=== PATIENT | male | born 1990 | race Caucasian/White ===

== ENCOUNTER 2025-01-10 08:59 | Outpatient (AMB) | payer MEDICAID, SELFPAY ==
--- NOTE | 2025-01-10 09:03 | A.OFFVIS_ITS ---
Vital Signs 3 01/10/25 09:09 Height 5 ft 8 in Weight 164 lb 8 oz BMI 25.0 BP 142/92 H Blood Pressure Location Lt brachial Position Sitting Pulse 81 Pulse Source Pulse Oximeter Pulse Oximetry (%) 97 Oxygen Delivery Method Room Air Intake Visit Reasons: Low Back Pain: Per PCP Referral Intake Note: Pain today 05/28 Med Specialist Required: No Accompanied by: Self / Same As Patient Allergies Penicillins Allergy (Unknown, Verified 01/10/25 09:15) Anaphylaxis Sulfa (Sulfonamide Antibiotics) Allergy (Unknown, Verified 01/10/25 09:15) Hives HPI Comments Details: The patient is a 34-year-old male presenting with acute exacerbation of chronic lower back pain. He describes his long-term lower back pain originating from pressure fractures sustained during a teenaged skateboarding incident. His pain has varied over time, becoming acutely more severe in the last six months, attributed to a fall on the stairs. The presenting symptoms include pain extending from the lower back throughout the hip and legs leading to weakness and numbness, along with pain radiating upwards into the neck and arms with associated neuromuscular symptoms, creating significant physical limitations and pain upon movement. Various interventions such as muscle relaxants, previous opioid pain medication, prescription medications, NSAIDS, heat, ice all without improvement of his pain. He completed PT approx 6 months ago without improvement, continues with HEP. Underwent injections over 5 years ago that he is not able to detail type or results of the injections. Recent Xray shows lumbar spondylosis. Denies recent MRI. - Pain onset: Initial injury at age 16, worsened in the past six months - Quality and character: Pulsating, tingling, numbness - Location: Lower back, radiating to neck, arms, hands, and legs - Exacerbating factors: Walking, standing, sitting, moving, twisting, lying down - Relieving factors: None stated effective - Interference: Activities of daily living including sitting, standing, laying, chores, dressing, and showering - Affect: Pain impacts daily tasks and causes psychological distress due to physical limitations - Analgesia: Currently on gabapentin (600 mg three times daily) and Methocarbamol 1500mg QID with limited effect on pain relief - Adverse Effects: Gabapentin provides some relief from restless legs, ineffective on overall pain - Activities of Daily Living: Difficulty with basic functions including dressing, showering; reliant on sitting positions to perform daily tasks - Aberrant Behaviors: No signs of misuse noted [facility] Medical History (Updated 01/10/25 @ 09:51 by Wanda Molina, FUN HOUSE ATTENDANT, FREIGHT CALLER) Ureteral stent present Intractable pain Hyperglycemia Chronic lower back pain Social History (Updated 01/10/25 @ 09:12 by Elizabeth Melissa) Tobacco use type: Cigarette Cigarettes Per Day: 15 Use of substances other than those prescribed or required for medical reasons: No Review of Systems Const Details: - Musculoskeletal: Reports history of chronic back pain, muscle weakness, pain radiating from lower back to neck, arms, and legs - Neurological: Reports tingling, numbness, heaviness in legs and arms - Constitutional: Reports difficulty with standing, walking, sitting, lying down; pain impacts most activities of daily living Physical Exam Vital Signs: Last Vital Signs Pulse 81 01/10/25 09:09 BP 142/92 H 01/10/25 09:09 Pulse Ox 97 01/10/25 09:09 Oxygen Delivery Method Room Air 01/10/25 09:09 BMI result Body Mass Index 25.0 Physical exam limited due to patient's intolerance to movement and palpation secondary to reported pain General: awake, alert, oriented. Answers questions appropriately. Skin: warm, dry, intact HEENT: Normocephalic. Hearing intact. Cardiac: External chest normal in appearance. Respiratory: No cough, audible wheezing or stridor. Abdomen: without gross distension. MS: No obvious swelling or deformities. Able to transition from sit to stand unassisted Ambulates with bilaterally normal heel strike and toe off Tenderness to palpation across entire back. increased tenderness over midline lumbar vertebrae and lumbar paraspinal muscles BLE strength 4/5 SLR negative bilaterally Neurological: Oriented to person, place, time and situation. Thought process intact. No gait abnormalities appreciated. Psychiatric: Appropriate mood and affect. Good judgment and insight. Results Reviewed Results Reviewed: 12/18/24 XR LS Assessment & Plan Assessment & Plan (1) Chronic pain syndrome: Code(s): G89.4 - Chronic pain syndrome Category: Medical (2) Lumbar spondylosis: Code(s): M47.816 - Spondylosis without myelopathy or radiculopathy, lumbar region Category: Medical (3) Chronic lower back pain: Code(s): M54.50 - Low back pain, unspecified; G89.29 - Other chronic pain Category: Medical Plan I plan to order an MRI to gather comprehensive data on the source and current state of his chronic pain, notably in the lumbar spine. Emphasizing alternative procedural intervention, spine injections are to be considered post-MRI to address pain and functionality. The patient will return for a follow-up visit to review MRI results and discuss tailored intervention plans. Clinical decisions are underpinned by his reported barriers in daily activities and failures of other pain management techniques. I discussed with the patient the potential benefit of obtaining an MRI to accurately diagnose his underlying condition, explaining that this will guide decisions on further interventions. I informed him of the merits of a focused approach on precise pharmacological and procedural treatments such as spinal injections delineated by imaging results. The limitations of current medications in managing his pain were considered, and the potential for adjustments depending upon clinical findings was explored. Emphasis was on gathering more substantial evidence via imaging to consider advanced pain management strategies, detailed during a scheduled follow-up. I addressed the importance of safe practices with medication and clarified that higher doses or new prescriptions lack justification without clear imaging or examination findings. Patient was informed and verbally consented to the use of an ambient scribe for clinic note documentation during this visit. Orders: Orders 2 MR lumbar spine wo con Today G89.29 - Other chronic pain, G89.4 - Chronic pain syndrome, M47.816 - Spondylosis without myelopathy or radiculopathy, lumbar region, M54.50 - Low back pain, unspecified Patient Instructions: - Expect a call to schedule your MRI, and ensure it is completed as promptly as possible. - Continue taking gabapentin as prescribed; note any changes in pain levels or new symptoms. - Avoid activities that exacerbate pain, and use supportive aids if walking or standing becomes too difficult. - Schedule a follow-up appointment to discuss MRI results and further pain management options. - Seek immediate medical attention if there is a sudden increase in pain, new weakness, or changes in your ability to perform daily activities. Coding Level of Care Code New Pt Level 4 (45130) Complex EM visit Add On G2211 Diagnoses Chronic pain syndrome G89.4 Lumbar spondylosis M47.816 Chronic lower back pain M54.50; G89.29
--- OUTSIDE RECORDS SUMMARY | 2025-01-10 09:07 | XMS_ITS | Encounter Summary ---
Author Organization [employer] Address [address] [place] [address] Care Team Providers Care Inpatient Pharmacist Name Role Phone Dary Herrera DO Primary Care Provider [phone] Lana Varghese Unavailable Unavailable Encounter Details Date Type Department Care Team (Late st Contact Info) Description 11/08/2023 Orders Only [facility] MEDICAL [address] [place] [address] Dary Herrera DO [address] [place] [address] Social History Tobacco Use Types Packs/Day Years Used Date Smoking Tobacco: Every Day Cigarettes Passive Smoke Exposure: Current Smokeless Tobacco: Never Alcohol Use Standard Drinks/Week Comments Not Currently 0 (1 standard drink = 0.6 oz pur e alcohol) Alcohol Answer Date Recorded How often do you have a drink containing alcohol ? 0 08/14/2023 How many drinks containing a lcohol do you have on a typical day when you are drinking? 0 08/14/2023 How often do you have six or more drinks on one occasion? 0 08/14/2023 Depression Answer Date Recorded Patient Health Questionnaire-9 Score 0 08/14/2023 Patient Health Questionnaire-9 Score 0 08/14/2023 Last PHQ-9: Questionnaire Data Not on file 1 10/14/2022 Housing Stability Answer Date Recorded What is your housing situation today? I have [place] 08/14/[address] you li ve. Do you have problems with any of the following? None of the above 08/14/2023 Food Insecurity Answer Date Recorded Within the past 12 months, y ou worried that your food would run out before you got money to buy more: Never True 08/14/2023 Within the past 12 months,th e food you bought just didn't last and you didn't have enough money to get more: Never True Transportation Answer Date Recorded In the past 12 months, has l ack of transportation kept you from medical appts, meetings, work or from getting things needed for daily living? No 07/21/2023 Intimate Partner Violence Answer Date R ecorded Within the last year, have y ou been afraid of your partner or ex-partner? 2 08/14/2023 Within the last year, have y ou been humiliated or emotionally abused in other ways by your partner or ex-partner? 2 Within the last year, have y ou been kicked, hit, slapped, or otherwise physically hurt by your partner or ex-partner? 2 08/14/2023 Within the last year, have y ou been raped or forced to have any kind of sexual activity by your partner or ex-partner? 2 08/14/2023 Utilities Answer Date Recorded In the past 12 months, has t he electric, gas, oil or water company threatened to shut off services in your home? No 08/14/2023 Depression Answer Date Recorded Patient Health Questionnaire-2 Score 0 08/14/2023 Education Answer Date Recorded What is the highest level of school you have completed or the highest degree you have received? 11th grade 07/21/2023 Sex and Gender Information Value Date Recorded Sex Assigned at Male 11/15/2022 3:13 PM EST Legal Sex Male 5:34 PM EDT Gender Identity Male 11/15/2022 3:13 PM EST Sexual Orientation Straight 11/15/2022 3: 13 PM EST documented as of this encounter Plan of Treatment Upcoming Encounters Date Type Department Care Team (Late st Contact Info) Description 02/18/2025 1:45 PM EDT Office Visit [facility] MEDICAL [address] [place] [address] Dary Herrera DO [address] [place] [address] documented as of this encounter Visit Diagnoses Not on filedocumented in this encounter Additional Health Concerns Assessment Noted Time PHQ-9 Depression Total Score: 0 08/14/20 23 3:30 PM EST documented as of this encounter Care Teams Inpatient Pharmacist Relationship Specialty Start Date End Date Dary Herrera DO [address] [place] [id number] PCP - General Family Medicine 07/21/23 Lana Varghese Community Health Worker Community Health Worker 08/03/23 documented as of this encounter
--- OUTSIDE RECORDS SUMMARY | 2025-01-10 09:07 | XMS_ITS | Encounter Summary ---
Author Organization [employer] Address [address] [place] [address] Care Team Providers Care Parole Hearing Officer Name Role Phone Dary Herrera DO Primary Care Provider [phone] Lana Varghese Unavailable Unavailable Reason for Visit * Reason Onset Date Comments question about referral 12/18/2024 Encounter Details Date Type Department Care Team (Late st Contact Info) Description 12/18/2024 Telephone [facility] MEDICAL [address] [place] [address] Dary Herrera DO [address] [place] [address] question about referral Social History Tobacco Use Types Packs/Day Years Used Date Smoking Tobacco: Every Day Cigarettes 1 1.3 Started: 2023 Passive Smoke Exposure: Current Smokeless Tobacco: Never Alcohol Use Standard Drinks/Week Comments Not Currently 0 (1 standard drink = 0.6 oz pur e alcohol) Alcohol Answer Date Recorded How often do you have a drink containing alcohol ? 0 10/25/2024 How many drinks containing a lcohol do you have on a typical day when you are drinking? 0 10/25/2024 How often do you have six or more drinks on one occasion? 0 10/25/2024 Depression Answer Date Recorded Patient Health Questionnaire-9 Score 0 08/14/2023 Patient Health Questionnaire-9 Score 0 08/14/2023 Last PHQ-9: Questionnaire Data Not on file 1 10/14/2022 Housing Stability Answer Date Recorded What is your housing situation today? I have [employer] villa 10/25/[address] you li ve. Do you have problems with any of the following? None of the above 10/25/2024 Food Insecurity Answer Date Recorded Within the past 12 months, y ou worried that your food would run out before you got money to buy more: Never True 10/25/2024 Within the past 12 months,th e food you bought just didn't last and you didn't have enough money to get more: Never True 03/2025 Transportation Answer Date Recorded In the past 12 months, has l ack of transportation kept you from medical appts, meetings, work or from getting things needed for daily living? No 10/25/2024 Intimate Partner Violence Answer Date R ecorded [...] shut off services in your home? No 10/25/2024 Depression Answer Date Recorded Patient Health Questionnaire-2 Score 0 10/25/2024 Internet Access Answer Date Recorded Internet Access Q1 Yes 10/25/2024 Internet Access Q2 Not on file 10/25/2024 Education Answer Date Recorded What is the highest level of school you have completed or the highest degree you have received? 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 * Telephone Encounter - Eufemia Ho - 12/18/2024 4:08 PM EDT Call to patient x 2 left voicemail to call back. Called office to follow up on patient and he is scheduled for 12/24/24 at 2:[address] Platt that patient scheduled with that office today at 12:45 pm. Waiting ground crew lines person back from patient. * Telephone Encounter - Linda Bush - 12/18/2024 3:47 PM EDT Patient called stating I just got off the phone with Dr. Platt's office and now apparently they're saying that they can't find the referral for the pain management, I talked to somebody yesterdayand they said my appointment was for today, then when I got there, they said that nobody was there and that the appointment was for yesterday but the appointment was for today, somebody just messed up over there and they're not admitting it but now they're saying that they don't know if they can keep my appointment because now they can't find any records of me making appointment for me or for my referral, if they could get a hold of Dr. Platt's office for me that would be great, why would I make that up? Why would I drive 45 minutes to an appointment I don't have? I don't know but I have their card in my back pocket: Dr. Ron Platt, phone number [phone], fax number [phone],[address] [place] [address]. Patient states he would like a call back with updates, thank you! documented in this encounter Plan of Treatment Upcoming Encounters Date Type Department Care Team (Late st Contact Info) Description 02/18/2025 1:45 PM EDT Office Visit [facility] MEDICAL [address] [place] [address] Dary Herrera DO [address] [place] [address] documented as of this encounter Visit Diagnoses Not on filedocumented in this encounter Additional Health Concerns Assessment Noted Time PHQ-9 Depression Total Score: 0 08/14/20 3:30 PM EST documented as of this encounter Care Teams Parole Hearing Officer Relationship Specialty Start Date End Date Dary Herrera DO [address] [place] [address] PCP - General Family Medicine 07/21/23 Lana Varghese Community Health Worker Community Health Worker 08/03/23 documented as of this encounter
--- OUTSIDE RECORDS SUMMARY | 2025-01-10 09:07 | XMS_ITS | Encounter Summary ---
Author Organization [employer] Address [address] [place] [address] Care Team Providers Care Document Image Technician Name Role Phone Dary Herrera DO Primary Care Provider [phone] Lana Varghese Unavailable Unavailable Reason for Visit * Reason Onset Date Comments Med Refill 10/12/2023 Encounter Details Date Type Department Care Team (Late st Contact Info) Description 10/12/2023 Refill [place] [facility] MEDICAL [address] [place] [address] Dary Herrera DO [address] [place] [address] Recurrent low back pain Social History Tobacco Use Types Packs/Day Years [...] PM EST documented as of this encounter Miscellaneous Notes * Telephone Encounter - Dary Herrera DO - 10/12/2023 10:21 PM EST Pt requested too soon * Telephone Encounter - BETY Manning - 10/12/2023 3:45 PM EST [facility] Last fill Date:09/25/23 Last OV:10/09/23 Next OV:10/17/23 Last UTOX:09/25/23 CSA Date:09/25/23 DNF Date: 10/23/23 documented in this encounter Plan of Treatment Upcoming Encounters Date Type Department Care Team (Late st Contact Info) Description 02/18/2025 1:45 PM EDT Office Visit [facility] MEDICAL [address] [place] [address] Dary Herrera DO [address] [place] [address] documented as of this encounter Visit Diagnoses Diagnosis Recurrent low back pain Lumbago documented in this encounter Additional Health Concerns Assessment Noted Time PHQ-9 Depression Total Score: 0 08/14/20 3:30 PM EST documented as of this encounter Care Teams Document Image Technician Relationship Specialty Start Date End Date Dary Herrera DO [address] [place] [address] PCP - General Family Medicine 07/21/23 Lana Varghese Community Health Worker Community Health Worker 08/03/23 documented as of this encounter
--- OUTSIDE RECORDS SUMMARY | 2025-01-10 09:07 | XMS_ITS | Clinical Summary ---
Author Organization [employer] Address [address] [facility] [address] [place] [address] Care Team Providers Care Manager Leasing Name Role Phone Dary Herrera DO Primary Care Provider Lana Varghese Unavailable Unavailable Allergies Active Allergy Reactions Criticality Noted Date Comments Penicillin G Hives Low 11/17/2022 Sulfa Antibiotics Hives Low 11/17/2022 Medications diphenhydrAMINE (BENADryl) 25 MG tabletIndicatio ns:Allergy history, drug Take 1 tablet (25 mg) by mouth every 4 (four) hours if needed (allergic reaction). 30 tablet 04/16/20 24 Active naproxen sodium (Anaprox) 550 MG tablet Take 1 tablet by mouth if needed in the morning and at bedtime for pain. 02/14/20 24 Active albuterol (ProAir HFA) 108 (90 Base) MCG/ACT inhalerIndicati ons:COVID-19,Sh ortness of breath Inhale 2 puffs every 4 (four) hours if needed for wheezing or shortness of breath. 8.5 g 10/25/19 25 026 Active Fluticasone Furoate-Vilante rol (Breo Ellipta) 100-25 MCG/ACT aerosol powder Inhale 1 puff Once per day. 1 each 11 10/25/19 25 Active methocarbamol (Robaxin) 500 MG tabletIndicatio ns:Recurrent low back pain Take 3 tablets (1,500 mg) by mouth every 8 (eight) hours if needed for muscle spasms. 135 tablet 12/23/19 25 Active gabapentin (Neurontin) 300 MG capsuleIndicati ons:Recurrent low back pain Take 2 capsules (600 mg) by mouth 3 times daily. 180 capsule 12/31/19 25 Active lidocaine (Lidoderm) 5 % patchIndication s:Atypical nevus of back Apply 1 patch topically Once per day. Apply to painful area 12 hours per day, remove for 12 hours. 30 patch 2 01/07/20 25 025 Active aluminum-magnes ium hydroxide-simet hicone (Maalox MAX) 400-400-40 MG/5ML suspensionIndic ations:Gastroes ophageal reflux disease, unspecified whether esophagitis present Take 20 mL by mouth every 6 (six) hours if needed for heartburn. Do not exceed 3 doses (60 mL) in 24 hours. 01/05/20 24 025 Discontinued( erapy completed) celecoxib (CeleBREX) 100 MG capsuleIndicati ons:Recurrent low back pain Take 1 tablet (100 mg) by mouth once daily for 14 days, then take 1 tablet (100 mg) by mouth twice daily. 60 capsule 5 10/07/19 25 025 Discontinued clindamycin (Cleocin) 300 MG capsule TAKE 1 CAPSULE BY MOUTH EVERY 8 HOURS X7 DAYS 10/13/19 25 025 Discontinued( erapy completed) gabapentin (Neurontin) 300 MG capsuleIndicati ons:Recurrent low back pain TAKE 2 CAPSULES (600 MG) BY MOUTH 3 TIMES DAILY. DO NOT START BEFORE NOVEMBER 04, 2024. 180 capsule 11/29/19 25 025 Discontinued(Re order (will not trigger notification to Pharmacy)) Active Problems Problem Noted Date Diagnosed Date Atypical nevus of back 01/06/2025 Bilateral sciatica 01/06/2025 Spondylolysis of lumbar region 01/06/2025 COVID-19 10/25/2024 Shortness of breath 10/25/2024 Opioid dependence with current use 04/16/2024 Overview (04/16/2024): In process of planned taper with his PCP, expressing some anxiety about symptoms experienced recently over the last few weeks that he is concerned are opioid withdrawal. Discussed in detail with Dandre and reassured no red flag symptoms of this at tonight's visit. Encouraged to eat lightly and regularly and stay very well hydrated if having any recent diarrhea and try to avoid/postpone/reduce smoking as a GI irritant/motility trigger. Discussed some strategies for distraction, keeping a routine for daily activities, meals, sleep and taking medications exactly as prescribed. Notes the codyrex is helping some with his chronic back pain. Agrees to above and will keep a symptoms diary and call for in person followup with PCP if symptoms of concern to him persist/do not improve over the next few days of treatment/taper. No further questions/concerns at visit conclusion. Dermatitis due to unknown cause 12/27/2023 Assessment & Plan (12/27/2023 4:37 PM EDT): Pt states on Monday his GF bought him a new pair of pj pants from [employer]. He states he did not wash them but put them on and he began having itching hives on right leg only, mostly behind the knee. States he started taking Benadryl 2 caps every 4-6 hours, which has not been helping. He states he has not been able to work due to the itching for the last 2 days. States it then moved to his left leg the next day (Monday) and up to his buttock and lower back. He states yesterday he had some spots that were on both shoulders and under his left eye. Pt denies fever/chills/body aches. Pt denies any other symptoms. Pt denies GI upset. Pt denies hiking/any outdoor activities. Pt states Benadryl is not helping at all. The pt does not have any new pets or new lotions/detergents/soaps. There was no hives noted today. Pt does continue to itch his arms, shoulders, and lower back while in the visit. There were 2 very small pinprick erythematous papules noted in the bilateral lower back near the L3-4 region as well as on bilateral shoulders. There was none noted under his eyes or on his legs. Work note given for Monday through today. Discussed short burst of steroids and Hydroxyzine for itching. Hydroxyzine short term, tid, for 7d only. Discussed Medrol pack as well. Discussed SE/AE of both medications. Discussed if pt has shortness of breath, fever, CP, diff breathing or anything worsens, then he should go to the ER. Follow up as needed. Carpal tunnel syndrome of right wrist 11/20/2023 Overview (11/20/2023): NCV/EMG 11/15/23 - mild right and borderline left carpal tunnel syndrome Gastroesophageal reflux disease 11/10/2023 Assessment & Plan (01/24/2024 10:16 PM EDT): RX Maalox maximum strength prn, advised insurance may not cover and can continue to buy OTC if not Assessment & Plan (11/13/2023 3:03 PM EST): Episodes of severe symptoms, referral to GI pending. Denies improvement with pantoprazole or omeprazole daily. Discussed option to trial omeprazole at 20mg twice daily before meals. Stop pantoprazole. Continue Maalox following appropriate dosing instructions for symptomatic relief. Reviewed and discussed on going lifestyle changes to reduce GERD symptoms. Assessment & Plan (11/10/2023 5:02 PM EST): Frequent episodes of severe reflux despite PPI therapy. Symptomatic therapy prescribed Recommend GI referral for further evaluation (concern for hiatal hernia, esophagitis, etc), pt in agreement Reviewed dietary and lifestyle modifications to reduce GERD, pt aware Pain, dental 10/09/2023 Assessment & Plan (10/09/2023 7:36 PM EST): 33 year old man with hx of recent left upper molar dental extraction by his dentist in [facility] on 10 06 23 presents today requesting narcotic pain reliever for persistent dental extraction site pain. However, he states he just picked up his Clindamycin tonight and hasn't taken the first dose yet. Also is not taking any anti inflammatory pain relievers such as high dose ibuprofen, but is taking the oxycodone he takes regularly for back pain, 5 mg po q 6 hours as needed and states that isn't helping his dental pain. Encouraged to start his antibiotic immediately as well as regular TID ibuprofen 800 mg with a meal as the most effective way to reduce inflammation related pain after a dental extraction, especially since he is already taking oxycodone regularly. Discussed the pain relieving effect of the antibiotic also and to call his dentist office and her covering dentist office in the a.m. to schedule a followup with her [place] the country, as well as call the dental office to which his dentist office referred him if he needs an exam prior to her return related to any persistent pain.. Note that patient was prescribed both diclofenac 25 mg TID (15 capsules) as well as Tramadol 50 mg q 6 hours (10 capsules) on the at the ER but apparently only filled the Tramadol. [employer] database referenced and confirmed. Pt agrees to plan to schedule with dentist if any persistent pain for exam of the extraction site, will need in office evaluation if this is the case as pain should be reducing at this time 3 days post extraction if using the high dose ibuprofen (new rx provided tonight for patient) along with the clindamycin as prescribed by his dentist but which he has not yet started to take. No further questions or concerns at call conclusion. Smoking 08/03/2023 08/03/2023 Recurrent low back pain 07/27/2023 Assessment & Plan (04/09/2024 9:57 PM EDT): Continue oxycodone wean of -5 mg weekly, this week from 25 to 20 mg Trial Celecoxib at low dose. Pt has sulfa allergy; advised that cross reaction is very unlikely but possible; advised to stop med and contact the clinic for any suspected reaction Assessment & Plan (01/24/2024 10:14 PM EDT): UDS today PDMP reviewed Increase oxycodone to 20 mg in AM followed by 10 mg q6h at other intervals for a total of 50 mg daily Assessment & Plan (12/14/2023 8:05 PM EDT): Dandre 33 y o man with hx chronic back pain on the after hours telehealth schedule tonight with questions about his pain medication. States he saw a neurosurgeon on Monday this week in [place] (see HPI, Dandre cannot recall the name of the specialist but states he is at [address] in [place]. He states the neurosurgeon told him he saw found fractures near his tailbone that showed on imaging done there. Dandre states that he will be having additional imaging tomorrow after work that the neurosurgeon ordered. Explained to Dandre that we have no neurosurg consult notes or imaging reports found in Nikolai's chart and let him know we would ask staff to request (and he can ask his neurosurgeon as well) to share his report/visit note with his PCP to review findings and recommendations. Dandre states the neurosurgeon told him to ask his PCP about increasing the frequency of his pain medication. Dandre confirms he has all meds prescribed and is using them as prescribed, including the oxycodone and the gabapentin. Note that PCP recently (September 2023) increased Dandre' oxycodone to 10 mg and advised him to f/up with her in one month. Tondhaval we encouraged Dandre to call the [facility] tomorrow to make that overdue followup visit, especially if he is having concerns about his pain control despite the dose increase in the oxycodone to 10 mg on 10 17 2023. Encouraged Dandre to discuss with his specialist and his PCP if any interventive pain management procedures might be considered to provide him improved/sustained pain relief without having to increase the dose or frequency of his opiod and neuropathic pain relieving medications to reduce the risk of this regimen. Pt agrees to plan, message to PCP/referral nurses that we would like to obtain the neurosurgeon's visit notes and imaging results/his recommendations and have pt see his PCP in person as clinically indicated now for followup. Assessment & Plan (10/17/2023 1:51 PM EST): Cautiously increasing oxycodone to 10 mg. Cautioned on overuse, sedation risk. Continue gabapentin also. Continue physical therapy, home stretches. Reviewed MRI which showed minimal stable changes of lumbar spine, suspect pain is myofascial. Follow up 1 month or sooner prn Last pdmp check 10/17/23 Assessment & Plan (09/25/2023 11:39 AM EST): Objective weakness on exam concerning for spinal stenosis or other myelopathy. No b/b incontinence. ER precautions advised. Urgent MRI ordered for evaluation. Refer to spine surgery. Given potential for significant pathology will prescribe a low dose of opioids for short term whiel workup is being done. Advised patient I do not intend this to become a chronic RX for him, and I will defer to surgeon once he is seen. Also discussed at length the importance of taking only as prescribed, advised that using more than prescribe can lead to overdose. Pt expressed understanding. Will obtain UDS and CSA today Assessment & Plan (08/28/2023 11:40 PM EST): Emphasized importance of physical therapy as a component of treatment, encouraged to schedule as soon as possible Unfortunately has had lack of effectiveness and/or side effects with several first- and second-line medications for chronic pain (ibuprofen, gabapentin, duloxetine, amitriptyline) and now buprenorphine. Symptoms not typical of buprenorphine adverse effect, especially at such a low dose, though it is possible. They are more consistent with opioid withdrawal and this was discussed with patient but pt denies recent use of opiates. Discussed giving buprenorphine a full trial as any side effects would likely yuan within several days. Patient declined, does not wish to undergo side effect any longer. Discussed that due to chronicity of back pain and history of analgesic abuse he is not a candidate for full opioid agonist treatment at this time. Also at issue is a UA from April positive for oxycodone and buprenorphine which were not on PDMP records, though patient denies use of any non-prescribed substances. Patient became upset at hearing I would not prescribe opioids and stated he will be finding another clinic to prescribe what he feels he needs. He was willing to trial duloxetine either though did not seem to think this would help either. Assessment & Plan (08/21/2023 9:15 AM EST): Emphasized importance of physical therapy as a component of treatment, encouraged to schedule as soon as possible Unfortunately has had lack of effectiveness and/or side effects with several first- and second-line medications for chronic pain (ibuprofen, gabapentin, duloxetine, amitriptyline). Will try buprenorphine for chronic pain, starting at Suboxone 2-0.5mg once daily. Educated on how to use buccal films. Follow up in 1 month or sooner if concerns/questions arise Assessment & Plan (08/14/2023 5:40 PM EST): Recurrent/acute on chronic low back pain with radiculopathy Awaiting X rays, orthopedics and PT referrals Advised patient that opioids are not first line; in addition his history of using medications other than prescribed raises safety concerns. Trial tizanidine, steroid burst Assessment & Plan (08/03/2023 10:03 AM EST): Records form ortho in 2014 reviewed. Recurrent/acute on chronic low back pain with radiculopathy. Orthopedics referral entered by [employer] OPERATOR CHIEF at last same-day visit, pending. Preliminary X rays ordered Referred to physical therapy Patient requesting opioids; I discussed that opioids are not first line for chronic or progressive low back pain. Trial gabapentin 300 mg TID titrate up to 600 mg TID. Follow up 3 months or prn Assessment & Plan (07/27/2023 7:48 PM EST): Pt reports worsening chronic low back pain with sciatica, states thought was RLS but the ropinarole does nothing and I took 5 of them No bowel or bladder dysfunction, no saddle area numbness. States hasn't had any ortho evaluation for years and last imaging showed a big problem with my last three discs and now have leg weakness after sitting for a long time . Discussed with pt recommendation for engagement specialist exam and also discussed red flag symptoms to present to ER vs wait for specialist appointment. He agrees to plan. Paresthesia and pain of both upper extremities 1 2022 Assessment & Plan (07/24/2023 5:08 PM EST): Paresthesia and pain may be due to CTS, but additional weakness and pain in forearms and leg symptoms concerning for underlying myopathy vs neuropathy Labs as below Refer for nerve conduction studies to pinpoint etiology of symptoms Start methocarbamol and pramipexole for symptoms RLS (restless legs syndrome) 07/22/2023 Overview (07/22/2023): Did not tolerate pramipexole, negative side effects. Advised to stop med. Will trial ropinorole. Assessment & Plan (07/24/2023 5:08 PM EST): Start methocarbamol and pramipexole for symptoms Dental infection 06/20/2023 Overview (06/20/2023): Pt is PCN allergic was rx'd doxycycline at the ER yesterday and tolerating it well, Has appt with his dentist on for treatment of dental infection. No fevers. Anxiety 06/16/2023 Overview (06/16/2023): New pt to this clinician but established with PCP JOHN PAUL Bassett at [place] on schedule tonight for telehealth visit reporting that his therapist Shelia Ortiz at [facility] recommended he ask his PCP for med for anxiety and ADHD. Pt states the therapist told him it would be 10 months before she could get him in with prescriber there. Reviewing patient's concern and starting to discuss and do PHQ9/GAD7 screening when he stated: I just remembered I'm waiting for a ride and not in a good place to talk, can we reschedule this for tomorrow (will be Sat 06/17) Explained to pt I don't have a schedule for patients tomorrow and recommended he call his PCP office to reschedule this visit to a day and time when he has the privacy to talk freely. He denies SI and HI and states he is in a safe place , but not a place where he can talk to provider tonight. No further questions or concerns and pt terminated the call. Assessment & Plan (06/20/2023 6:56 PM EDT): Discussed in detail risks/benefits and alternatives to hydroxyzine 10 mg PO 30 min before HS, if tolerated well with no adverse s.e. may take up to TID and followup with his PCP, also aware may be somewhat sedating and hopes this might help with his difficulty falling asleep at times. Pt states he wants to try the hydroxyzine and let us know if this works well for him or not. Also recommend having the ADHD, PHQ9 and GAD7 screenings done with his therapist share with his PCP/chart here at [place] for future visit. Resolved Problems Problem Noted Date Diagnosed Date Resolved Date Abuse of analgesics 08/14/2023 10/17/19 24 Overview (10/17/2023): In the past has taken gabapentin in excess of 4500mg daily, and ibuprofen 3600 mg daily, both well above prescribed levels. Assessment & Plan (08/28/2023 11:43 PM EST): At prior visit patient endorsed taking gabapentin 300mg, 3 tabs (900 mg) q4 hours and ibuprofen 600mg, 2 tabs (1200 mg) [id number], due to perceived lack of efficacy of prescribed dosage. Significant risks/toxicities associated with overuse of these medications was discussed. Patient denies taking either currently. Assessment & Plan (08/14/2023 5:35 PM EST): Taking severely elevated doses of ibuprofen, discussed significant risks of GI and renal complications Also taking gabapentin much higher dose than prescribed, advised to take medications only as prescribed Advised I cannot give stronger medications if he is taking things not as prescribed due to risk of side effects or overdose Encounters Date Type Department Care Team Description 01/06/2025 2:20 PM EDT Office Visit [address] [address] Renetta Peña, JOEY Atypical nevus of back (Primary Dx); Bilateral sciatica; Spondylolysis of lumbar region 01/06/2025 Travel 12/30/2024 Orders Only [facility] [address] [place] [address] Dary Herrera DO 12/30/[address] [address] Dary Herrera, hospital discharge, obtain hospital records 12/30/[address] [address] Dary Herrera, Recurrent low back pain 12/19/2024 Telephone [facility] [address] [place] [address] Dary Herrera, DO ER Follow-up 12/18/[address] [address] Dary Herrera DO question about referral 12/18/2024 Telephone [facility] [address] [place] [address] Dary Herrera DO 12/17/[address] [place] [address] Dary Herrera DO Results 12/12/2024 11:30 AM EDT Clinical Support [address] [place] [address] Tammy Dorado RN [facility] use of drug 12/12/2024 Travel 12/11/[address] [place] [address] Dary Herrera DO FYI 11/29/2024 Population Health Risk Score [facility] ([facility] Department [address] [place] [phone] Provider, Population Health Generic 11/27/[address] [address] Dary Herrera DO Recurrent low back pain 11/22/2024 Telephone [facility] [address] [place] [address] Dary Herrera DO 10/28/[address] [address] Dary Herrera DO Recurrent low back pain (Primary Dx) 10/25/2024 9:40 AM EST Telemedicine [address] [address] Renetta Peña FNP-Pratik COVID-19 (Primary Dx); Shortness of breath 10/25/[address] [address] Renetta Peña FNP-Pratik COVID-19; Shortness of breath 10/23/2024 Telephone [facility] [address] [place] [address] Dary Herrera DO ED FU, fall, COVID pos, utox from Last 3 Months Immunizations Name Administration Dates Next Due DTP 07/28/1995, 2,04/01/1991,1990,1990 Hep B, Adolescent or Pediatric 02/15/1996,1994,07/28/1995 Hib (PRP-T) 04/24/1992 Influenza, IIV3, injectable 07/22/2015 MMR 09/08/1995,04/24/1992 Polio, Unspecified 06/27/1995, 2,01/21/1991,1990 TD (adult), 2 Lf tetanus tox oid, preservative free, adsorbed 11/18/2002 Tdap 12/18/2023,01/14/2014 Varicella 07/31/2003 Social History Tobacco Use Types Packs/Day Years Used Date Smoking Tobacco: Every Day Cigarettes 1 1.3 Started: 2023 Passive Smoke Exposure: Current Smokeless Tobacco: Never Tobacco Cessation:Ready to Q uit: Not Asked; Counseling Given: Not Answered Alcohol Use Standard Drinks/Week Comments Not Currently [...] file Not on file Not on file Last Filed Vital Signs Vital Sign Reading Time Taken Comments Blood Pressure 123/81 01/06/2025 2:26 PM EDT Pulse 67 01/06/2025 2:26 PM EDT Temperature 36.6 ??C (97.9 ??F) 01/06/2025 2:26 PM ED T Respiratory Rate 16 01/06/2025 2:26 PM EDT Oxygen Saturation 96% 01/06/2025 2:26 PM EDT Inhaled Oxygen Concentration - - Weight 74.4 kg (164 lb) 01/06/2025 2:26 PM EDT Height 172.7 cm (5' 8 ) 04/16/2024 6:16 PM EDT Body Mass Index 24.94 04/16/2024 6:16 PM EDT Plan of Treatment Upcoming Encounters Date Type Department Care Team (Late st Contact Info) Description 02/18/2025 1:45 PM EDT Office Visit [facility] [address] [place] [address] Dheeraj HerreraraDO [address] [place] [address] Health Maintenance Due Date Last Done Comments Pneumococcal Vaccine: Pediatrics (0 to 5 Years) and At-Risk Patients (6 to 49) Years) (1 of 2 - PCV) 2009 COVID-19 Vaccine ( - season) 2024 Influenza Vaccine (#1) 2024 07/22/2015 Alcohol/Substance Use Screening 10/25/2025 10/25/2024 Depression Screening 10/25/2025 10/25/2024, 08/14/20 23 Family Planning (PISQ) 10/25/2025 10/25/2024 SDOH Screening 10/25/2025 10/25/2024 Tobacco Screening 01/06/2026 01/06/2025 Lipid Panel 07/21/2028 07/21/2023 DTaP/Tdap/Td Vaccines (8 - Td or Tdap) 12/17/2033 12/18/2023, 01/14/2014, 11/18/2002, Additional history exists Zoster Vaccines (1 of 2) 2040 RSV Patients and Patients Aged 60 years or older (1 - 1-dose 75+ series) 2065 HIB Vaccines Completed 04/24/1992 IPV Vaccines Completed 06/27/1995, 03/1992, 01/21/1991, Additional history exists Hepatitis B Vaccines Completed 02/15/1996, 09/08/1995, 07/28/1995 HIV Screening Completed 08/25/2021, 03/19/2013 Hepatitis C Screening Completed 08/25/2021, 021 HPV Vaccines Aged Out No longer eligi ble based on patient's age to complete this topic Hepatitis A Vaccines Aged Out No long er eligible based on patient's age to complete this topic Meningococcal Vaccine Aged Out No bria eben eligible based on patient's age to complete this topic RSV under 20 months Aged Out No longe r eligible based on patient's age to complete this topic Rotavirus Vaccines Aged Out No longer eligible based on patient's age to complete this topic Procedures Procedure Name Priority Date/Time Associated Diagnosis Comments XR LUMBAR SPINE 2-3 VIEWS Routine 12/18/2024 1:17 PM EDT COMPREHENSIVE METABOLIC PANEL Routine 12/17/2024 1:19 PM EDT COCAINE AND MTB, MS, UR RFX (NON ORDERABLE) Routine 12/12/2024 12:00 AM EDT TOXASSURE?? FLEX 15, URINE Routine 12/12/2024 12:00 AM EDT [facility] use of drug LIPID PANEL, STANDARD Routine 07/21/2023 9:08 AM EDT Lipid screening ZZZ HISTORICAL HEPATITIS C ANTIBODY TEST Routine 08/25/2021 3:21 PM EST HIV 1/2 ANTIGEN/ANTIBODY, FOURTH GENERATION W/RFL Routine 08/25/2021 3:21 PM EST from Last 3 Months or Most Recently Relevant to Health Maintenance Results * XR Lumbar Spine 2-3 Views (12/18/2024 1:17 PM EDT) Anatomical Region Laterality Modality Spine, L-spine Radiographic Clari ging us Dary Herrera DO IMG XR PROCEDURES Final Result * Comprehensive Metabolic Panel (12/17/2024 1:19 PM EDT) Blood Venous blood specimen / Unknown us Dary Herrera DO LAB BLOOD ORDERABLES Final Res ult * ToxAssure?? Flex 15, Urine (12/12/2024 12:00 AM EDT) Summary Report FINAL [facility] 1 Comment: Cocaine / Mtb, MS, Ur RFX ToxAssure Flex 15, Ur Test ? Result ? Flag ? Units Drug Present ??Benzoylecgonine ?324 ? ng/mg creat ?? Benzoylecgonine is a metabolite of cocaine; its presence ?? indicates use of this drug. ??Source is most commonly illicit, but ?? cocaine is present in some topical anesthetic solutions. Test ?Result ?Flag ?? Units ?Ref Range ??Creatinine ?75 ? mg/dL ?>=20 Declared Medications: Medication list was not provided. For clinical consultation, please call . Creatinine, Urine 75 mg/dL [facility] 1 Comment:REFERENCE RANGE: Ref Range>=20 Amphetamines IA, Urine Negative CUTOFF:3 00 ng/mL [facility] 1 Benzodiazepines, Urine Negative [facility] 1 Diazepam, Urine Not Detected ng/mg creat [facility] 1 Desmethyldiazepam, Urine Not Detected ng/mg creat [facility] 1 Oxazepam, Urine Not Detected ng/mg creat [facility] 1 Temazepam, Urine Not Detected ng/mg creat [facility] 1 Comment: Expected metabolism of benzodiazepine class drugs: Parent Drug ? Detected Metabolites ? Diazepam: ? Desmethyldiazepam, Temazepam, Oxazepam Chlordiazepoxide: Desmethyldiazepam, Oxazepam Clorazepate: ?Desmethyldiazepam, Oxazepam Halazepam: ?Desmethyldiazepam, Oxazepam Temazepam: ?Oxazepam Oxazepam: ? None Alprazolam, Urine Not Detected ng/mg creat [facility] 1 Alpha-hydroxyalpraz olam, Urine Not Detected ng/mg creat [facility] 1 Desalkylflurazepam, Urine Not Detected ng/mg creat [facility] 1 Lorazepam, Urine Not Detected ng/mg creat [facility] 1 Alpha-hydroxytriazo tolliver, Urine Not Detected ng/mg creat [facility] 1 Clonazepam, Urine Not Detected ng/mg creat [facility] 1 7-aminoclonazepam, Urine Not Detected ng/mg creat [facility] 1 Midazolam, Urine Not Detected ng/mg creat [facility] 1 Alpha-hydroxymidazo tolliver, Urine Not Detected ng/mg creat [facility] 1 Flunitrazepam, Urine Not Detected ng/mg creat [facility] 1 Desmethylflunitraze azar, Urine Not Detected ng/mg creat [facility] 1 Cocaine Metabolite IA, Urine CUTOFF:1 50 ng/mL [facility] 1 Comment:Further testing quyen cated ETHYL ALCOHOL Enzymatic, Urine Negative CUTOFF:0 .020 g/dL [facility] 1 CANNABINOIDS IA, Urine Negative CUTOFF:2 0 ng/mL [facility] 1 6-Acetylmorphine IA, Urine Negative CUTOFF:1 0 ng/mL [facility] 1 OPIATE CLASS IA, Urine Negative CUTOFF:1 00 ng/mL [facility] 1 OXYCODONE CLASS IA, Urine Negative CUTOFF:1 00 ng/mL [facility] 1 Methadone IA, Urine Negative CUTOFF:1 00 ng/mL [facility] 1 METHADONE MTB IA, Urine Negative CUTOFF:1 00 ng/mL [facility] 1 BUPRENORPHINE, Urine Negative [facility] 1 Buprenorphine, Urine Not Detected ng/mg creat [facility] 1 Norbuprenorphine, Urine Not Detected ng/mg creat [facility] 1 FENTANYL & ANALOGUES, Urine Negative [facility] 1 Fentanyl, Urine Not Detected ng/mg creat [facility] 1 Norfentanyl, Urine Not Detected ng/mg creat [facility] 1 TAPENTADOL IA, Urine Negative CUTOFF:2 00 ng/mL [facility] 1 Tramadol IA, Urine Negative CUTOFF:2 00 ng/mL [facility] 1 Barbiturates IA, Urine Negative CUTOFF:2 00 ng/mL [facility] 1 Phencyclidine (PCP) IA, urine Negative CUTOFF:2 5 ng/mL [facility] 1 Urine (Urine, Random) 12/12/2024 12/12/2024 Comment:Urine, Random Narrative [facility] 1 - 12/16/2024 6:05 PM EDT Performed at: ??01 - [facility] [address] [place] [address] ??[id number] Irrigation Technician: Livier Mak [facility], Phone: ??[phone] Dary Herrera DO LAB URINE ORDERABLES Final Res ult Performing Organization Address [facility] de Phone Number [facility] * Cocaine and Mtb, MS, Ur RFX (12/12/2024 12:00 AM EDT) Cocaine Confirmation, Urine +POSITIVE+ [facility] 1 Cocaine, Urine Not Detected ng/mg creat [facility] 1 Benzoylecgonin e, Urine 324 ng/mg creat [facility] 1 Cocaethylene, Urine Not Detected ng/mg creat [facility] 1 12/12/2024 12/12/2024 Comment:Urine, Random Narrative [facility] 1 - 12/16/2024 6:05 PM EDT Performed at: ??01 - [facility] [address] [place] [address] ??[id number] Irrigation Technician: Livier Mak [facility], Phone: ??[phone] Dary Herrera DO HISTORICAL/NON ORDERABLE LABS Final Result Performing Organization Address [facility] de Phone Number [facility] * (ABNORMAL) Lipid panel (07/21/2023 9:08 AM EDT) Cholesterol, Total 166 (<200) MG/DL [facility] Triglyceride (mg/dL) in Serum/Plasma 205(H) (<150) MG/DL [facility] HDL Cholesterol 40 (>39) MG/DL [facility] LDL Cholesterol, Calculated 85 (0-130) MG/DL [facility] Non HDL Chol. (LDL+VLDL) 126 (<160) MG/DL [facility] Comment: Testing performed or reported by [facility], a Service of [facility], [address] [place] [id number] José Deluna MD, Research Technician [facility]# [id number] Blood Venous blood specimen / Unknown 07/21/2023 9:08 AM EDT 07/21/2023 9:11 AM EDT Dary Herrera LAB BLOOD ORDERABLES Final Res ult Performing Organization Address [facility]/ZIP Co de Phone Number [facility] [address] [place] [address] * -Hepatitis C Antibody Test (08/25/2021 3:21 PM EST) ANTI-HEPATITIS C NEGATIVE (NEG) [facility] Comment: Reference range: Negative This test was performed on the [employer] immunoassay system. 08/25/2021 3:21 PM EST Deandre Delatorre NP HISTORICAL/NON ORDERABLE LAB S Final Result Performing Organization Address [facility] de Phone Number [facility] [address] * -HIV AB-AG 4TH GENERATION (08/25/2021 3:21 PM EST) RESULT 4TH GEN HIV AB-AG NEGATIVE (NEG) [facility] Comment: Negative for antibodies to HIV 1 and HIV 2 and P24 antigen. Reference range: Negative Additional note: Written patient authorization is required for each separate release of this test result. This test was performed on the [employer] immunoassay system. 08/25/2021 3:21 PM EST Deandre Delatorre NP LAB BLOOD ORDERABLES Final R esult Performing Organization Address [facility] de Phone Number [facility] [address] from Last 3 Months or Most Recently Relevant to Health Maintenance Insurance [facility] C3 Care Teams Manager Leasing Relationship Specialty Start Date End Date Dary Herrera DO [address] [place] [id number] PCP - General Family Medicine 07/21/23 Lana Varghese Community Health Worker Community Health Worker 08/03/23
--- OUTSIDE RECORDS SUMMARY | 2025-01-10 09:07 | XMS_ITS | Encounter Summary ---
Author Organization [employer] Address [address] [place] [address] Care Team Providers Care Marine Structural Designer Name Role Phone Dary Herrera DO Primary Care Provider [phone] Lana Varghese Unavailable Unavailable Encounter Details Date Type Department Care Team (Late st Contact Info) Description 12/30/2024 Orders Only [facility] Information Management [address] [place] [address] Dary Herrera DO [address] [place] [address] Social History Tobacco Use Types Packs/Day Years [...] on file documented as of this encounter Plan of Treatment Upcoming Encounters Date Type Department Care Team (Late st Contact Info) Description 02/18/2025 1:45 PM EDT Office Visit [facility] MEDICAL [address] [place] [id number] Dary Herrera DO [address] [place] [address] documented as of this encounter Procedures Procedure Name Priority Date/Time Associated Diagnosis Comments XR LUMBAR SPINE 2-3 VIEWS Routine 2024 1:17 PM EDT COMPREHENSIVE METABOLIC PANEL Routine 12/17/2024 1:19 PM EDT documented in this encounter Results * XR Lumbar Spine 2-3 Views (12/18/2024 1:17 PM EDT) Anatomical Region Laterality Modality Spine, L-spine Radiographic Clari ging us Dary Herrera DO IMG XR PROCEDURES Final Result * Comprehensive Metabolic Panel (12/17/2024 1:19 PM EDT) Blood Venous blood specimen / Unknown us Dary Herrera DO LAB BLOOD ORDERABLES Final Res ult documented in this encounter Visit Diagnoses Not on filedocumented in this encounter Additional Health Concerns Assessment Noted Time PHQ-9 Depression Total Score: 0 08/14/20 3:30 PM EST documented as of this encounter Care Teams Marine Structural Designer Relationship Specialty Start Date End Date JavierDary DO [address] [place] [address] PCP - General Family Medicine 07/21/23 Lana Varghese Community Health Worker Community Health Worker 08/03/23 documented as of this encounter
--- OUTSIDE RECORDS SUMMARY | 2025-01-10 09:07 | XMS_ITS | Encounter Summary ---
Author Organization [employer] Address [address] [facility] [facility] [address] [place] [address] Care Team Providers Care Mycologist Name Role Phone Dary Herrera DO Primary Care Provider [phone] Lana Varghese Unavailable Unavailable Encounter Details Date Type Department Care Team (Late st Contact Info) Description 10/20/2023 Orders Only [facility] [address] [place] [address] Dary Herrera DO [address] [place] [address] Recurrent low back pain Social History Tobacco [...] PM EDT Office Visit Nakia [facility] [address] [place] [address] Dary Herrera DO [address] [place] [address] documented as of this encounter Visit Diagnoses Diagnosis Recurrent low back pain Lumbago documented in this encounter Additional Health Concerns Assessment Noted Time PHQ-9 Depression Total Score: 0 08/14/20 3:30 PM EST documented as of this encounter Care Teams Mycologist Relationship Specialty Start Date End Date Dary Herrera DO [address] [place] [address] PCP - General Family Medicine 07/21/23 Lana Varghese Community Health Worker Community Health Worker 08/03/23 documented as of this encounter
--- OUTSIDE RECORDS SUMMARY | 2025-01-10 09:07 | XMS_ITS | Encounter Summary ---
Author Organization [employer] Address [address] [place] [address] 7t [place] [address] Care Team Providers Care Senior Cobol Developer Name Role Phone Dary Herrera Primary Care Provider [phone] Lana Varghese Unavailable Unavailable Reason for Referral * Consultation (Routine) - Pending Review Specialty Diagnoses / Procedures Referred By Estee danielson Referred To Contact Dermatology Diagnoses Atypical nevus of back Renetta Peña FNP-C [address] [place] [address] Phone: tel: fax: [facility] [address] [facility] [place] [address] Phone: tel: fax: Referral ID Status Reason Start Date Expiration Date Visits Requested Visits Authorized [id number] Pending Review Specialty Services Required 01/06/2025 01/06/2026 1 1 Reason for Visit * Reason Comments ER Follow-up Follow up from ER - for back pain Patient is still in pain - radiates down his legs and also in the neck area - the worst pain is in the lower back Encounter Details Date Type Department Care Team (Late st Contact Info) Description 01/06/2025 2:20 PM EDT Office Visit [facility] MEDICAL [address] [place] [id number] Renetta Peña FNP-C [address] [place] [address] Atypical nevus of back (Primary Dx); Bilateral sciatica; Spondylolysis of lumbar region Social History Tobacco Use Types Packs/Day Years [...] on file documented as of this encounter Last Filed Vital Signs Vital Sign Reading Time Taken Comments Blood Pressure 123/81 01/06/2025 2:26 PM EDT Pulse 67 01/06/2025 2:26 PM EDT Temperature 36.6 ??C (97.9 ??F) 01/06/2025 2:26 PM ED T Respiratory Rate 16 01/06/2025 2:26 PM EDT Oxygen Saturation 96% 01/06/2025 2:26 PM EDT Inhaled Oxygen Concentration - - Weight 74.4 kg (164 lb) 01/06/2025 2:26 PM EDT Height - - Body Mass Index 24.94 04/16/2024 6:16 PM EDT documented in this encounter Progress Notes * MIL Muro-Pratik - 01/06/2025 2:20 PM EDT 01/06/25 Dandre Miller 1990 [id number] Dandre Miller is a 34 y.o. male here today for a follow up visit after being seen in the ED for sciatica and spondylosis of the lumbar spine. HPI: HPI Patient is continuing to take the methylcarbinol at night and using heat or cold packs to the area,use muscle rubs and gabapentin with minimal . He was advised go continue doing the pria formis stretches. Patient has been seen several times at the ED for back pain. He was diagnosed with spondylosis of the lumbar spine. MEDICATIONS: Current Outpatient Medications: albuterol (ProAir HFA) 108 (90 Base) MCG/ACT inhaler, Inhale 2 puffs every 4 (four) hours if neededfor wheezing or shortness of breath., Disp: 8.5 g, Rfl: 0 aluminum-magnesium hydroxide-simethicone (Maalox MAX) 400-400-40 MG/5ML suspension, Take 20 mL by mouth every 6 (six) hours if needed for heartburn. Do not exceed 3 doses (60 mL) in 24 hours., Disp: , Rfl: celecoxib (CeleBREX) 100 MG capsule, Take 1 tablet (100 mg) by mouth once daily for 14 days, then take 1 tablet (100 mg) by mouth twice daily., Disp: 60 capsule, Rfl: 5 clindamycin (Cleocin) 300 MG capsule, TAKE 1 CAPSULE BY MOUTH EVERY 8 HOURS X7 DAYS, Disp: , Rfl: diphenhydrAMINE (BENADryl) 25 MG tablet, Take 1 tablet (25 mg) by mouth every 4 (four) hours if needed (allergic reaction)., Disp: 30 tablet, Rfl: 0 Fluticasone Furoate-Vilanterol (Breo Ellipta) 100-25 MCG/ACT aerosol powder , Inhale 1 puff Once per day., Disp: 1 each, Rfl: 11 gabapentin (Neurontin) 300 MG capsule, Take 2 capsules (600 mg) by mouth 3 times daily., Disp: 180 capsule, Rfl: 0 methocarbamol (Robaxin) 500 MG tablet, Take 3 tablets (1,500 mg) by mouth every 8 (eight) hours if needed for muscle spasms., Disp: 135 tablet, Rfl: 0 naproxen sodium (Anaprox) 550 MG tablet, Take 1 tablet by mouth if needed in the morning and at bedtime for pain., Disp: , Rfl: RECENT LABS: No results found for: CBCDIF , BMP , HGBA1C , MICROALB , LDLCHOL , TRIG , B12 REVIEW OF SYSTEMS: Review of Systems Constitutional: Negative. HENT: Negative. Eyes: Negative. Respiratory: Negative. Cardiovascular: Negative. Endocrine: Negative. Genitourinary: Negative. Musculoskeletal: Positive for back pain. Skin: Patient has more than the usual amount of birthmarks. Allergic/Immunologic: Negative. Neurological: Negative. Hematological: Negative. Psychiatric/Behavioral: Negative. All other systems reviewed and are negative. PHYSICAL EXAM: Visit Vitals BP 123/81 (BP Location: Right arm, Patient Position: Sitting, BP Cuff Size: Adult) Pulse 67 Temp 97.9 ??F (36.6 ??C) Resp 16 Physical Exam Constitutional: General: He is not in acute distress. Appearance: Normal appearance. He is normal weight. He is not ill-appearing. HENT: Head: Normocephalic and atraumatic. Cardiovascular: Rate and Rhythm: Normal rate and regular rhythm. Pulses: Normal pulses. Heart sounds: Normal heart sounds. Pulmonary: Effort: Pulmonary effort is normal. Breath sounds: Normal breath sounds. Musculoskeletal: General: Tenderness present. Cervical back: Normal range of motion and neck supple. Comments: Lumbar back pain along wit sciatica. Skin: General: Skin is warm and dry. Capillary Refill: Capillary refill takes less than 2 seconds. Comments: Multiple alvarado on back, abdomen, chest and arms. None are obviously suspicious. Neurological: General: No focal deficit present. Mental Status: He is alert and oriented to person, place, and time. Psychiatric: Mood and Affect: Mood normal. Behavior: Behavior normal. Thought Content: Thought content normal. Judgment: Judgment normal. ASSESSMENT AND PLAN: Problem List Items Addressed This Visit None Encounter Diagnoses Name Primary? Atypical nevus of back Yes Bilateral sciatica Spondylolysis of lumbar region No follow-ups on file. Keep your appointment with neurosurgery. Continue doing sciatica stretches. Return to the clinic if needed. JOEY Hewitt [facility] [address] [place] [address] documented in this encounter Plan of Treatment Upcoming Encounters Date Type Department Care Team (Late st Contact Info) Description 02/18/2025 1:45 PM EDT Office Visit [facility] MED[facility] [address] [place] [address] Dary Herrera DO [address] [place] [address] Scheduled Referrals Name Type Priority Associated Diagnoses Order Schedule Referral to Dermatology Outpatient Referral Routine Atypical nevus of back Expected: 01/06/2025 (Approximate), Expires: 01/06/2026 documented as of this encounter Visit Diagnoses Diagnosis Atypical nevus of back- Primary Bilateral sciatica Sciatica 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
--- OUTSIDE RECORDS SUMMARY | 2025-01-10 09:07 | XMS_ITS | Encounter Summary ---
Author Organization [employer] Address [address] [facility] 7t [place] [address] Care Team Providers Care Director Motion Picture Name Role Phone Dary Herrera DO Primary Care Provider [phone] Lana Varghese Unavailable Unavailable Reason for Visit * Reason Comments Med Change Request Encounter Details Date Type Department Care Team (Late st Contact Info) Description 08/14/2023 Varghese Yee [facility] [address] [place] [address] Dary Herrera DO [address] [place] [address] Social History Tobacco Use Types Packs/Day Years [...] 02/18/2025 1:45 PM EDT Office Visit Nakia [facility] [address] [place] [address] Dary Herrera DO [address] [place] [address] documented as of this encounter Visit Diagnoses Not on filedocumented in this encounter Additional Health Concerns Assessment Noted Time PHQ-9 Depression Total Score: 0 08/14/20 23 3:30 PM EST documented as of this encounter Care Teams Director Motion Picture Relationship Specialty Start Date End Date Dary Herrera DO [address] [place] [address] PCP - General Family Medicine 07/21/23 Lana Varghese Community Health Worker Community Health Worker 08/03/23 documented as of this encounter
--- OUTSIDE RECORDS SUMMARY | 2025-01-10 09:07 | XMS_ITS | Encounter Summary ---
Author Organization [employer] Address [address] [place] [address] Care Team Providers Care Boring Machine Operator Name Role Phone Dary Herrera DO Primary Care Provider [phone] Lana Varghese Unavailable Unavailable Encounter Details Date Type Department Care Team (Latest Contact Info) Description 01/06/2025 Travel Social History Tobacco Use Types Packs/Day Years [...] 02/18/2025 1:45 PM EDT Office Visit Nakia [facility] [address] [place] [address] Dary Herrera DO [address] [place] [address] documented as of this encounter Visit Diagnoses Not on filedocumented in this encounter Additional Health Concerns Assessment Noted Time PHQ-9 Depression Total Score: 0 08/14/20 3:30 PM EST documented as of this encounter Care Teams Boring Machine Operator Relationship Specialty Start Date End Date Dary Herrera DO [address] [place] [address] PCP - General Family Medicine 07/21/23 Lana Varghese Community Health Worker Community Health Worker 08/03/23 documented as of this encounter
--- OUTSIDE RECORDS SUMMARY | 2025-01-10 09:07 | XMS_ITS | Encounter Summary ---
Author Organization [employer] Address [address] [facility] 7t [place] [address] Care Team Providers Care Flame Cutting Machine Operator Name Role Phone Dary Herrera DO Primary Care Provider [phone] Lana Varghese Unavailable Unavailable Reason for Visit * Reason Onset Date Comments Med Refill 05/06/2024 Encounter Details Date Type Department Care Team (Late st Contact Info) Description 05/06/2024 Refill [place] [facility] [address] [place] [address] Dary Herrera DO [address] [place] [address] Recurrent low back pain Social History Tobacco [...] encounter Miscellaneous Notes * Telephone Encounter - Sarah Grigsby, A - 05/06/2024 12:32 PM EDT [facility] Last fill Date:04/30/24 Last OV:7/30/24 Next OV:N/A Last UTOX:02/06/24 CSA Date:09/25/23 DNF Date:05/07/24 documented in this encounter Plan of Treatment Upcoming Encounters Date Type Department Care Team (Late st Contact Info) Description 02/18/2025 1:45 PM EDT Office Visit [facility] [address] [place] [address] Dary Herrera DO [address] [place] [address] documented as of this encounter Visit Diagnoses Diagnosis Recurrent low back pain Lumbago documented in this encounter Additional Health Concerns Assessment Noted Time PHQ-9 Depression Total Score: 0 08/14/20 23 3:30 PM EST documented as of this encounter Care Teams Flame Cutting Machine Operator Relationship Specialty Start Date End Date Dary Herrera DO [address] [place] [address] PCP - General Family Medicine 07/21/23 Lana Varghese Community Health Worker Community Health Worker 08/03/23 documented as of this encounter
--- OUTSIDE RECORDS SUMMARY | 2025-01-10 09:07 | XMS_ITS | Encounter Summary ---
Author Organization [employer] Address [address] [facility] 7t [place] [address] Care Team Providers Care Chuck Boner Name Role Phone Dary Herrera DO Primary Care Provider [phone] Lana Varghese Unavailable Unavailable Reason for Visit * Reason Onset Date Comments Med Refill 04/08/2024 Encounter Details Date Type Department Care Team (Late st Contact Info) Description 04/08/2024 Refill [place] [facility] [address] [place] [address] Dary Herrera DO [address] [place] [address] Recurrent low back pain Social History Tobacco [...] 02/18/2025 1:45 PM EDT Office Visit Nakia [facility] [address] [place] [address] Dary Herrera DO [address] [place] [address] documented as of this encounter Visit Diagnoses Diagnosis Recurrent low back pain Lumbago documented in this encounter Additional Health Concerns Assessment Noted Time PHQ-9 Depression Total Score: 0 08/14/20 3:30 PM EST documented as of this encounter Care Teams Chuck Boner Relationship Specialty Start Date End Date Dary Herrera DO [address] [place] [address] PCP - General Family Medicine 07/21/23 Lana Varghese Community Health Worker Community Health Worker 08/03/23 documented as of this encounter
--- OUTSIDE RECORDS SUMMARY | 2025-01-10 09:07 | XMS_ITS | Encounter Summary ---
Author Organization [employer] Address [address] [facility] 7t [place] [address] Care Team Providers Care Parts Chaser Name Role Phone Dary Herrera DO Primary Care Provider [phone] Lana Varghese Unavailable Unavailable Reason for Visit * Reason Onset Date Comments Med Refill 04/15/2024 Encounter Details Date Type Department Care Team (Late st Contact Info) Description 04/15/[address] [facility] MEDICAL [address] [place] [address] Dary Herrera DO [address] [place] [address] Med Refill Social History Tobacco Use Types Packs/Day Years [...] Miscellaneous Notes * Telephone Encounter - Dary HerreraDO - 04/16/2024 1:31 PM EDT New Medications Ordered This Visit Medications oxyCODONE (Roxicodone) 5 MG immediate release tablet Sig: Take 1 tablet (5 mg) by mouth every 8 (eight) hours for 7 days. Dispense: 21 tablet Refill: 0 Weaning protocol - WEEK 7 Weaning by 5 mg every week - next week will have 5 mg BID #14 * Telephone Encounter - BETY Manning - 04/16/2024 9:04 AM EDT [facility] Last fill Date:04/09/24 Last OV:04/09/24 Next OV:N/A Last UTOX:02/06/24 CSA Date:09/25/23 DNF Date:Due Today documented in this encounter Plan of Treatment Upcoming Encounters Date Type Department Care Team (Late st Contact Info) Description 02/18/2025 1:45 PM EDT Office Visit [facility] MEDICAL [address] [place] [address] Dary Herrera DO [address] [place] [address] documented as of this encounter Visit Diagnoses Diagnosis Recurrent low back pain Lumbago documented in this encounter Additional Health Concerns Assessment Noted Time PHQ-9 Depression Total Score: 0 08/14/20 3:30 PM EST documented as of this encounter Care Teams Parts Chaser Relationship Specialty Start Date End Date Dary Herrera DO [address] [place] [address] PCP - General Family Medicine 07/21/23 Lana Varghese Community Health Worker Community Health Worker 08/03/23 documented as of this encounter
--- OUTSIDE RECORDS SUMMARY | 2025-01-10 09:08 | XMS_ITS | Encounter Summary ---
Author Organization [employer] Address [address] [facility] [address] 7t [place] [address] Care Team Providers Care Web Site Administrator Name Role Phone Dary Herrera DO Primary Care Provider [phone] Lana Varghese Unavailable Unavailable Encounter Details Date Type Department Care Team (Late st Contact Info) Description 11/09/2023 Orders Only [facility] Information Management [address] [place] [address] Dary Herrera DO [address] [place] [address] Social History Tobacco Use Types Packs/Day Years [...] 02/18/2025 1:45 PM EDT Office Visit [facility] MED[facility] [address] [place] [address] Dary Herrera DO [address] [place] [address] documented as of this encounter Procedures Procedure Name Priority Date/Time Associated Diagnosis Comments XR CHEST 2 VIEWS Routine 11/07/2023 7:53 AM EST ECG 12-LEAD Routine 11/07/2023 7:52 AM EST documented in this encounter Results * XR Chest 2 Views (11/07/2023 7:53 AM EST) Anatomical Region Laterality Modality Chest Radiographic Clari ging us Dary Herrera DO IMG XR PROCEDURES Final Result * ECG 12 lead (11/07/2023 7:52 AM EST) us Dary Herrera DO ECG ORDERABLES Final Result documented in this encounter Visit Diagnoses Not on filedocumented in this encounter Additional Health Concerns Assessment Noted Time PHQ-9 Depression Total Score: 0 08/14/20 23 3:30 PM EST documented as of this encounter Care Teams Web Site Administrator Relationship Specialty Start Date End Date Dary Herrera DO [address] [place] [address] PCP - General Family Medicine 07/21/23 Lana Varghese Community Health Worker Community Health Worker 08/03/23 documented as of this encounter
--- OUTSIDE RECORDS SUMMARY | 2025-01-10 09:08 | XMS_ITS | Encounter Summary ---
Author Organization [employer] Address 75 [facility] 7t [place] [address] Care Team Providers Care Advertising Internship Name Role Phone Dary Herrera DO Primary Care Provider [phone] Lana Varghese Unavailable Unavailable Reason for Referral * Consultation (Routine) - Authorized Specialty Diagnoses / Procedures Referred By Contac t Referred To Contact Pain Medicine Diagnoses Recurrent low back pain Spondylolysis of lumbar region Lumbar pars defect Dary Herrera DO [address] [place] [address] Phone: tel: fax: [facility], [address]ott [address] [place] [address] Phone: tel: fax: Referral ID Status Reason Start Date Expiration Date Visits Requested Visits Authorized [id number] Authorized Specialty Services Required 02/01/2024 01/31/2025 1 1 Encounter Details Date Type Department Care Team (Late st Contact Info) Description 02/01/2024 Orders Only [facility] [address] [place] [address] Dary Herrera DO [address] [place] [address] Recurrent low back pain (Primary Dx); Spondylolysis of lumbar region L5; Lumbar pars defect; oysterman use of drug; Abnormal drug screen Social History Tobacco Use Types Packs/Day Years [...] Description 02/18/2025 1:45 PM EDT Office Visit [facility] [address] [place], [place] [id number] Dary Herrera DO [address] [place] [address] Scheduled Referrals Name Type Priority Associated Diagnoses Orde r Schedule Referral to Pain Medicine Outpatient Referral Routine Recurrent low back pain Spondylolysis of lumbar region L5 Lumbar pars defect Expected: 02/01/2024 (Approximate), Expires: 01/31/2025 documented as of this encounter Procedures Procedure Name Priority Date/Time Associated Diagnosis Comments TOXASSURE (R) SELECT 13 (PRESCRIPTION DRUG MONITORING) Routine 02/06/2024 4:45 PM EDT Abnormal drug screen documented in this encounter Results * TOXASSURE (R) SELECT 13 (PRESCRIPTION DRUG MONITORING) (02/06/2024 4:45 PM EDT) Summary Report FINAL [facility] 1 Comment: TOXASSURE SELECT 13 (MW) Test ? Result ? Flag ? Units Drug Present ??Benzoylecgonine ?91 ?ng/mg creat ?? Benzoylecgonine is a metabolite of cocaine; its presence ?? indicates use of this drug. ??Source is most commonly illicit, but ?? cocaine is present in some topical anesthetic solutions. ??Carboxy-THC ?7 ? ng/mg creat ?? Carboxy-THC is a metabolite of tetrahydrocannabinol (THC). Source ?? of THC is most commonly herbal marijuana or marijuana-based ?? products, but THC is also present in a scheduled prescription ?? medication. Trace amounts of THC can be present in hemp and ?? cannabidiol (CBD) products. This test is not intended to ?? distinguish between xpexx-1-jzkadvuoxrxdjbpgahef, the predominant ?? form of THC in most herbal or marijuana-based products, and ?? knnva-4-waophdwrcaemfmtdrjpe. ??Hydromorphone ?43 ?ng/mg creat ??Norhydrocodone ? 41 ?ng/mg creat ?? Hydromorphone and norhydrocodone are expected metabolites of ?? hydrocodone. Sources of hydrocodone are scheduled prescription ?? medications. ??Hydromorphone is also available as a scheduled ?? prescription medication. ?? Interpret results with caution. ??Trace amounts of hydrocodone ?? and/or hydrocodone metabolites in the presence of large amounts ?? of oxycodone may be due to impurities present in the dosage form. ??Oxycodone ?>2933 ? ng/mg creat ??Oxymorphone ?2202 ?ng/mg creat ??Noroxycodone ? >2933 ? ng/mg creat ??Noroxymorphone ? 2409 ?ng/mg creat ?? Sources of oxycodone are scheduled prescription medications. ?? Oxymorphone, noroxycodone, and noroxymorphone are expected ?? metabolites of oxycodone. Oxymorphone is also available as a ?? scheduled prescription medication. Test ?Result ?Flag ?? Units ?Ref Range ??Creatinine ?341 ?mg/dL ?>=20 Declared Medications: Medication list was not provided. For clinical consultation, please call . 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
--- OUTSIDE RECORDS SUMMARY | 2025-01-10 09:08 | XMS_ITS | Encounter Summary ---
Author Organization [employer] Address [address] [facility] [address] 7[address] [place] [address] Care Team Providers Care Information Coordinator Name Role Phone Dary Herrera DO Primary Care Provider [phone] Lana Varghese Unavailable Unavailable Encounter Details Date Type Department Care Team (Late st Contact Info) Description 11/20/2023 Orders Only [facility] MED[facility] [address] [place] [address] Dary Herrera DO [address] [place] [address] Restless leg; Paresthesia and pain of both upper extremities Social History Tobacco Use Types Packs/Day Years [...] 02/18/2025 1:45 PM EDT Office Visit [facility] [address] [place] [address] Dayr Herrera DO [address] [place] [address] documented as of this encounter Procedures Procedure Name Priority Date/Time Associated Diagnosis Comments NERVE CONDUCTION TEST Routine 11/15/2023 Restless leg Paresthesia and pain of both upper extremities documented in this encounter Results * Nerve conduction test (11/15/2023) Dary Herrera DO NEUROLOGY ORDERABLES Final Res ult documented in this encounter Visit Diagnoses Diagnosis Restless leg Restless legs syndrome (RLS) Paresthesia and pain of both upper extremities documented in this encounter Additional Health Concerns Assessment Noted Time PHQ-9 Depression Total Score: 0 08/14/20 3:30 PM EST documented as of this encounter Care Teams Information Coordinator Relationship Specialty Start Date End Date Dary Herrera DO [address] [place] [address] PCP - General Family Medicine 07/21/23 Lana Varghese Community Health Worker Community Health Worker 08/03/23 documented as of this encounter
--- OUTSIDE RECORDS SUMMARY | 2025-01-10 09:08 | XMS_ITS | Encounter Summary ---
Author Organization [employer] Address [address] [facility] [address] 7t [place] [address] Care Team Providers Care Sports Physician Name Role Phone Dary Herrera DO Primary Care Provider [phone] Lana Varghese Unavailable Unavailable Reason for Visit * Reason Onset Date Comments CP, multiple ED visits. also RF 02/27/2024 Encounter Details Date Type Department Care Team (Late st Contact Info) Description 02/27/2024 Telephone [facility] MED[facility] [address] [place] [address] Brittnee Gonzales RN CP, multiple ED visits. also RF Social History Tobacco Use Types Packs/Day Years [...] encounter Miscellaneous Notes * Telephone Encounter - Brittnee Gonzales RN - 02/27/2024 11:24 AM EDT Pt reports 3 ED visits over last 2 weeks for substernal CP and SOB. Reports being told that pain may be due to arthritis. Describes CP as chronic and severe, 6/10 at rest and 10/10 with certain movements. 10/10 pain accompanied by SOB which persists, though lessens, at rest. Denies radiating pain to arms, neck, back; diaphoresis, nausea, dizziness or lightheadedness. Pain does improve with rest. Pt speaking fluidly without obvious sx of SOB, ie, pauses. Reports [facility] ED week of February 11, [place] ED 02/21 or 02/22 and [facility] ED again 02/23. Says EKGs have showed something but was described to him as not bad. Reports 3 neg cxrs. Pt cannot state if he had labs drawn. Said no one told him anything about [facility] labs. Pt states on 02/23 pt passed out at ED and was brought in by wheelchair. Was not seen immediately. Waited 4-5 hours and pain had subsided and eloped. Made first available OV with covering provider CM at [facility]. ED precautions discussed for pain that does not improve with rest, radiating pain, diaphoresis, SOB that does not improve with rest, pain accompanied by nausea. Note from [facility] February 22 in care everywhere. Sending TE to covering PCP FYI and to medical records to get notes, labs, cxr results, EKGs, from [facility] for week of February 11 and February 23. documented in this encounter Plan of Treatment Upcoming Encounters Date Type Department Care Team (Late st Contact Info) Description 02/18/2025 1:45 PM EDT Office Visit [facility]1] MEDICAL [address] [place] [address] Dary Herrera DO [address] [place] [address] documented as of this encounter Visit Diagnoses Not on filedocumented in this encounter Additional Health Concerns Assessment Noted Time PHQ-9 Depression Total Score: 0 08/14/20 3:30 PM EST documented as of this encounter Care Teams Sports Physician Relationship Specialty Start Date End Date Dary Herrera DO [address] [place] [address] PCP - General Family Medicine 07/21/23 Lana Varghese Community Health Worker Community Health Worker 08/03/23 documented as of this encounter
--- OUTSIDE RECORDS SUMMARY | 2025-01-10 09:08 | XMS_ITS | Encounter Summary ---
Author Organization [employer] Address [address] [facility] [address] 7t [place] [address] Care Team Providers Care Clinical Documentation Specialist Name Role Phone Dary Herrera Primary Care Provider [phone] Lana Varghese Unavailable Unavailable Encounter Details Date Type Department Care Team (Late st Contact Info) Description 02/19/2024 Orders Only [facility] MEDICAL [address] [place] [address] ProviderJessica MD Social History Tobacco Use Types Packs/Day Years [...] 02/18/2025 1:45 PM EDT Office Visit [facility] MED[facility] [address] [place] [address] Dary Herrera DO [address] [place] [address] documented as of this encounter Procedures Procedure Name Priority Date/Time Associated Diagnosis Comments TOXASSURE (R) SELECT 13 (PRESCRIPTION DRUG MONITORING) Routine 02/06/2024 5:57 PM EDT documented in this encounter Results * TOXASSURE (R) SELECT 13 (PRESCRIPTION DRUG MONITORING) (02/06/2024 5:57 PM EDT) us Historical Provider LAB BLOOD ORDERABLES Ema l Result documented in this encounter Visit Diagnoses Not on filedocumented in this encounter Additional Health Concerns Assessment Noted Time PHQ-9 Depression Total Score: 0 08/14/20 23 3:30 PM EST documented as of this encounter Care Teams Clinical Documentation Specialist Relationship Specialty Start Date End Date Dary Herrera DO [address] [place] [address] PCP - General Family Medicine 07/21/23 Lana Varghese Community Health Worker Community Health Worker 08/03/23 documented as of this encounter
--- OUTSIDE RECORDS SUMMARY | 2025-01-10 09:08 | XMS_ITS | Encounter Summary ---
Author Organization [employer] Address [address] [facility] [address] 7t [place] [address] Care Team Providers Care Machine Packaging Technician Name Role Phone Dary Herrera DO Primary Care Provider [phone] Lana Varghese Unavailable Unavailable Encounter Details Date Type Department Care Team (Late st Contact Info) Description 02/28/2024 Orders Only [facility] Information Management [address] [place] [address] Dary Herrera DO [address] [place] [address] Social History Tobacco Use Types Packs/Day Years [...] Description 02/18/2025 1:45 PM EDT Office Visit [place] [facility] MED[facility] [address] [place] [address] Dary Herrera, [address] [place] [address] documented as of this encounter Procedures Procedure Name Priority Date/Time Associated Diagnosis Comments XR CHEST 2 VIEWS Routine 02/23/2024 9:28 AM EDT ECG 12-LEAD Routine 02/23/2024 9:27 AM EDT documented in this encounter Results * XR Chest 2 Views (02/23/2024 9:28 AM EDT) Anatomical Region Laterality Modality Chest Radiographic Clari ging us Dary Herrera DO IMG XR PROCEDURES Final Result * ECG 12 lead (02/23/2024 9:27 AM EDT) us Dary Herrera DO ECG ORDERABLES Final Result documented in this encounter Visit Diagnoses Not on filedocumented in this encounter Additional Health Concerns Assessment Noted Time PHQ-9 Depression Total Score: 0 08/14/20 23 3:30 PM EST documented as of this encounter Care Teams Machine Packaging Technician Relationship Specialty Start Date End Date Dary Herrera DO [address] [place] [address] PCP - General Family Medicine 07/21/23 Lana Varghese Community Health Worker Community Health Worker 08/03/23 documented as of this encounter
[2025-01-10 09:09] VITALS: BP 142/92; PULSE 81; O2SAT 97; BMI 25.0
== END 2025-01-10 09:49 | disposition home or self-care (01) ==
LOC: HO.PMC 09:00
PROVIDERS: PCP Family Medicine; Referring Provider Family Medicine; Visit Provider Registered Nurse Emergency
DX: G89.4 Chronic pain syndrome (principal); M47.816 Spondylosis without myelopathy or radiculopathy, lumbar region; M54.50 Low back pain, unspecified; G89.29 Other chronic pain
CPT/HCPCS: 99204

== ENCOUNTER → 2025-01-10 08:59 | Outpatient (BNVA) | payer MEDICAID, SELFPAY | PROVIDERS: PCP Family Medicine; Referring Provider Family Medicine; Visit Provider Registered Nurse Emergency | DX: M47.816 Spondylosis without myelopathy or radiculopathy, lumbar region (principal); M54.50 Low back pain, unspecified; G89.4 Chronic pain syndrome; G89.29 Other chronic pain | CPT/HCPCS: 99212 ==

== ENCOUNTER 2025-01-16 18:17 | Outpatient (REF) | payer MEDICAID, SELFPAY ==
--- NOTE | ~2025-01-16 | MR_ITS ---
EXAMINATION: MR LUMBAR SPINE WITHOUT CONTRAST CLINICAL INFORMATION: Spondylosis without myelopathy or radiculopathy, lumbar region. COMPARISON: None available. TECHNIQUE: MRI of the lumbar spine was obtained using routine sequences without contrast. FINDINGS: Last rib-bearing vertebra labeled T12. There is a likely spondylolysis of the pars interarticularis at L5-S1 resulting in 1 mm anterolisthesis. No bone marrow STIR signal abnormality. The conus medullaris ends at inferior endplate of T12 with normal signal. T12-L1: No disc herniation. No neuroforamina stenosis. L1-2: No disc herniation. No neuroforamina stenosis. L2-3: Broad-based disc bulging. No central spinal canal or neuroforamina stenosis. L3-4: Broad-based disc bulging. Facet joint hypertrophy. No compression upon neural elements. L4-5: Broad-based disc bulging. Facet joint hypertrophy. Bilateral neuroforamina narrowing. No compression upon neural elements. L5-S1: No central spinal canal stenosis. Bilateral neuroforamina narrowing. No prevertebral compartment hematoma, mass or fluid collections. 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 Consider congenital etiology. Mild spondylosis L4-5 and to a lesser extent L3-4.. Electronically signed by: Scott Perales MD 01/17/2025 07:51 AM EDT
--- OUTSIDE RECORDS SUMMARY | 2025-01-16 18:27 | XMS_ITS | Encounter Summary ---
Author Organization [employer] Address 75 [facility] 7t [place] [address] Care Team Providers Care Information Management Manager Name Role Phone Dary Herrera DO Primary Care Provider [phone] Lana Varghese Unavailable Unavailable Reason for Visit * Reason Onset Date Comments Med Refill 04/15/2024 Encounter Details Date Type Department Care Team (Late st Contact Info) Description 04/15/2024 Telephone [facility] MEDICAL [address] [place] [address] Dary Herrera DO [address] [place] [address] Med Refill Social History Tobacco Use Types [...] Description 02/18/2025 1:45 PM EDT Office Visit [facility] MEDICAL [address] [place] [address] Dary Herrera DO [address] [place] [address] documented as of this encounter Visit Diagnoses Diagnosis Recurrent low back pain Lumbago documented in this encounter Additional Health Concerns Assessment Noted Time PHQ-9 Depression Total Score: 0 08/14/20 3:30 PM EST documented as of this encounter Care Teams Information Management Manager Relationship Specialty Start Date End Date Dary Herrera DO [address] [place] [address] PCP - General Family Medicine 07/21/23 Lana Varghese Community Health Worker Community Health Worker 08/03/23 documented as of this encounter
--- OUTSIDE RECORDS SUMMARY | 2025-01-16 18:27 | XMS_ITS | Encounter Summary ---
Author Organization [employer] Address [address] [facility] [address] 7[address] [place] [address] Care Team Providers Care Processing Technician Name Role Phone Dary Herrera Primary Care Provider [phone] Lana Varghese Unavailable Unavailable Encounter Details Date Type Department Care Team (Late st Contact Info) Description 02/19/[address] [facility] MEDICAL [address] [place] [address] ProviderJessica MD Social History Tobacco Use Types [...] 02/18/2025 1:45 PM EDT Office Visit [facility] [address] [place] [address] Dary Herrera DO [address] [place] [address] documented as of this encounter Procedures Procedure [...] documented as of this encounter Care Teams Processing Technician Relationship Specialty Start Date End Date Dary Herrera DO [address] [place] [address] PCP - General Family Medicine 07/21/23 Lana Varghese Community Health Worker Community Health Worker 08/03/23 documented as of this encounter
--- OUTSIDE RECORDS SUMMARY | 2025-01-16 18:27 | XMS_ITS | Encounter Summary ---
Author Organization [employer] Address 75 [facility] 7t [place] [address] Care Team Providers Care School Speech Therapist Name Role Phone Dary Herrera DO Primary Care Provider [phone] Lana Varghese Unavailable Unavailable Reason for Referral * Consultation (Routine) - Closed Specialty Diagnoses / Procedures Referred By Contac t Referred To Contact Pain Medicine Diagnoses Recurrent low back pain Spondylolysis of lumbar region Lumbar pars defect Dary Herrera DO [address] [place] [address] Phone: tel: fax: [facility], [address] [place], [place] Phone: tel: fax: Referral ID Status Reason Start Date Expiration Date V isits Requested Visits Authorized [id number] Closed Specialty Services Required 02/01/2024 01/31/2025 1 1 Encounter Details Date Type Department Care Team (Late st Contact Info) Description 02/01/2024 Orders Only [place] [facility] MED[facility] [address] [place] [address] Dary Herrera DO [address] [place] [address] Recurrent low back pain (Primary Dx); Spondylolysis of lumbar region L5; Lumbar pars defect; half-way use of drug; Abnormal drug screen Social [...] your housing situation today? I have yadira daisy 08/14/[address] you li [...] Description 02/18/2025 1:45 PM EDT Office Visit [facility] MEDICAL [address] [place], [place] [phone] Dary Herrera DO [address] [place] [address] documented as of this encounter Procedures Procedure Name Priority Date/Time Associated Diagnosis Comments AMB REFERRAL TO PAIN MEDICINE Routine 01/10/2025 Recurrent low back pain Spondylolysis of lumbar region L5 Lumbar pars defect TOXASSURE (R) SELECT 13 (PRESCRIPTION DRUG MONITORING) Routine 02/06/2024 4:45 PM EDT Abnormal drug screen documented in this encounter Results * Referral to Pain Medicine (01/10/2025) Dary Herrera DO OUTPATIENT REFERRAL ORDERABLES Final Result * TOXASSURE (R) SELECT 13 (PRESCRIPTION DRUG [...] is not intended to ?? distinguish between ascle-3-zxaeycokarpimezhzfaf, the predominant ?? form of THC in most herbal or marijuana-based products, and ?? uzymb-6-lvyedmghdsnlidgyfvuh. ??Hydromorphone ?43 ?ng/mg creat ??Norhydrocodone ? 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
--- OUTSIDE RECORDS SUMMARY | 2025-01-16 18:27 | XMS_ITS | Encounter Summary ---
Author Organization [employer] Address [address] [facility] [address] 7t [place] [address] Care Team Providers Care Cloth Finishing Range Back Tender Name Role Phone Dary Herrera DO Primary Care Provider [phone] Lana Varghese Unavailable Unavailable Encounter Details Date Type Department Care Team (Late st Contact Info) Description 10/20/2023 Orders Only [facility] MEDICAL [address] [place] [address] Dary Herrera DO 73 [place] [address] Recurrent low back pain Social History Tobacco [...] 02/18/2025 1:45 PM EDT Office Visit [facility]ia [facility] [address] [place] [address] Dary Herrera DO 73 [place] [address] documented as of this encounter Visit Diagnoses Diagnosis Recurrent low back pain Lumbago documented in this encounter Additional Health Concerns Assessment Noted Time PHQ-9 Depression Total Score: 0 08/14/20 3:30 PM EST documented as of this encounter Care Teams Cloth Finishing Range Back Tender Relationship Specialty Start Date End Date Dary Herrera DO [address] [place] [address] PCP - General Family Medicine 07/21/23 Lana Varghese Community Health Worker Community Health Worker 08/03/23 documented as of this encounter
--- OUTSIDE RECORDS SUMMARY | 2025-01-16 18:27 | XMS_ITS | Encounter Summary ---
Author Organization [employer] Address [address] [facility] [address] 7t [place] [address] Care Team Providers Care Moderate Needs Teacher Name Role Phone Dary Herrera DO Primary Care Provider [phone] Lana Varghese Unavailable Unavailable Reason for Visit * Reason Onset Date Comments CP, multiple ED visits. also RF 02/27/2024 Encounter Details Date Type Department Care Team (Late st Contact Info) Description 02/27/2024 Telephone Nakia [facility] [address] [place] [address] Brittnee Gonzales RN CP, multiple ED visits. [...] obvious sx of SOB, ie, pauses. Reports [facility] ED week of February 11, [place] ED 02/21 or 02/22 and [facility] ED again 02/23. Says EKGs have showed [...] available OV with covering provider CM at [facility]. ED precautions discussed for pain that does not improve with rest, radiating pain, diaphoresis, SOB that does not improve with rest, pain accompanied by nausea. Note from [facility] February 22 in care everywhere. Sending TE to covering PCP FYI and to medical records to get notes, labs, cxr results, EKGs, from [facility] for week of February 11 and February 23. documented in this encounter Plan of Treatment Upcoming Encounters Date Type Department Care Team (Late st Contact Info) Description 02/18/2025 1:45 PM EDT Office Visit [facility] MED[facility] 73 [place] [address] Dary Herrera DO 73 [place] [address] documented as of this encounter Visit Diagnoses Not on filedocumented in this encounter Additional Health Concerns Assessment Noted Time PHQ-9 Depression Total Score: 0 08/14/20 3:30 PM EST documented as of this encounter Care Teams Moderate Needs Teacher Relationship Specialty Start Date End Date Dary Herrera DO 73 [place] [address] PCP - General Family Medicine 07/21/23 Lana Varghese Community Health Worker Community Health Worker 08/03/23 documented as of this encounter
--- OUTSIDE RECORDS SUMMARY | 2025-01-16 18:27 | XMS_ITS | Encounter Summary ---
Author Organization [employer] Address [address] [facility] [address] 7t [place] [address] Care Team Providers Care Bath Attendant Name Role Phone Dary Herrera DO Primary Care Provider [phone] Lana Varghese Unavailable Unavailable Encounter Details Date Type Department Care Team (Late st Contact Info) Description 12/30/2024 Orders Only [facility] Information Management [address] [place] [address] Dary Herrera DO [address] [place] [address] Social History Tobacco Use Types Packs/Day Years [...] Description 02/18/2025 1:45 PM EDT Office Visit [facility] MEDICAL [address] [place] [address] Dary Herrera DO [address] [place] [address] documented as of this encounter Procedures Procedure [...] documented as of this encounter Care Teams Bath Attendant Relationship Specialty Start Date End Date JavierDary DO [address] [place] [address] PCP - General Family Medicine 07/21/23 Lana Varghese Community Health Worker Community Health Worker 08/03/23 documented as of this encounter
--- OUTSIDE RECORDS SUMMARY | 2025-01-16 18:27 | XMS_ITS | Encounter Summary ---
Author Organization [employer] Address 75 [facility] 7t [place] [address] Care Team Providers Care Delivery Manager Name Role Phone Dary Herrera DO Primary Care Provider [phone] Lana Varghese Unavailable Unavailable Reason for Visit * Reason Comments Med Change Request Encounter Details Date Type Department Care Team (Late st Contact Info) Description 08/14/2023 Varghese Yee [facility] [address] [place] [address] Dary Herrera DO 73 [place] [address] Social History Tobacco Use Types Packs/Day Years [...] 02/18/2025 1:45 PM EDT Office Visit Nakia [facility] 73 [place] [address] Dary Herrera DO 73 [place] [address] documented as of this encounter Visit Diagnoses Not on filedocumented in this encounter Additional Health Concerns Assessment Noted Time PHQ-9 Depression Total Score: 0 08/14/20 23 3:30 PM EST documented as of this encounter Care Teams Delivery Manager Relationship Specialty Start Date End Date Dary Herrera DO [address] [place] [address] PCP - General Family Medicine 07/21/23 Lana Varghese Community Health Worker Community Health Worker 08/03/23 documented as of this encounter
--- OUTSIDE RECORDS SUMMARY | 2025-01-16 18:27 | XMS_ITS | Encounter Summary ---
Author Organization [employer] Address 75 [facility] 7t [place] [address] Care Team Providers Care Classroom Technology Technician Name Role Phone Dary Herrera DO Primary Care Provider [phone] Lana Varghese Unavailable Unavailable Reason for Visit * Reason Onset Date Comments Med Refill 04/08/2024 Encounter Details Date Type Department Care Team (Late st Contact Info) Description 04/08/2024 Refill [facility] [address] [place] [address] Dary Herrera DO 73 [place] [address] Recurrent low back pain Social History Tobacco [...] 02/18/2025 1:45 PM EDT Office Visit Nakia [facility] 73 [place] [address] Dary Herrera DO 73 [place] [address] documented as of this encounter Visit Diagnoses Diagnosis Recurrent low back pain Lumbago documented in this encounter Additional Health Concerns Assessment Noted Time PHQ-9 Depression Total Score: 0 08/14/20 3:30 PM EST documented as of this encounter Care Teams Classroom Technology Technician Relationship Specialty Start Date End Date Dray Herrera DO 73 [place] [address] PCP - General Family Medicine 07/21/23 Lana Varghese Community Health Worker Community Health Worker 08/03/23 documented as of this encounter
--- OUTSIDE RECORDS SUMMARY | 2025-01-16 18:27 | XMS_ITS | Encounter Summary ---
Author Organization [employer] Address 75 [facility] 7t [place] [address] Care Team Providers Care Construction Rep Name Role Phone Dary Herrera DO Primary Care Provider [phone] Lana Varghese Unavailable Unavailable Reason for Visit * Reason Onset Date Comments question about referral 12/18/2024 Encounter Details Date Type Department Care Team (Late st Contact Info) Description 12/18/2024 Telephone [facility] MED[facility] 73 [place] [address] Dary Herrera DO 73 [place] [address] question about referral Social History Tobacco Use [...] for 12/24/2024 at 2:20 PM in the [place] office. * Telephone Encounter - Eufemia Ho - 12/18/2024 4:08 PM EDT Call to patient x 2 left voicemail to call back. Called office to follow up on patient and he is scheduled for 12/24/24 at 2:[address] Platt that patient scheduled with that office today at 12:45 pm. Waiting bonded structures repairer back from patient. * Telephone Encounter - [...] back pocket: Dr. Ron Platt, phone number [phone], fax number [phone],[address] [place] [address]. Patient states he would like a call back with updates, thank you! documented in this encounter Plan of Treatment Upcoming Encounters Date Type Department Care Team (Late st Contact Info) Description 02/18/2025 1:45 PM EDT Office Visit Nakia [facility] [address] [place] [address] Dary Herrera DO 73 [place] [address] documented as of this encounter Visit Diagnoses Not on filedocumented in this encounter Additional Health Concerns Assessment Noted Time PHQ-9 Depression Total Score: 0 08/14/20 3:30 PM EST documented as of this encounter Care Teams Construction Rep Relationship Specialty Start Date End Date Dary Herrera DO 73 [place] [address] PCP - General Family Medicine 07/21/23 Lana Varghese Community Health Worker Community Health Worker 08/03/23 documented as of this encounter
--- OUTSIDE RECORDS SUMMARY | 2025-01-16 18:27 | XMS_ITS | Encounter Summary ---
Author Organization [employer] Address [address] [facility] [address] 7t [place] [address] Care Team Providers Care Instructor Pilot Name Role Phone Dary Herrera DO Primary Care Provider [phone] Lana Varghese Unavailable Unavailable Encounter Details Date Type Department Care Team (Late st Contact Info) Description 11/20/2023 Orders Only [facility] MEDICAL 73 [place] [address] Dary Herrera DO 73 [place] [address] Restless leg; Paresthesia and pain of both [...] 02/18/2025 1:45 PM EDT Office Visit Nakia [facility] [address] [place] [address] Dary Herrera DO [address] [place] [address] documented as of this encounter Procedures Procedure [...] documented as of this encounter Care Teams Instructor Pilot Relationship Specialty Start Date End Date Dary Herrera DO [address] [place] [address] PCP - General Family Medicine 07/21/23 Lana Varghese Community Health Worker Community Health Worker 08/03/23 documented as of this encounter
--- OUTSIDE RECORDS SUMMARY | 2025-01-16 18:27 | XMS_ITS | Clinical Summary ---
Author Organization [employer] Address 75 [facility] 7t [place] [address] Care Team Providers Care National Secretary Name Role Phone Dary Herrera DO Primary Care Provider [phone] Lana Varghese Unavailable Unavailable Allergies Active Allergy [...] a new pair of pj pants from [employer]. He states he did not wash them [...] molar dental extraction by his dentist in [facility] on 10 06 23 presents today requesting [...] but apparently only filled the Tramadol. [place] [employer]WAKE OVERNIGHT MONITOR database referenced and confirmed. Pt agrees to [...] a neurosurgeon on Monday this week in [place] (see HPI, Dandre cannot recall the name of the specialist but states he is at [address] in [place]. He states the neurosurgeon told him he [...] Tondhaval we encouraged Dandre to call the [facility] tomorrow to make that overdue followup visit, [...] pain with radiculopathy. Orthopedics referral entered by PIPE TESTER at last same-day visit, pending. Preliminary X [...] time . Discussed with pt recommendation for computer support specialist exam and also discussed red flag [...] established with PCP JOHN PAUL Bassett at [facility] on schedule tonight for telehealth visit reporting that his therapist Shelia Ortiz at [facility] recommended he ask his PCP for med [...] therapist share with his PCP/chart here at [facility] for future visit. Resolved Problems Problem Noted [...] and ibuprofen 600mg, 2 tabs (1200 mg) u6ypbaz, due to perceived lack of efficacy of [...] Description 01/06/2025 2:20 PM EDT Office Visit [address] [address] Renetta Peña, JOEY Atypical nevus of back (Primary Dx); Bilateral sciatica; Spondylolysis of lumbar region 01/06/2025 Travel 12/30/2024 Orders Only [facility] [address] [place] [address] Dary Herrera DO 12/30/[address] [address] Dary Herrera, hospital discharge, obtain hospital records 12/30/[address] [address] Dary Herrera, Recurrent low back pain 12/19/2024 Telephone [facility] [address] [place] [address] Dary Herrera, DO ER Follow-up 12/18/[address] [address] Dary Herrera DO question about referral 12/18/2024 Telephone [facility] Information Management [address] [place] [address] Dary Herrera DO 12/17/[address] [place] [address] Dary Herrera DO Results 12/12/2024 11:30 AM EDT Clinical Support [address] [place] [address] Tammy Dorado RN technician terminal and repeater use of drug 12/12/2024 Travel 12/11/[address] [place] [address] Dary Herrera DO FYI 11/29/2024 Population Health Risk Score Community [facility] ([facility] Department [address] [place] [phone] Provider, Population Health Generic 11/27/[address] [address] Dary Herrera DO Recurrent low back pain 11/22/2024 Telephone [facility] [address] [place] [address] Dary Herrera DO 10/28/[address] [address] Dary Herrera DO Recurrent low back pain (Primary Dx) 10/25/2024 9:40 AM EST Telemedicine [address] [address] Renetta Peña FNP-Pratik COVID-19 (Primary Dx); Shortness of breath 10/25/[address] [address] Renetta Peña FNP-Pratik COVID-19; Shortness of breath 10/23/2024 Telephone [facility] Information Management [address] [place] [address] Dary Herrera DO ED FU, fall, COVID [...] 1:45 PM EDT Office Visit Nakia [facility] [address] [place] [address] Dheeraj HerreraraDO 73 [place] [address] Health Maintenance Due Date Last Done Comments [...] of lumbar region L5 Lumbar pars defect XR LUMBAR SPINE 2-3 VIEWS Routine 12/18/2024 1:17 PM EDT COMPREHENSIVE METABOLIC PANEL Routine 12/17/2024 1:19 PM EDT COCAINE AND MTB, MS, UR RFX (NON ORDERABLE) Routine 12/12/2024 12:00 AM EDT TOXASSURE?? FLEX 15, URINE Routine 12/12/2024 12:00 AM EDT USP use of drug LIPID PANEL, STANDARD Routine 07/21/2023 9:08 AM EDT Lipid screening ZZZ HISTORICAL HEPATITIS C ANTIBODY TEST Routine 08/25/2021 3:21 PM EST HIV 1/2 ANTIGEN/ANTIBODY, FOURTH GENERATION W/RFL Routine 08/25/2021 3:21 PM EST from Last 3 Months or Most Recently Relevant to Health Maintenance Results * Referral to Pain Medicine (01/10/2025) [facility] DO OUTPATIENT REFERRAL ORDERABLES Final Result * XR Lumbar Spine 2-3 Views (12/18/2024 1:17 PM EDT) Anatomical Region Laterality Modality Spine, L-spine Radiographic Clari ging [facility] DO IMG XR PROCEDURES Final Result * Comprehensive Metabolic Panel (12/17/2024 1:19 PM EDT) Blood Venous blood specimen / Unknown [facility] DO LAB BLOOD ORDERABLES Final Res ult [...] 6:05 PM EDT Performed at: ??01 - [employer] [address] [place] [address] ??[id number] Paper Twister: Livier Streeter, Phone: ??[phone] [facility] LAB URINE ORDERABLES Final Res ult Performing Organization Address [facility] de Phone Number [facility] * Cocaine and Mtb, MS, Ur RFX (12/12/2024 12:00 AM EDT) Pathologist [facility] Cocaine Confirmation, Urine +POSITIVE+ [facility] Cocaine, Urine Not Detected ng/mg creat [facility] 1 Benzoylecgonin e, Urine 324 ng/mg creat [facility] 1 Cocaethylene, Urine Not Detected ng/mg creat [facility] 1 12/12/2024 12/12/2024 Comment:Urine, Random Narrative [facility] 1 - 12/16/2024 6:05 PM EDT Performed at: ??01 - [employer] [address] [place] [address] ??[id number] Paper Twister: Livier Streeter, Phone: ??[phone] Dary Herrera DO HISTORICAL/NON ORDERABLE LABS Final Result Performing Organization Address [facility] Co de Phone Number [facility] * (ABNORMAL) Lipid panel (07/21/2023 9:08 AM EDT) Cholesterol, Total 166 (<200) MG/DL [facility] Triglyceride (mg/dL) in Serum/Plasma 205(H) (<150) MG/DL [facility] HDL Cholesterol 40 (>39) MG/DL [facility] LDL Cholesterol, Calculated 85 (0-130) MG/DL [facility] Non HDL Chol. (LDL+VLDL) 126 (<160) MG/DL [facility] Comment: Testing performed or reported by [facility], a Service of [facility], [address] [place] [address] José Deluna MD, Hat Measurer [facility]# [id number] Blood Venous blood specimen / Unknown 07/21/2023 9:08 AM EDT 07/21/2023 9:11 AM EDT Dary Herrera DO LAB BLOOD ORDERABLES Final Res ult Performing Organization Address [facility] Co de Phone Number [facility] [address] [place] [address] * -Hepatitis C Antibody Test (08/25/2021 3:21 PM EST) ANTI-HEPATITIS C NEGATIVE (NEG) [facility] Comment: Reference range: Negative This test was performed on the [employer] immunoassay system. 08/25/2021 3:21 PM EST Deandre Delatorre NP HISTORICAL/NON ORDERABLE LAB S Final Result Performing Organization Address [facility] Number [facility] [address] * -HIV AB-AG 4TH GENERATION (08/25/2021 3:21 PM EST) RESULT 4TH GEN HIV AB-AG NEGATIVE (NEG) [facility] Comment: Negative for antibodies to HIV 1 and HIV 2 and P24 antigen. Reference range: Negative Additional note: Written patient authorization is required for each separate release of this test result. This test was performed on the [employer] immunoassay system. 08/25/2021 3:21 PM EST Deandre Delatorre NP LAB BLOOD ORDERABLES Final R esult Performing Organization Address [facility] de Phone Number [facility] [address] from Last 3 Months or Most Recently Relevant to Health Maintenance Insurance [facility] C3 Care Teams National Secretary Relationship Specialty Start Date End Date Dary Herrera DO [address] [place] [address] PCP - General Family Medicine 07/21/23 Lana Varghese Community Health Worker Community Health Worker 08/03/23
--- OUTSIDE RECORDS SUMMARY | 2025-01-16 18:27 | XMS_ITS | Encounter Summary ---
Author Organization [employer] Address [address] [facility] [address] 7t [place] [address] Care Team Providers Care Metal Or Wood Blocker Name Role Phone Dary Herrera DO Primary Care Provider [phone] Lana Varghese Unavailable Unavailable Reason for Visit * Reason Onset Date Comments Med Refill 05/06/2024 Encounter Details Date Type Department Care Team (Late st Contact Info) Description 05/06/2024 Refill [place] [facility] MED[facility] [address] [place] [address] Dary Herrera DO [address] [place] [address] Recurrent low back pain Social History Tobacco [...] encounter Miscellaneous Notes * Telephone Encounter - Sraah Grigsby, A - 05/06/2024 12:32 PM EDT [facility] Last fill Date:04/30/24 Last OV:7/30/24 Next OV:N/A Last UTOX:02/06/24 CSA Date:09/25/23 DNF Date:05/07/24 documented in this encounter Plan of Treatment Upcoming Encounters Date Type Department Care Team (Late st Contact Info) Description 02/18/2025 1:45 PM EDT Office Visit [facility] MED[facility] [address] [place] [address] Dary Herrera DO [address] [place] [address] documented as of this encounter Visit Diagnoses Diagnosis Recurrent low back pain Lumbago documented in this encounter Additional Health Concerns Assessment Noted Time PHQ-9 Depression Total Score: 0 08/14/20 23 3:30 PM EST documented as of this encounter Care Teams Metal Or Wood Blocker Relationship Specialty Start Date End Date Dary Herrera DO [address] [place] [address] PCP - General Family Medicine 07/21/23 Lana Varghese Community Health Worker Community Health Worker 08/03/23 documented as of this encounter
--- OUTSIDE RECORDS SUMMARY | 2025-01-16 18:27 | XMS_ITS | Encounter Summary ---
Author Organization [employer] Address [address] [facility] [address] 7t [place] [address] Care Team Providers Care Homeopathic Doctor Name Role Phone Dary Herrera DO Primary Care Provider [phone] Lana Varghese Unavailable Unavailable Encounter Details Date Type Department Care Team (Late st Contact Info) Description 11/09/2023 Orders Only [facility] Information Management [address] [place] [address] Dary Herrera DO [address] [place] [address] Social History Tobacco Use Types Packs/Day Years [...] Nakia [facility] MED[facility] [address] [place] [address] Dary Herrera DO [address] [place] [address] documented as of this encounter Procedures Procedure [...] documented as of this encounter Care Teams Homeopathic Doctor Relationship Specialty Start Date End Date Dary Herrera DO [address] [place] [address] PCP - General Family Medicine 07/21/23 Lana Varghese Community Health Worker Community Health Worker 08/03/23 documented as of this encounter
--- OUTSIDE RECORDS SUMMARY | 2025-01-16 18:27 | XMS_ITS | Encounter Summary ---
Author Organization [employer] Address [address] [facility] [address] 7t [place] [address] Care Team Providers Care Sugar Trucker Name Role Phone Dary Herrera DO Primary Care Provider [phone] Lana Varghese Unavailable Unavailable Encounter Details Date Type Department Care Team (Late st Contact Info) Description 11/08/2023 Orders Only [facility] MEDICAL [address] [place] [address] Dary Herrera DO [address] [place] [address] Social History Tobacco Use Types Packs/Day Years [...] 02/18/2025 1:45 PM EDT Office Visit Nakia [facility] [address] [place] [address] Dary Herrera DO [address] [place] [address] documented as of this encounter Visit Diagnoses Not on filedocumented in this encounter Additional Health Concerns Assessment Noted Time PHQ-9 Depression Total Score: 0 08/14/20 23 3:30 PM EST documented as of this encounter Care Teams Sugar Trucker Relationship Specialty Start Date End Date Dary Herrera DO [address] [place] [address] PCP - General Family Medicine 07/21/23 Lana Varghese Community Health Worker Community Health Worker 08/03/23 documented as of this encounter
--- OUTSIDE RECORDS SUMMARY | 2025-01-16 18:27 | XMS_ITS | Encounter Summary ---
Author Organization [employer] Address [address] [place] [address] Care Team Providers Care Land Surveying Party Chief Name Role Phone Dary Herrera DO Primary Care Provider [phone] Lana Varghese Unavailable Unavailable Encounter Details Date Type Department Care Team (Late st Contact Info) Description 02/28/2024 Orders Only [facility] Information Management [address] [place] [address] Dary Herrera DO [address] [place] [address] Social History Tobacco Use Types Packs/Day Years [...] Description 02/18/2025 1:45 PM EDT Office Visit [facility] [address] [place] [address] Dary Herrera, [address] [place] [address] documented as of this encounter Procedures Procedure [...] documented as of this encounter Care Teams Land Surveying Party Chief Relationship Specialty Start Date End Date Dary Herrera DO [address] [place] [id number] PCP - General Family Medicine 07/21/23 Lana Varghese Community Health Worker Community Health Worker 08/03/23 documented as of this encounter
--- OUTSIDE RECORDS SUMMARY | 2025-01-16 18:27 | XMS_ITS | Encounter Summary ---
Author Organization [employer] Address [address] [facility] [address] [place] [address] Care Team Providers Care Sales Planning Coordinator Name Role Phone Dary Herrera DO Primary Care Provider [phone] Lana Varghese Unavailable Unavailable Reason for Visit * Reason Onset Date Comments Med Refill 10/12/2023 Encounter Details Date Type Department Care Team (Late st Contact Info) Description 10/12/2023 Refill [facility] [address] [place] [address] Dary Herrera DO [address] [place] [address] Recurrent low back pain Social History Tobacco [...] Description 02/18/2025 1:45 PM EDT Office Visit [facility] [address] [place] [address] Dary Herrera DO [address] [place] [address] documented as of this encounter Visit Diagnoses Diagnosis Recurrent low back pain Lumbago documented in this encounter Additional Health Concerns Assessment Noted Time PHQ-9 Depression Total Score: 0 08/14/20 3:30 PM EST documented as of this encounter Care Teams Sales Planning Coordinator Relationship Specialty Start Date End Date Dary Herrera DO [address] [place] [address] PCP - General Family Medicine 07/21/23 Lana Varghese Community Health Worker Community Health Worker 08/03/23 documented as of this encounter
== END 2025-01-16 18:18 | disposition home or self-care (01) ==
LOC: HO.MRI 18:17
PROVIDERS: Visit Provider Registered Nurse Emergency
DX: M47.816 Spondylosis without myelopathy or radiculopathy, lumbar region (principal); G89.4 Chronic pain syndrome; M54.50 Low back pain, unspecified
CPT/HCPCS: 72148

== ENCOUNTER → 2025-01-16 18:30 | Outpatient (BNV) | payer MEDICAID, SELFPAY | PROVIDERS: Visit Provider Radiology Diagnostic Radiology | DX: M47.896 Other spondylosis, lumbar region (principal) | CPT/HCPCS: 72148 ==

== ENCOUNTER 2025-01-29 15:11 | Outpatient (AMB) | payer MEDICAID, SELFPAY ==
[2025-01-29 15:13] VITALS: BP 124/84; PULSE 85; O2SAT 97; BMI 24.3
--- NOTE | 2025-01-29 15:13 | A.OFFVIS_ITS ---
Vital Signs 3 01/29/25 15:13 Height 5 ft 8 in Weight 160 lb BMI 24.3 BP 124/84 Blood Pressure Location Lt brachial Position Sitting Pulse 85 Pulse Oximetry (%) 97 Intake Visit Reasons: MRI Result Allergies Penicillins Allergy (Unknown, Verified 01/29/25 15:16) Anaphylaxis Sulfa (Sulfonamide Antibiotics) Allergy (Unknown, Verified 01/29/25 15:16) Hives Medication List - Last Reconciled 01/29/25 by Lydia Arguello LPN albuterol sulfate 90 mcg/actuation (Ventolin HFA) 2 puffs inhalation Q4H PRN gabapentin 600 mg PO TID lidocaine 5% 1 patch topical DAILY naloxone 4 mg/actuation (Narcan) 4 mg intranasal Q2M PRN HPI Comments Details: The patient is a 34-year-old male presenting with low back pain, review of recent MRI. 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 He suspects the condition might have been exacerbated by previous activities such as skateboarding and snowboarding. His pain is believed to originate from facet joint hypertrophy, consistent with wear and tear from physical activity and possible early degenerative changes. - Onset: Chronic history with recent exacerbations. - Quality: Aching pain, with occasional locking up sensation. - Primary Location: Lower back around L3, L4, L5 vertebral levels. - Worsened by: Bending, twisting, movement and high humidity. - Relieved by: Not specified during the visit. - Affect: No explicit impact on mood or psychological wellbeing mentioned. - Analgesia: Diagnostic facet joint injections proposed; no current medication regime mentioned. - Adverse Effects: None discussed. - Activities of Daily Living: Pain impacts function during movements and particular weather conditions but specifics not discussed further. - Aberrant Drug-Related Behaviors: Not discussed. Prior: The patient is a 34-year-old male presenting with acute exacerbation of chronic lower back pain. He describes his long-term lower back pain originating from pressure fractures sustained during a teenaged skateboarding incident. His pain has varied over time, becoming acutely more severe in the last six months, attributed to a fall on the stairs. The presenting symptoms include pain extending from the lower back throughout the hip and legs leading to weakness and numbness, along with pain radiating upwards into the neck and arms with associated neuromuscular symptoms, creating significant physical limitations and pain upon movement. Various interventions such as muscle relaxants, previous opioid pain medication, prescription medications, NSAIDS, heat, ice all without improvement of his pain. He completed PT approx 6 months ago without improvement, continues with HEP. Underwent injections over 5 years ago that he is not able to detail type or results of the injections. Recent Xray shows lumbar spondylosis. Denies recent MRI. - Pain onset: Initial injury at age 16, worsened in the past six months - Quality and character: Pulsating, tingling, numbness - Location: Lower back, radiating to neck, arms, hands, and legs - Exacerbating factors: Walking, standing, sitting, moving, twisting, lying down - Relieving factors: None stated effective - Interference: Activities of daily living including sitting, standing, laying, chores, dressing, and showering - Affect: Pain impacts daily tasks and causes psychological distress due to physical limitations - Analgesia: Currently on gabapentin (600 mg three times daily) and Methocarbamol 1500mg QID with limited effect on pain relief - Adverse Effects: Gabapentin provides some relief from restless legs, ineffective on overall pain - Activities of Daily Living: Difficulty with basic functions including dressing, showering; reliant on sitting positions to perform daily tasks - Aberrant Behaviors: No signs of misuse noted [facility] Medical History (Updated 01/10/25 @ 09:51 by Wanda Molina APRN, SENIOR INVESTMENT ANALYST) Ureteral stent present Intractable pain Hyperglycemia Chronic lower back pain Social History (Updated 01/10/25 @ 09:12 by Elizabeth Melissa) Tobacco use type: Cigarette Cigarettes Per Day: 15 Review of Systems Const Details: - Musculoskeletal: Reports low back pain; Denies any other joint issues. Physical Exam Vital Signs: Last Vital Signs Pulse 85 01/29/25 15:13 BP 124/84 01/29/25 15:13 Pulse Ox 97 01/29/25 15:13 BMI result Body Mass Index 24.3 Physical exam limited due to patient's intolerance to movement and palpation secondary to reported pain General: awake, alert, oriented. Answers questions appropriately. Skin: warm, dry, intact HEENT: Normocephalic. Hearing intact. Cardiac: External chest normal in appearance. Respiratory: No cough, audible wheezing or stridor. Abdomen: without gross distension. MS: No obvious swelling or deformities. Able to transition from sit to stand unassisted Neurological: Oriented to person, place, time and situation. Thought process intact. No gait abnormalities appreciated. Psychiatric: Appropriate mood and affect. Good judgment and insight. Results Reviewed Results Reviewed: 01/16/25 MR LS FINDINGS: Last rib-bearing vertebra labeled T12. There is a likely spondylolysis of the pars interarticularis at L5-S1 resulting in 1 mm anterolisthesis. No bone marrow STIR signal abnormality. The conus medullaris ends at inferior endplate of T12 with normal signal. T12-L1: No disc herniation. No neuroforamina stenosis. L1-2: No disc herniation. No neuroforamina stenosis. L2-3: Broad-based disc bulging. No central spinal canal or neuroforamina stenosis. L3-4: Broad-based disc bulging. Facet joint hypertrophy. No compression upon neural elements. L4-5: Broad-based disc bulging. Facet joint hypertrophy. Bilateral neuroforamina narrowing. No compression upon neural elements. L5-S1: No central spinal canal stenosis. Bilateral neuroforamina narrowing. No prevertebral compartment hematoma, mass or fluid collections. 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 Consider congenital etiology. Mild spondylosis L4-5 and to a lesser extent L3-4.. 12/18/24 XR LS Assessment & Plan Assessment & Plan (1) Lumbar spondylosis: Code(s): M47.816 - Spondylosis without myelopathy or radiculopathy, lumbar region Category: Medical Plan An initial diagnostic medial branch block injections will be scheduled to confirm facet joints are main pain generator. If successful, this may lead to considering a temporary nerve stimulation device. The patient should undergo x- rays with bending views to assess potential exacerbation of spinal misalignment during movement. Massage therapy support as adjunctive management is contingent on insurance validation. Continued follow-up and reassessment will hinge on diagnostic outcomes and patient-reported relief. I discussed with the patient the probable cause of his low back pain, highlighting facet joint hypertrophy as the primary contributor. Diagnostic medial branch blocks were proposed as an initial diagnostic intervention. I explained that if these injections prove effective, we might consider a temporary nerve stimulation device as a further line of managing his pain. Additionally, we reviewed the importance of obtaining x-rays with bending views to evaluate spinal alignment during dynamic motion. I instructed him to verify insurance coverage for massage therapy, emphasizing its potential benefit in managing his musculoskeletal pain. The possibility and necessity of follow-up appointments were also addressed based on the outcomes of the diagnostic injections and any additional treatment plans. Will schedule for fluoroscopy guided bilateral diagnostic L3-L4 DR L5 medial branch blocks with local anesthetic Patient was informed and verbally consented to the use of an ambient scribe for clinic note documentation during this visit. Orders: Orders 2 XR lumbar spine 6V w bending Today M47.816 - Spondylosis without myelopathy or radiculopathy, lumbar region Patient Instructions: - Get the ordered x-rays with bending views as soon as possible. - Keep a detailed pain diary following your diagnostic injection, focusing on lower back pain. - Check with your insurance to see if massage therapy is covered. - Let me know if a referral is needed once a massage provider is identified. - Return for follow-up to discuss diagnostic injection results and further management plans. Coding Level of Care Code Est Pt Level 3 (14217) Complex EM visit Add On G2211 Diagnoses Lumbar spondylosis M47.816
--- OUTSIDE RECORDS SUMMARY | 2025-01-29 15:16 | XMS_ITS | Encounter Summary ---
Author Organization [employer] Address [address] [place] [address] Care Team Providers Care Interactive Marketing Strategist Name Role Phone Dary Herrera DO Primary Care Provider [phone] Lana Varghese Unavailable Unavailable Encounter Details Date Type Department Care Team (Late st Contact Info) Description 11/09/2023 Orders Only [facility] Information Management [address] [place] [address] Dary Herrera DO [address] [place] [address] Social History Tobacco Use Types Packs/Day Years [...] the past 12 months, has t he SPIRIT Navigation, gas, oil or water [employer] threatened to shut off services in your [...] 02/18/2025 1:45 PM EDT Office Visit [facility] [address] [place] [address] Dary Herrera DO [address] [place] [address] documented as of this encounter Procedures Procedure [...] documented as of this encounter Care Teams Interactive Marketing Strategist Relationship Specialty Start Date End Date Dary Herrera DO [address] [place] [id number] PCP - General Family Medicine 07/21/23 Lana Varghese Community Health Worker Community Health Worker 08/03/23 documented as of this encounter
--- OUTSIDE RECORDS SUMMARY | 2025-01-29 15:16 | XMS_ITS | Encounter Summary ---
Author Organization [employer] Address [address] [place] [address] Care Team Providers Care Travel Ot Name Role Phone Dary Herrera DO Primary Care Provider [phone] Lana Varghese Unavailable Unavailable Reason for Visit * Reason Onset Date Comments question about referral 12/18/2024 Encounter Details Date Type Department Care Team (Late st Contact Info) Description 12/18/[address] [facility] [address] [place] [address] Dary Herrera DO [address] [place] [address] question about referral Social History Tobacco Use Types Packs/Day Years Used Date Smoking Tobacco: Every Day Cigarettes 1 1.4 Started: 2023 Passive Smoke Exposure: Current Smokeless [...] encounter Miscellaneous Notes * Telephone Encounter - Eufemia Ho - 12/18/2024 4:27 PM EDT Confirmed with patient he is rescheduled for 12/24/2024 at 2:20 PM in the [place] office. * Telephone Encounter - Eufemia Ho - 12/18/2024 4:08 PM EDT Call to patient x 2 left voicemail to call back. Called office to follow up on patient and he is scheduled for 12/24/24 at 2:[address] Platt that patient scheduled with that office today at 12:45 pm. Waiting contract officer back from patient. * Telephone Encounter - Linda Bsuh - 12/18/2024 3:47 PM EDT Patient called [...] back pocket: Dr. Ron Platt, phone number [phone], fax number [phone],[address] [place], [place]. Patient states he would like a call back with updates, thank you! documented in this encounter Plan of Treatment Upcoming Encounters Date Type Department Care Team (Late st Contact Info) Description 02/18/2025 1:45 PM EDT Office Visit [facility] [address] [place] [address] Dary Herrera DO [address] [place] [address] documented as of this encounter Visit Diagnoses Not on filedocumented in this encounter Additional Health Concerns Assessment Noted Time PHQ-9 Depression Total Score: 0 08/14/20 3:30 PM EST documented as of this encounter Care Teams Travel Ot Relationship Specialty Start Date End Date Dary Herrera DO [address] [place] [address] PCP - General Family Medicine 07/21/23 Lana Varghese Community Health Worker Community Health Worker 08/03/23 documented as of this encounter
--- OUTSIDE RECORDS SUMMARY | 2025-01-29 15:16 | XMS_ITS | Clinical Summary ---
Author Organization [employer] Address [address] 7[address] [place] [address] Care Team Providers Care Peanut Sorter Name Role Phone Dary Herrera DO Primary Care Provider [phone] Lana Varghese Unavailable Unavailable Allergies Active Allergy [...] 1 puff Once per day. 1 each 10/25/19 25 Active lidocaine (Lidoderm) 5 % patchIndication s:Atypical nevus of back Apply 1 patch topically Once per day. Apply to painful area 12 hours per day, remove for 12 hours. 30 patch 2 01/07/20 25 025 Active methocarbamol (Robaxin) 500 MG tabletIndicatio ns:Recurrent low back pain TAKE 3 TABLETS BY MOUTH EVERY 8 HOURS NEEDED FOR MUSCLE SPASM 135 tablet 01/25/20 25 Active gabapentin (Neurontin) 300 MG capsuleIndicati ons:Recurrent low back pain TAKE 2 CAPSULES BY MOUTH 3 TIMES DAILY. 180 capsule 01/28/20 25 Active aluminum-magnes ium hydroxide-simet hicone (Maalox MAX) [...] DAYS 10/13/19 25 025 Discontinued( erapy completed) methocarbamol (Robaxin) 500 MG tabletIndicatio ns:Recurrent low back pain Take 3 tablets (1,500 mg) by mouth every 8 (eight) hours if needed for muscle spasms. 135 tablet 12/23/19 25 025 Discontinued gabapentin (Neurontin) 300 MG capsuleIndicati ons:Recurrent low back pain Take 2 capsules (600 mg) by mouth 3 times daily. 180 capsule 12/31/19 25 025 Discontinued Active Problems Problem Noted Date Diagnosed Date [...] taking medications exactly as prescribed. Notes the celebrex is helping some with his chronic back [...] a new pair of pj pants from [employer]. He states he did not wash them [...] molar dental extraction by his dentist in [facility] Leslie Gamino [facility] on 10 06 23 presents today requesting [...] but apparently only filled the Tramadol. [place] DATA SECURITY COORDINATOR database referenced and confirmed. Pt agrees to [...] a neurosurgeon on Monday this week in [place] (see HPI, Dandre cannot recall the name of the specialist but states he is at [address] in [place]. He states the neurosurgeon told him he [...] to f/up with her in one month. Tonight we encouraged Dandre to call the [facility] tomorrow to make that overdue followup [...] pain with radiculopathy. Orthopedics referral entered by SALES PRODUCER at last same-day visit, pending. Preliminary X [...] time . Discussed with pt recommendation for affirmative action specialist exam and also discussed red flag [...] established with PCP JOHN PAUL Bassett at [facility] on schedule tonight for telehealth visit reporting that his therapist Shelia Ortiz at [facility] recommended he ask his PCP [...] therapist share with his PCP/chart here at [facility] for future visit. Resolved Problems Problem Noted [...] and ibuprofen 600mg, 2 tabs (1200 mg) [id number], due to perceived lack of efficacy of [...] Encounters Date Type Department Care Team Description 01/29/[address] [address] Dary Herrera DO Can not get ahold of patient 01/26/[address] [address] Dary Herrera DO Recurrent low back pain 01/24/[address] [address] Dary Herrera DO Recurrent low back pain 01/06/2025 2:20 PM EDT Office Visit [address] [address] Renetta Peña, MIL-Pratik Atypical nevus of back (Primary Dx); Bilateral sciatica; Spondylolysis of lumbar region 01/06/2025 Travel 12/30/2024 Orders Only [facility] Information Management [address] [place] [address] Dary Herrera DO 12/30/[address] [address] Dary Herrera DO hospital discharge, obtain hospital records 12/30/[address] [place] [address] Dary Herrera DO Recurrent low back pain 12/19/2024 Telephone [facility] Information Management [address] [place] [address] Dary Herrera DO ER Follow-up 12/18/[address] [place] [address] Dary Herrera DO question about referral 12/18/2024 Telephone [facility] Information [facility] [address] [place] [address] Dary Herrera DO 12/17/[address] [place] [address] Dary Herrera DO Results 12/12/2024 11:30 AM EDT Clinical Support [address] [address] Tammy Dorado RN continuous churn buttermaker use of drug 12/12/2024 Travel 12/11/[address] [place] [address] Dary Herrera DO FYI 11/29/2024 Population Health Risk Score [facility] () Department [address] [place] [id number] Provider, Population Health Generic 11/27/[address] [address] Dary Herrera DO Recurrent low back pain 11/22/2024 Telephone [facility] Information Management [address] [place] [address] Dary Herrera DO from Last 3 Months Immunizations Immunization Administration Dates Next Due DTP 07/28/1995, 2,04/01/1991,1990,1990 [...] the past 12 months, has t he [employer] gas, oil or water [employer] threatened to shut off services in your [...] 02/18/2025 1:45 PM EDT Office Visit [facility] [address] [place] [address] Dary Herrera DO [address] [place] [address] Health Maintenance Due Date Last Done Comments Pneumococcal Vaccine: Pediatrics (0 to 5 Years) and At-Risk Patients (6 to 49) Years) (1 of 2 - PCV) 2009 COVID-19 Vaccine (1 - season) 2024 Influenza Vaccine (#1) 2024 [...] patient's age to complete this topic Meningococcal B Vaccine Aged Out No l onger eligible based on patient's age to complete [...] 15, URINE Routine 12/12/2024 12:00 AM EDT senior living use of drug LIPID PANEL, STANDARD Routine 07/21/2023 9:08 AM EDT Lipid screening [facility] HISTORICAL HEPATITIS C ANTIBODY TEST Routine 08/25/2021 3:21 PM EST HIV 1/2 ANTIGEN/ANTIBODY, FOURTH GENERATION W/RFL Routine 08/25/2021 3:21 PM EST from Last 3 Months or Most Recently Relevant to Health Maintenance Results * Referral to Pain Medicine (01/10/2025) [facility] OUTPATIENT REFERRAL ORDERABLES Final Result * XR Lumbar Spine 2-3 Views (12/18/2024 1:17 PM EDT) Anatomical Region Laterality Modality Spine, L-spine Radiographic Clari ging [facility] DO IMG XR PROCEDURES Final Result * Comprehensive Metabolic Panel (12/17/2024 1:19 PM EDT) Blood Venous blood specimen / Unknown [facility] LAB BLOOD ORDERABLES Final Res ult * [...] 6:05 PM EDT Performed at: ??01 - [employer] [address] [place] [address] ??[id number] Sc[employer] Product Owner: Livier Mak PhrMA, Phone: ??[phone] Dary Javier DO LAB URINE ORDERABLES Final Res ult Performing Organization Address [facility] Co de Phone Number [facility] * Cocaine and Mtb, MS, Ur RFX (12/12/2024 12:00 AM EDT) Cocaine Confirmation, Urine +POSITIVE+ [facility] 1 Cocaine, Urine Not Detected ng/mg creat [facility] 1 Benzoylecgonin e, Urine 324 ng/mg creat [facility] 1 Cocaethylene, Urine Not Detected ng/mg creat [facility] 1 12/12/2024 12/12/2024 Comment:Urine, Random Narrative [facility] 1 - 12/16/2024 6:05 PM EDT Performed at: ??01 - [employer] [address] [place] [address] ??[id number] [employer] Product Owner: Livier Streeter, Phone: ??[phone] Dary Herrera DO HISTORICAL/NON ORDERABLE LABS Final Result Performing Organization Address [facility] de Phone Number [facility] * (ABNORMAL) Lipid panel (07/21/2023 9:08 AM EDT) Cholesterol, Total 166 (<200) MG/DL [facility] Triglyceride (mg/dL) in Serum/Plasma 205(H) (<150) MG/DL [facility] HDL Cholesterol 40 (>39) MG/DL [facility] LDL Cholesterol, Calculated 85 (0-130) MG/DL [facility] Non HDL Chol. (LDL+VLDL) 126 (<160) MG/DL [facility] Comment: Testing performed or reported by [facility], a Service of [facility], [address] [place] [address] José Deluna MD, Paint Technician [facility]# [id number] Blood Venous blood specimen / Unknown 07/21/2023 9:08 AM EDT 07/21/2023 9:11 AM EDT Dary Herrera LAB BLOOD ORDERABLES Final Res ult [facility] [address] [place] [address] * -Hepatitis C Antibody Test (08/25/2021 3:21 PM EST) ANTI-HEPATITIS C NEGATIVE (NEG) [facility] Comment: Reference range: Negative This test was performed on the [employer] Lead immunoassay system. 08/25/2021 3:21 PM EST Deandre Delatorre NP HISTORICAL/NON ORDERABLE LAB S Final Result Performing Organization Address [facility] Co de Phone Number [facility] [address] * -HIV AB-AG 4TH GENERATION (08/25/2021 3:21 PM EST) RESULT 4TH GEN HIV AB-AG NEGATIVE (NEG) [facility] Comment: Negative for antibodies to HIV 1 and HIV 2 and P24 antigen. Reference range: Negative Additional note: Written patient authorization is required for each separate release of this test result. This test was performed on the [employer] Lead immunoassay system. 08/25/2021 3:21 PM EST Deandre Delatorre NP LAB BLOOD ORDERABLES Final R esult Performing Organization Address [facility] Co de Phone Number [facility] [address] from Last 3 Months or Most Recently Relevant to Health Maintenance Insurance [facility] C3 Care Teams Peanut Sorter Relationship Specialty Start Date End Date Dary Herrera DO [address] [place] [address] PCP - General Family Medicine 07/21/23 Lana Varghese Community Health Worker Community Health Worker 08/03/23
--- OUTSIDE RECORDS SUMMARY | 2025-01-29 15:16 | XMS_ITS | Encounter Summary ---
Author Organization [employer] Address [address] [place] [address] Care Team Providers Care Toaster Operator Name Role Phone Dary Herrera DO Primary Care Provider [phone] Lana Varghese Unavailable Unavailable Encounter Details Date Type Department Care Team (Late st Contact Info) Description 11/08/2023 Orders Only [facility] MED[facility] [address] [place] [address] Dary Herrera DO [address] [place] [address] Social History Tobacco Use Types Packs/Day Years [...] the past 12 months, has t he [employer], gas, oil or water [employer] threatened to shut off services in your [...] Description 02/18/2025 1:45 PM EDT Office Visit [place] [address] [place] [address] Dary Herrera DO [address] [place] [address] documented as of this encounter Visit Diagnoses Not on filedocumented in this encounter Additional Health Concerns Assessment Noted Time PHQ-9 Depression Total Score: 0 08/14/20 3:30 PM EST documented as of this encounter Care Teams Toaster Operator Relationship Specialty Start Date End Date Dary Herrera DO [address] [place] [address] PCP - General Family Medicine 07/21/23 Lana Varghese Community Health Worker Community Health Worker 08/03/23 documented as of this encounter
--- OUTSIDE RECORDS SUMMARY | 2025-01-29 15:16 | XMS_ITS | Encounter Summary ---
Author Organization [employer] Address [address] 7[address] [place] [address] Care Team Providers Care Ironing Worker Name Role Phone Dary Herrera DO Primary Care Provider Lana Varghese Unavailable Unavailable Reason for Visit * Reason Onset Date Comments Med Refill 10/12/2023 Encounter Details Date Type Department Care Team (Late st Contact Info) Description 10/12/2023 Refill [facility] [address] [place] [address] Dary Herrera DO [address] [place] [address] Recurrent low back pain Social History Tobacco [...] Description 02/18/2025 1:45 PM EDT Office Visit [facility] [address] [place] [address] Dary Herrera DO [address] [place] [address] documented as of this encounter Visit Diagnoses Diagnosis Recurrent low back pain Lumbago documented in this encounter Additional Health Concerns Assessment Noted Time PHQ-9 Depression Total Score: 0 08/14/20 3:30 PM EST documented as of this encounter Care Teams Ironing Worker Relationship Specialty Start Date End Date Dary Herrera DO [address] [place] [address] PCP - General Family Medicine 07/21/23 Lana Varghese Community Health Worker Community Health Worker 08/03/23 documented as of this encounter
--- OUTSIDE RECORDS SUMMARY | 2025-01-29 15:16 | XMS_ITS | Encounter Summary ---
Author Organization [employer] Address [address] 7t [place] [address] Care Team Providers Care Cork Tile Floor Layer Name Role Phone Dary Herrera DO Primary Care Provider [phone] Lana Varghese Unavailable Unavailable Encounter Details Date Type Department Care Team (Late st Contact Info) Description 10/20/2023 Orders Only [facility] MEDICAL [address] [place] [address] Dary Herrera DO [address] [place] [address] Recurrent low back pain Social History Tobacco [...] 02/18/2025 1:45 PM EDT Office Visit [facility] [address] [place] [address] Dary Herrera DO [address] [place] [address] documented as of this encounter Visit Diagnoses Diagnosis Recurrent low back pain Lumbago documented in this encounter Additional Health Concerns Assessment Noted Time PHQ-9 Depression Total Score: 0 08/14/20 3:30 PM EST documented as of this encounter Care Teams Cork Tile Floor Layer Relationship Specialty Start Date End Date Dary Herrera DO [address] [place] [address] PCP - General Family Medicine 07/21/23 Lana Varghese Community Health Worker Community Health Worker 08/03/23 documented as of this encounter
--- OUTSIDE RECORDS SUMMARY | 2025-01-29 15:16 | XMS_ITS | Encounter Summary ---
Author Organization [employer] Address [address] 7[address] [place] [address] Care Team Providers Care Power Project Manager Name Role Phone Dary Herrera DO Primary Care Provider [phone] Lana Varghese Unavailable Unavailable Reason for Visit * Reason Onset Date Comments Med Refill 04/15/2024 Encounter Details Date Type Department Care Team (Late st Contact Info) Description 04/15/2024 Telephone [facility] MED[facility] [address] [place] [address] Dary Herrera DO [address] [place] [address] Med Refill Social History Tobacco Use Types [...] Notes * Telephone Encounter - Dary Herrera - 04/16/2024 1:31 PM EDT New Medications [...] Description 02/18/2025 1:45 PM EDT Office Visit [facility] MED[facility] [address] [place] [address] Dary Herrera DO [address] [place] [address] documented as of this encounter Visit Diagnoses Diagnosis Recurrent low back pain Lumbago documented in this encounter Additional Health Concerns Assessment Noted Time PHQ-9 Depression Total Score: 0 08/14/20 23 3:30 PM EST documented as of this encounter Care Teams Power Project Manager Relationship Specialty Start Date End Date Dary Herrera DO [address] [place] [address] PCP - General Family Medicine 07/21/23 Lana Varghese Community Health Worker Community Health Worker 08/03/23 documented as of this encounter
--- OUTSIDE RECORDS SUMMARY | 2025-01-29 15:16 | XMS_ITS | Encounter Summary ---
Author Organization [employer] Address [address] 7[address] [place] [address] Care Team Providers Care Photographers' Model Name Role Phone Dary Herrera DO Primary Care Provider [phone] Lana Varghese Unavailable Unavailable Reason for Visit * Reason Comments Med Change Request Encounter Details Date Type Department Care Team (Late st Contact Info) Description 08/14/2023 [facility] [address] [place] [address] Dary Herrera DO [address] [place] [address] Social History Tobacco Use Types Packs/Day Years [...] PM EST documented as of this encounter Functional Status * Over the past 2 weeks, how often have you been bothered by any of the following problems? Question Answer Date of Assessment Author Patient Health Questionnaire-2 Score 0 07/20 3:30 PM EST Calista, Sarah, RMA * Little interest or pleasure in doing things Answer Date of Assessment Author Not at all 08/14/2023 3:30 PM EST Dorene Grigsbyy, RMA * Feeling down, depressed, or hopeless Answer Date of Assessment Author Not at all 08/14/2023 3:30 PM EST Calista, Mi sty, RMA * Trouble falling or staying asleep, or sleeping too much Answer Date of Assessment Author Not at all 08/14/2023 3:30 PM EST Calista, Mi sty, RMA * Feeling tired or having little energy Answer Date of Assessment Author Not at all 08/14/2023 3:30 PM EST Calista, Mi sty, RMA * Poor appetite or overeating Answer Date of Assessment Author Not at all 08/14/2023 3:30 PM EST Calista, Mi sty, RMA * Feeling bad about yourself - or that you are a failure or have let yourself or your family down Answer Date of Assessment Author Not at all 08/14/2023 3:30 PM EST Calista, Mi sty, RMA * Trouble concentrating on things, such as reading the newspaper or watching television Answer Date of Assessment Author Not at all 08/14/2023 3:30 PM EST Calista, Mi sty, RMA * Moving or speaking so slowly that other people could have noticed? Or the opposite - being so fidgety or restless that you have been moving around a lot more than usual. Answer Date of Assessment Author Not at all 08/14/2023 3:30 PM EST Calista Mi sty, RMA * Thoughts that you would be better off or hurting yourself in some way Answer Date of Assessment Author Not at all 08/14/2023 3:30 PM EST Calista Mi sty, RMA * Patient Health Questionnaire-9 Score Answer Date of Assessment Author 0 08/14/2023 3:30 PM EST Calista, Mi sty, RMA documented as of this encounter Plan of Treatment Upcoming Encounters Date Type Department Care Team (Late st Contact Info) Description 02/18/2025 1:45 PM EDT Office Visit [place] [facility] [address] [place] [address] Dary Herrera DO [address] [place] [address] documented as of this encounter Visit Diagnoses Not on filedocumented in this encounter Additional Health Concerns Assessment Noted Time PHQ-9 Depression Total Score: 0 08/14/20 3:30 PM EST documented as of this encounter Care Teams Photographers' Model Relationship Specialty Start Date End Date Dary Herrera DO [address] [place] [address] PCP - General Family Medicine 07/21/23 Lana Varghese Community Health Worker Community Health Worker 08/03/23 documented as of this encounter
--- OUTSIDE RECORDS SUMMARY | 2025-01-29 15:16 | XMS_ITS | Encounter Summary ---
Author Organization [employer] Address [address] [place] [address] Care Team Providers Care Manager Cafe Name Role Phone Dary Herrera DO Primary Care Provider [phone] Lana Varghese Unavailable Unavailable Reason for Visit * Reason Onset Date Comments Med Refill 04/08/2024 Encounter Details Date Type Department Care Team (Late st Contact Info) Description 04/08/2024 Refill [place] [facility] [address] [place] [address] Dary Herrera DO [address] [place] [address] Recurrent low back pain Social History Tobacco [...] 02/18/2025 1:45 PM EDT Office Visit [facility] [address] [place] [address] Dary Herrera DO [address] [place] [address] documented as of this encounter Visit Diagnoses Diagnosis Recurrent low back pain Lumbago documented in this encounter Additional Health Concerns Assessment Noted Time PHQ-9 Depression Total Score: 0 08/14/20 23 3:30 PM EST documented as of this encounter Care Teams Manager Cafe Relationship Specialty Start Date End Date Dary Herrera DO [address] [place] [address] PCP - General Family Medicine 07/21/23 Lana Varghese Community Health Worker Community Health Worker 08/03/23 documented as of this encounter
--- OUTSIDE RECORDS SUMMARY | 2025-01-29 15:16 | XMS_ITS | Encounter Summary ---
Author Organization [employer] Address [address] 7[address] [place] [address] Care Team Providers Care Licensing Registration Examiner Name Role Phone Dary Herrera DO Primary Care Provider [phone] Lana Varghese Unavailable Unavailable Encounter Details Date Type Department Care Team (Late st Contact Info) Description 12/30/2024 Orders Only [facility] [address] [place] [address] Dary Herrera DO [address] [place] [address] Social History Tobacco Use Types Packs/Day Years [...] Description 02/18/2025 1:45 PM EDT Office Visit [facility] MEDICAL [address] [place] [address] Dary Herrera DO [address] [place] [address] documented as of this encounter Procedures Procedure [...] documented as of this encounter Care Teams Licensing Registration Examiner Relationship Specialty Start Date End Date King Dary [address] [place] [address] PCP - General Family Medicine 07/21/23 Lana Varghese Community Health Worker Community Health Worker 08/03/23 documented as of this encounter
--- OUTSIDE RECORDS SUMMARY | 2025-01-29 15:16 | XMS_ITS | Encounter Summary ---
Author Organization [employer] Address [address] 7[address] [place] [address] Care Team Providers Care Electrical Assembly Supervisor Name Role Phone Dary Herrera DO Primary Care Provider [phone] Lana Varghese Unavailable Unavailable Reason for Visit * Reason Onset Date Comments Med Refill 05/06/2024 Encounter Details Date Type Department Care Team (Late st Contact Info) Description 05/06/2024 Refill [facility] [address] [place] [address] Dary Herrera DO [address] [place] [address] Recurrent low back pain Social History Tobacco [...] Notes * Telephone Encounter - Sarah Grigsby, RMA - 05/06/2024 12:32 PM EDT [facility] Last fill Date:8/13/24 Last OV:04/16/24 Next OV:N/A Last UTOX:02/06/24 CSA Date:09/25/23 DNF Date:05/07/24 documented in this encounter Plan of Treatment Upcoming Encounters Date Type Department Care Team (Late st Contact Info) Description 02/18/2025 1:45 PM EDT Office Visit [facility] MEDICAL [address] [place] [address] Dary Herrera DO [address] [place] [address] documented as of this encounter Visit Diagnoses Diagnosis Recurrent low back pain Lumbago documented in this encounter Additional Health Concerns Assessment Noted Time PHQ-9 Depression Total Score: 0 08/14/20 23 3:30 PM EST documented as of this encounter Care Teams Electrical Assembly Supervisor Relationship Specialty Start Date End Date Dary Herrera DO [address] [place] [address] PCP - General Family Medicine 07/21/23 Lana Varghese Community Health Worker Community Health Worker 08/03/23 documented as of this encounter
--- OUTSIDE RECORDS SUMMARY | 2025-01-29 15:17 | XMS_ITS | Encounter Summary ---
Author Organization [employer] Address [address] 7[address] [place] [address] Care Team Providers Care Dental Surgeon Name Role Phone Dary Herrera Primary Care Provider [phone] Lana Varghese Unavailable Unavailable Encounter Details Date Type Department Care Team (Late st Contact Info) Description 02/19/2024 Orders Only [facility] MED[facility] [address] [place] [address] ProviderJessica MD Social History Tobacco Use Types [...] 02/18/2025 1:45 PM EDT Office Visit [place] MED[facility] [address] [place] [address] Dary Herrera DO [address] [place] [address] documented as of this encounter Procedures Procedure [...] documented as of this encounter Care Teams Dental Surgeon Relationship Specialty Start Date End Date Dayr Herrera DO [address] [place] [address] PCP - General Family Medicine 07/21/23 Lana Varghese Community Health Worker Community Health Worker 08/03/23 documented as of this encounter
--- OUTSIDE RECORDS SUMMARY | 2025-01-29 15:17 | XMS_ITS | Encounter Summary ---
Author Organization [employer] Address [address] [facility] 7t [place] [address] Care Team Providers Care Respite Worker Name Role Phone Dary Herrera DO Primary Care Provider Lana Varghese Unavailable Unavailable Reason for Referral * Consultation (Routine) - Closed Specialty Diagnoses / Procedures Referred By Contac t Referred To Contact Pain Medicine Diagnoses Recurrent low back pain Spondylolysis of lumbar region Lumbar pars defect Dary Herrera DO [address] [place] [address] Phone: tel: fax: [facility], [address] Lott [address] [place] [address] Phone: tel: fax: Referral ID Status Reason Start Date Expiration Date V isits Requested Visits Authorized [id number] Closed Specialty Services Required 02/01/2024 01/31/2025 1 1 Encounter Details Date Type Department Care Team (Late st Contact Info) Description 02/01/2024 Orders Only [place] [facility] [address] [place] [address] Dary Herrera DO [address] [place] [address] Recurrent low back pain (Primary Dx); Spondylolysis of lumbar region L5; Lumbar pars defect; long-term use of drug; Abnormal drug screen Social [...] Description 02/18/2025 1:45 PM EDT Office Visit [place] [facility] [address] [place], [place] [id number] Dary Herrera DO [address] [place] [address] documented as of this encounter Procedures Procedure [...] is not intended to ?? distinguish between ijelx-3-owghqvxfhbvxsfpsjxfv, the predominant ?? form of THC in most herbal or marijuana-based products, and ?? yrptg-3-xdqucwvbdnybcrgvclrl. ??Hydromorphone ?43 ?ng/mg creat ??Norhydrocodone ? 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
--- OUTSIDE RECORDS SUMMARY | 2025-01-29 15:17 | XMS_ITS | Encounter Summary ---
Author Organization [employer] Address [address] 7t [place] [address] Care Team Providers Care Mallet And Die Cutter Name Role Phone Dary Herrera DO Primary Care Provider [phone] Lana Varghese Unavailable Unavailable Reason for Visit * Reason Onset Date Comments Can not get ahold of patient 01/29/2025 Encounter Details Date Type Department Care Team (Late st Contact Info) Description 01/29/2025 Telephone [facility] MED[facility] [address] [place] [address] Dary Herrera DO [address] [place] [address] Can not get ahold of patient Social History Tobacco Use Types Packs/Day Years [...] Telephone Encounter - Brittnee Gonzales RN - 01/29/2025 2:58 PM EDT Pt reports he is seeing pain management at [facility]. Had OV January 16 and today January 30. Had an MRI at [facility] in January as well. Pt states he called [facility] pain management and canceled his appointment there. Confirmed phone numbers in chart are correct. Pt reports Robaxin for muscle spasms is not effective in controlling sx and makes him feel drunk when he wakes up and is hard to wake up. Gabapentin is fine but he says he takes for RLS, and does notwork on his pain. Has FU OV February 18. Says pain clinic does not manage any oral pain medications. I asked pt to make sure [facility] has PCP info and for them to send all his records to his PCP. TE to HIM to get [facility] office notes and MRI report. TE to PCP to advise alternative to Robaxin while pt waits for February 18 OV. * Telephone Encounter - Dary Herrera DO - 01/29/2025 12:27 PM EDT noted * Telephone Encounter - Meli Reddy LPN - 01/29/2025 12:00 [address]T FYI to Dr Herrera * Telephone Encounter - Meli Reddy LPN - 01/29/2025 11:59 AM EDT Left message for pt to call back. * Telephone Encounter - Naya Simon - 01/29/2025 11:15 AM EDT Manuela, a nurse from [facility] pain management left VM on patient explaining that she can not get incontact with the patient. She has tried to call him on 01/07 and today, and left a message the firsttime, second time his mailbox was full, he has not contacted her in response. He was referred to physiatry at [facility] and no showed that appt 12/17. She just wants to let [facility] know that they cannot get ahold of him. With any question call back [phone] documented in this encounter Plan of Treatment Upcoming Encounters Date Type Department Care Team (Late st Contact Info) Description 02/18/2025 1:45 PM EDT Office Visit [place] [facility] MED[facility] [address] [place] [address] Dary Herrera DO [address] [place] [address] documented as of this encounter Visit Diagnoses Not on filedocumented in this encounter Additional Health Concerns Assessment Noted Time PHQ-9 Depression Total Score: 0 08/14/20 23 3:30 PM EST documented as of this encounter Care Teams Mallet And Die Cutter Relationship Specialty Start Date End Date Dary Herrera DO [address] [place] [address] PCP - General Family Medicine 07/21/23 Lana Varghese Community Health Worker Community Health Worker 08/03/23 documented as of this encounter
--- OUTSIDE RECORDS SUMMARY | 2025-01-29 15:17 | XMS_ITS | Encounter Summary ---
Author Organization [employer] Address [address] [facility] [address] 7t [place] [address] Care Team Providers Care Graphics Editor Name Role Phone Dary Herrera DO Primary Care Provider [phone] Lana Varghese Unavailable Unavailable Reason for Visit * Reason Comments Med Refill Encounter Details Date Type Department Care Team (Late st Contact Info) Description 01/24/2025 Refill [place] [facility] [address] [place] [address] Dary Herrera DO [address] [place] [address] Recurrent low back pain Social History Tobacco [...] Office Visit [facility] MED[facility] [address] [place] [address] Dary Herrera DO [address] [place] [address] documented as of this encounter Visit Diagnoses Diagnosis Recurrent low back pain Lumbago documented in this encounter Additional Health Concerns Assessment Noted Time PHQ-9 Depression Total Score: 0 08/14/20 3:30 PM EST documented as of this encounter Care Teams Graphics Editor Relationship Specialty Start Date End Date Dary Herrera DO [address] [place] [address] PCP - General Family Medicine 07/21/23 Lana Varghese Community Health Worker Community Health Worker 08/03/23 documented as of this encounter
--- OUTSIDE RECORDS SUMMARY | 2025-01-29 15:17 | XMS_ITS | Encounter Summary ---
Author Organization [employer] Address [address] [facility] [address] 7t [place] [address] Care Team Providers Care Program Specialist Name Role Phone Dary Herrera DO Primary Care Provider [phone] Lana Varghese Unavailable Unavailable Encounter Details Date Type Department Care Team (Late st Contact Info) Description 02/28/2024 Orders Only [place] [facility] [address] [place] [address] Dary Herrera DO [address] [place] [address] Social History Tobacco Use Types Packs/Day Years [...] the past 12 months, has t he [employer], gas, oil or water [employer] threatened to shut off services in your [...] Description 02/18/2025 1:45 PM EDT Office Visit [place] [facility] [address] [place] [address] Dary Herrera DO [address] [place] [address] documented as of this encounter Procedures Procedure [...] documented as of this encounter Care Teams Program Specialist Relationship Specialty Start Date End Date Dary Herrera DO [address] [place] [address] PCP - General Family Medicine 07/21/23 Lana Varghese Community Health Worker Community Health Worker 08/03/23 documented as of this encounter
--- OUTSIDE RECORDS SUMMARY | 2025-01-29 15:17 | XMS_ITS | Encounter Summary ---
Author Organization [employer] Address [address] [facility] [address] 7t [place] [address] Care Team Providers Care Avionics Systems Integration Specialist Name Role Phone Dary Herrera DO Primary Care Provider [phone] Lana Varghese Unavailable Unavailable Encounter Details Date Type Department Care Team (Late st Contact Info) Description 11/20/2023 Orders Only [facility] MED[facility] [address] [place] [address] Dary Herrera DO [address] [place] [address] Restless leg; Paresthesia and pain of both [...] PM EDT Office Visit [place] [facility] [address] [place] [address] Dary Herrera DO [address] [place] [address] documented as of this encounter Procedures Procedure [...] documented as of this encounter Care Teams Avionics Systems Integration Specialist Relationship Specialty Start Date End Date Dary Herrera DO [address] [place] [address] PCP - General Family Medicine 07/21/23 Lana Varghese Community Health Worker Community Health Worker 08/03/23 documented as of this encounter
--- OUTSIDE RECORDS SUMMARY | 2025-01-29 15:17 | XMS_ITS | Encounter Summary ---
Author Organization [employer] Address [address] [facility] [address] 7t [place] [address] Care Team Providers Care Cognos Architect Name Role Phone Dary Herrera DO Primary Care Provider [phone] Lana Varghese Unavailable Unavailable Reason for Visit * Reason Comments Med Refill Encounter Details Date Type Department Care Team (Late st Contact Info) Description 01/26/2025 Refill [place] [facility] [address] [place] [address] Dary Herrera DO [address] [place] [address] Recurrent low back pain Social History Tobacco [...] encounter Miscellaneous Notes * Telephone Encounter - Yaron Sanchez - 01/27/2025 3:54 PM EDT Refill Gabapentin(Neurontin) 300 mg caps Mass[facility] Last fill Date:12/30/24 [facility] sold Date:12/30/24 #180/30 days Last OV:01/06/25 Next OV:02/18/25 Last UTOX:12/12/24 CSA Date:12/12/24 DNF Date:01/29/25 documented in this encounter Plan of Treatment Upcoming Encounters Date Type Department Care Team (Late st Contact Info) Description 02/18/2025 1:45 PM EDT Office Visit [place] [facility] [address] [place] [address] Dary Herrera DO [address] [place] [address] documented as of this encounter Visit Diagnoses Diagnosis Recurrent low back pain Lumbago documented in this encounter Additional Health Concerns Assessment Noted Time PHQ-9 Depression Total Score: 0 08/14/20 3:30 PM EST documented as of this encounter Care Teams Cognos Architect Relationship Specialty Start Date End Date Dary Herrera DO [address] [place] [address] PCP - General Family Medicine 07/21/23 Lana Varghese Community Health Worker Community Health Worker 08/03/23 documented as of this encounter
== END 2025-01-29 15:39 | disposition home or self-care (01) ==
LOC: HO.PMC 15:11
PROVIDERS: Visit Provider Registered Nurse Emergency
DX: M47.816 Spondylosis without myelopathy or radiculopathy, lumbar region (principal)
CPT/HCPCS: 99213

== ENCOUNTER 2025-01-29 15:11 | Outpatient (REF) | payer MEDICAID, SELFPAY ==
--- NOTE | ~2025-01-29 | XR_ITS ---
CLINICAL HISTORY: M47.816 - Spondylosis without myelopathy or radiculopathy, lumbar region 6 views lumbar spine Comparison: MR - MR LUMBAR SPINE WO CON - 01/16/25 18:28 EDT Findings: Stable grade 1 anterolisthesis of L5 on S1 measuring 7 mm. No instability. Bilateral L5-S1 pars interarticularis defects. No acute fractures or dislocation. No significant degenerative change. IMPRESSION: Stable grade 1 isthmic spondylolisthesis at L5-S1. This document has been electronically signed by: Raymundo Eden MD on 01/30/2025 16:46:11
--- OUTSIDE RECORDS SUMMARY | 2025-01-29 15:52 | XMS_ITS | Clinical Summary ---
Author Organization [employer] Address [address] [facility] [address] 7t [place] [address] Care Team Providers Care Fish Seiner Name Role Phone Dary Herrera DO Primary Care Provider [phone] Lana Varghese Unavailable Unavailable Allergies Active Allergy [...] a new pair of pj pants from [employer]. He states he did not wash them [...] molar dental extraction by his dentist in [facility] on 10 06 23 presents today requesting [...] but apparently only filled the Tramadol. [place] ANIMAL NURSE database referenced and confirmed. Pt agrees to [...] a neurosurgeon on Monday this week in [place] (see HPI, Dandre cannot recall the name of the specialist but states he is at [address] in [place]. He states the neurosurgeon told him he [...] Tonight we encouraged Dandre to call [facility] to make that overdue followup visit, [...] pain with radiculopathy. Orthopedics referral entered by [facility] SMEARER at last same-day visit, pending. Preliminary X [...] time . Discussed with pt recommendation for network operations specialist exam and also discussed red flag [...] established with PCP JOHN PAUL Bassett at [facility] on schedule tonight for telehealth visit reporting that his therapist Shelia Ortiz at [facility] recommended he ask his PCP for med [...] therapist share with his PCP/chart here at [facility] for future visit. Resolved Problems Problem Noted [...] and ibuprofen 600mg, 2 tabs (1200 mg) [id number], due to perceived lack of efficacy of [...] Type Department Care Team Description 01/29/[address] [address] Dary Herrera DO Can not get ahold of patient 01/26/[address] [address] Dary Herrera DO Recurrent low back pain 01/24/[address] [address] Dary Herrera DO Recurrent low back pain 01/06/2025 2:20 PM EDT Office Visit [address] [address] Renetta Peña, [place]-Pratik Atypical nevus of back (Primary Dx); Bilateral sciatica; Spondylolysis of lumbar region 01/06/2025 Travel 12/30/2024 Orders Only [facility] Information Management [address] [place] [address] Dary Herrera DO 12/30/[address] [address] Dary Herrera DO hospital discharge, obtain hospital records 12/30/[address] [place] [address] Dary Herrera DO Recurrent low back pain 12/19/2024 Telephone [facility] Information Management [address] [facility] [place] [address] Dary Herrera DO ER Follow-up 12/18/[address] [place] [address] Dary Herrera DO question about referral 12/18/2024 Telephone [facility] Information [facility] [address] [place] [address] Dary Herrera DO 12/17/[address] [place] [address] Dary Herrera DO Results 12/12/2024 11:30 AM EDT Clinical Support [address] [address] Tammy Dorado RN termite control representative use of drug 12/12/2024 Travel 12/11/[address] [place] [address] Dary Herrera DO FYI 11/29/2024 Population Health Risk Score [facility] () Department [address] [place] [phone] Provider, Population Health Generic 11/27/[address] [address] Dary Herrera DO Recurrent low back pain 11/22/2024 Telephone [facility] Information Management [address] [place] [address] Dary Herrera DO from Last 3 Months [...] the past 12 months, has t he [employer], gas, oil or water [employer] threatened to shut off services in your [...] 02/18/2025 1:45 PM EDT Office Visit [place] [facility] [address] [place] [address] Dary Herrera DO [address] [place] [address] Health Maintenance Due Date Last Done Comments [...] 15, URINE Routine 12/12/2024 12:00 AM EDT halfway use of drug LIPID PANEL, STANDARD Routine 07/21/2023 9:08 AM EDT Lipid screening [facility] HISTORICAL HEPATITIS C ANTIBODY TEST Routine 08/25/2021 3:21 PM EST HIV 1/2 ANTIGEN/ANTIBODY, FOURTH GENERATION W/RFL Routine 08/25/2021 3:21 PM EST from Last 3 Months or Most Recently Relevant to Health Maintenance Results * Referral to Pain Medicine (01/10/2025) [facility] OUTPATIENT REFERRAL ORDERABLES Final Result * XR Lumbar Spine 2-3 Views (12/18/2024 1:17 PM EDT) Anatomical Region Laterality Modality Spine, L-spine Radiographic Clari [facility] DO IMG XR PROCEDURES Final Result * Comprehensive Metabolic Panel (12/17/2024 1:19 PM EDT) Blood Venous blood specimen / Unknown [facility] LAB BLOOD ORDERABLES Final Res ult * [...] 6:05 PM EDT Performed at: ??01 - [employer] [address] [place] [address] ??[id number] Supervisor Shuttle Veneering: Livier Mak PhrNV, Phone: ??[phone] Dary Javier DO LAB URINE ORDERABLES Final Res ult Performing Organization Address [facility] Co de Phone Number [facility] 1 [...] 6:05 PM EDT Performed at: ??01 - [employer] [address] [place] [address] ??[id number] Supervisor Shuttle Veneering: Livier Streeter, Phone: ??[phone] Dary Herrera DO HISTORICAL/NON ORDERABLE LABS Final Result Performing Organization Address [facility] de Phone Number [facility] 1 * (ABNORMAL) Lipid panel (07/21/2023 9:08 AM EDT) Cholesterol, Total 166 (<200) MG/DL [facility] Triglyceride (mg/dL) in Serum/Plasma 205(H) (<150) MG/DL [facility] HDL Cholesterol 40 (>39) MG/DL [facility] LDL Cholesterol, Calculated 85 (0-130) MG/DL [facility] Non HDL Chol. (LDL+VLDL) 126 (<160) MG/DL [facility] Comment: Testing performed or reported by [facility], a Service of [facility], [address] [place] [address] José Deluna MD, Under Trimmer [facility]# [id number] Blood Venous blood specimen / Unknown 07/21/2023 9:08 AM EDT 07/21/2023 9:11 AM EDT Dary Herrera LAB BLOOD ORDERABLES Final Res ult [facility] [address] [place] [address] * -Hepatitis C Antibody Test (08/25/2021 3:21 PM EST) ANTI-HEPATITIS C NEGATIVE (NEG) [facility] Comment: Reference range: Negative This test was performed on the [employer] immunoassay system. 08/25/2021 3:21 PM EST Deandre Delatorre NP HISTORICAL/NON ORDERABLE LAB S Final Result Performing Organization Address [facility] Co de Phone Number [facility] [address] * -HIV AB-AG 4TH GENERATION (08/25/2021 3:21 PM EST) RESULT 4TH GEN HIV AB-AG NEGATIVE (NEG) [facility] Comment: Negative for antibodies to HIV 1 and HIV 2 and P24 antigen. Reference range: Negative Additional note: Written patient authorization is required for each separate release of this test result. This test was performed on the [employer] immunoassay system. 08/25/2021 3:21 PM EST Deandre Delatorre NP LAB BLOOD ORDERABLES Final R esult Performing Organization Address [facility] Co de Phone Number [facility] [address] from Last 3 Months or Most Recently Relevant to Health Maintenance Insurance [facility] C3 Care Teams Fish Seiner Relationship Specialty Start Date End Date Dary Herrera DO [address] [place] [address] PCP - General Family Medicine 07/21/23 Lana Varghese Community Health Worker Community Health Worker 08/03/23
--- OUTSIDE RECORDS SUMMARY | 2025-01-29 15:52 | XMS_ITS | Encounter Summary ---
Author Organization [employer] Address [address] [facility] [address] 7t [place] [address] Care Team Providers Care Secretarial Teacher Name Role Phone Dary Herrera DO Primary Care Provider [phone] Lana Varghese Unavailable Unavailable Reason for Visit * Reason Onset Date Comments question about referral 12/18/2024 Encounter Details Date Type Department Care Team (Late st Contact Info) Description 12/18/2024 Telephone [facility] MEDICAL [address] [place] [address] Dary Herrera DO [address] [place] [address] question about referral Social History Tobacco Use [...] for 12/24/2024 at 2:20 PM in the [facility]. * Telephone Encounter - Eufemia Ho - 12/18/2024 4:08 PM EDT Call to patient x 2 left voicemail to call back. Called office to follow up on patient and he is scheduled for 12/24/24 at 2:[address] Platt that patient scheduled with that office today at 12:45 pm. Waiting university extension specialist back from patient. * Telephone Encounter - [...] back pocket: Dr. Ron Platt, phone number [phone], fax number [phone],[address] [place], [place]. Patient states he would like a call back with updates, thank you! documented in this encounter Plan of Treatment Upcoming Encounters Date Type Department Care Team (Late st Contact Info) Description 02/18/2025 1:45 PM EDT Office Visit [place] [facility] MED[facility] [address] [place] [address] Dary Herrera DO [address] [place] [address] documented as of this encounter Visit Diagnoses Not on filedocumented in this encounter Additional Health Concerns Assessment Noted Time PHQ-9 Depression Total Score: 0 08/14/20 3:30 PM EST documented as of this encounter Care Teams Secretarial Teacher Relationship Specialty Start Date End Date Dary Herrera DO [address] [place] [address] PCP - General Family Medicine 07/21/23 Lana Varghese Community Health Worker Community Health Worker 08/03/23 documented as of this encounter
--- OUTSIDE RECORDS SUMMARY | 2025-01-29 15:52 | XMS_ITS | Encounter Summary ---
Author Organization [employer] Address [address] [facility] [address] 7t [place] [address] Care Team Providers Care Performance Test Architect Name Role Phone Dary Herrera DO Primary Care Provider [phone] Lana Varghese Unavailable Unavailable Encounter Details Date Type Department Care Team (Late st Contact Info) Description 02/28/2024 Orders Only [facility] [address] [place] [address] Dary Herrera DO [address] [place] [address] Social History Tobacco Use Types Packs/Day Years [...] the past 12 months, has t he [employer], gas, oil or water [employer] threatened to shut off services in your [...] Description 02/18/2025 1:45 PM EDT Office Visit [place] [facility] [address] [place] [address] Dary Herrera DO [address] [place] [address] documented as of this encounter Procedures Procedure [...] documented as of this encounter Care Teams Performance Test Architect Relationship Specialty Start Date End Date Dary Herrera DO [address] [place] [address] PCP - General Family Medicine 07/21/23 Lana Varghese Community Health Worker Community Health Worker 08/03/23 documented as of this encounter
--- OUTSIDE RECORDS SUMMARY | 2025-01-29 15:52 | XMS_ITS | Encounter Summary ---
Author Organization [employer] Address [address] 7t [place] [address] Care Team Providers Care Wrapper Counter Name Role Phone Dary Herrera DO Primary Care Provider [phone] Lana Varghese Unavailable Unavailable Encounter Details Date Type Department Care Team (Late st Contact Info) Description 12/30/2024 Orders Only [facility] [address] [place] [address] Dary Herrera DO [address] [place] [address] Social History Tobacco Use Types Packs/Day Years [...] PM EDT Office Visit [facility] [address] [place] [address] Dary Herrera DO [address] [place] [address] documented as of this encounter Procedures Procedure Name Priority Date/Time Associated Diagnosis Comments XR LUMBAR SPINE 2-3 VIEWS Routine 2024 1:17 PM EDT COMPREHENSIVE METABOLIC PANEL Routine 12/17/2024 1:19 PM EDT documented in this encounter Results * XR Lumbar Spine 2-3 Views (12/18/2024 1:17 PM EDT) Anatomical Region Laterality Modality Spine, L-spine Radiographic Clari ging us aDry Herrera DO IMG XR PROCEDURES Final Result [...] documented as of this encounter Care Teams Wrapper Counter Relationship Specialty Start Date End Date [place] Dary [address] [place] [address] PCP - General Family Medicine 07/21/23 Lana Varghese Community Health Worker Community Health Worker 08/03/23 documented as of this encounter
--- OUTSIDE RECORDS SUMMARY | 2025-01-29 15:52 | XMS_ITS | Encounter Summary ---
Author Organization [employer] Address [address] 7t [place] [address] Care Team Providers Care Senior Outside Sales Representative Name Role Phone Dary Herrera DO Primary Care Provider [phone] Lana Varghese Unavailable Unavailable Encounter Details Date Type Department Care Team (Late st Contact Info) Description 11/09/2023 Orders Only [facility] [address] [place] [address] Dary Herrera DO [address] [place] [address] Social History Tobacco Use Types Packs/Day Years [...] the past 12 months, has t he [employer], gas, oil or water [employer] threatened to shut off services in your [...] 02/18/2025 1:45 PM EDT Office Visit [facility] [address] [place] [address] Dary Herrera DO [address] [place] [address] documented as of this encounter Procedures Procedure [...] as of this encounter Care Teams Senior Outside Sales Representative Relationship Specialty Start Date End Date Dary Herrera DO [address] [place] [address] PCP - General Family Medicine 07/21/23 Lana Varghese Community Health Worker Community Health Worker 08/03/23 documented as of this encounter
--- OUTSIDE RECORDS SUMMARY | 2025-01-29 15:52 | XMS_ITS | Encounter Summary ---
Author Organization [employer] Address [address] 7t [place] [address] Care Team Providers Care Senior Gis Analyst Name Role Phone Dary Herrera DO Primary Care Provider [phone] Lana Varghese Unavailable Unavailable Reason for Visit * Reason Comments Med Refill Encounter Details Date Type Department Care Team (Late st Contact Info) Description 01/24/2025 Refill [facility] [address] [place] [address] Dary Herrera DO [address] [place] [address] Recurrent low back pain Social History Tobacco [...] PM EDT Office Visit [facility] [address] [place] [address] Dary Herrera DO [address] [place] [address] documented as of this encounter Visit Diagnoses Diagnosis Recurrent low back pain Lumbago documented in this encounter Additional Health Concerns Assessment Noted Time PHQ-9 Depression Total Score: 0 08/14/20 3:30 PM EST documented as of this encounter Care Teams Senior Gis Analyst Relationship Specialty Start Date End Date Dary Herrera DO [address] [place] [address] PCP - General Family Medicine 07/21/23 Lana Varghese Community Health Worker Community Health Worker 08/03/23 documented as of this encounter
--- OUTSIDE RECORDS SUMMARY | 2025-01-29 15:52 | XMS_ITS | Encounter Summary ---
Author Organization [employer] Address [address] 7[address] [place] [address] Care Team Providers Care Pneumatic Tool Operator Name Role Phone Dary Herrera DO Primary Care Provider [phone] Lana Varghese Unavailable Unavailable Reason for Visit * Reason Comments Med Change Request Encounter Details Date Type Department Care Team (Late st Contact Info) Description 08/14/2023 [facility] [address] [place] [address] Dary Herrera DO [address] [place] [address] Social History Tobacco Use Types Packs/Day Years [...] Not at all 08/14/2023 3:30 PM EST Dornee Grigsbyy, RMA * Feeling down, depressed, or [...] Description 02/18/2025 1:45 PM EDT Office Visit [facility] [address] [place] [address] Dary Herrera DO [address] [place] [address] documented as of this encounter Visit Diagnoses Not on filedocumented in this encounter Additional Health Concerns Assessment Noted Time PHQ-9 Depression Total Score: 0 08/14/20 3:30 PM EST documented as of this encounter Care Teams Pneumatic Tool Operator Relationship Specialty Start Date End Date Dary Herrera DO [address] [place] [address] PCP - General Family Medicine 07/21/23 Lana Varghese Community Health Worker Community Health Worker 08/03/23 documented as of this encounter
--- OUTSIDE RECORDS SUMMARY | 2025-01-29 15:52 | XMS_ITS | Encounter Summary ---
Author Organization [employer] Address [address] 7t [place] [address] Care Team Providers Care Handle Bender Name Role Phone Dary Herrera DO Primary Care Provider [phone] Lana Varghese Unavailable Unavailable Reason for Visit * Reason Onset Date Comments Med Refill 05/06/2024 Encounter Details Date Type Department Care Team (Late st Contact Info) Description 05/06/2024 Refill [facility] [address] [place] [address] Dary Herrera DO [address] [place] [address] Recurrent low back pain Social History Tobacco [...] Description 02/18/2025 1:45 PM EDT Office Visit [facility] [address] [place] [address] Dary Herrera DO [address] [place] [address] documented as of this encounter Visit Diagnoses Diagnosis Recurrent low back pain Lumbago documented in this encounter Additional Health Concerns Assessment Noted Time PHQ-9 Depression Total Score: 0 08/14/20 23 3:30 PM EST documented as of this encounter Care Teams Handle Bender Relationship Specialty Start Date End Date Dary Herrera DO [address] [place] [address] PCP - General Family Medicine 07/21/23 Lana Varghese Community Health Worker Community Health Worker 08/03/23 documented as of this encounter
--- OUTSIDE RECORDS SUMMARY | 2025-01-29 15:52 | XMS_ITS | Encounter Summary ---
Author Organization [employer] Address [address] [place] [address] Care Team Providers Care Grain Combiner Name Role Phone Dary Herrera DO Primary Care Provider [phone] Lana Varghese Unavailable Unavailable Reason for Visit * Reason Comments Med Refill Encounter Details Date Type Department Care Team (Late st Contact Info) Description 01/26/2025 Refill [place] [facility] [address] [place] [address] Dary Herrera DO [address] [place] [address] Recurrent low back pain Social History Tobacco [...] Description 02/18/2025 1:45 PM EDT Office Visit [place] [facility] 73 [place] [address] Dary Herrera DO [address] [place] [address] documented as of this encounter Visit Diagnoses Diagnosis Recurrent low back pain Lumbago documented in this encounter Additional Health Concerns Assessment Noted Time PHQ-9 Depression Total Score: 0 08/14/20 3:30 PM EST documented as of this encounter Care Teams Grain Combiner Relationship Specialty Start Date End Date Dary Herrera DO [address] [place] [address] PCP - General Family Medicine 07/21/23 Lana Varghese Community Health Worker Community Health Worker 08/03/23 documented as of this encounter
--- OUTSIDE RECORDS SUMMARY | 2025-01-29 15:52 | XMS_ITS | Encounter Summary ---
Author Organization [employer] Address [address] [facility] 7t [place] [address] Care Team Providers Care Lithograph Designer Name Role Phone Dary Herrera DO Primary Care Provider [phone] Lana Varghese Unavailable Unavailable Reason for Referral * Consultation (Routine) - Closed Specialty Diagnoses / Procedures Referred By Contac t Referred To Contact Pain Medicine Diagnoses Recurrent low back pain Spondylolysis of lumbar region Lumbar pars defect Dary Herrera DO [address] [place] [address] Phone: tel: fax: [facility], [address] [place]ott [address] [place] [address] Phone: tel: fax: Referral ID Status Reason Start Date Expiration Date V isits Requested Visits Authorized [id number] Closed Specialty Services Required 02/01/2024 01/31/2025 1 1 Encounter Details Date Type Department Care Team (Late st Contact Info) Description 02/01/2024 Orders Only [place] [facility] [address] [place] [address] Dary Herrera DO [address] [place] [address] Recurrent low back pain (Primary Dx); Spondylolysis of lumbar region L5; Lumbar pars defect; longterm use of drug; Abnormal drug screen Social [...] Description 02/18/2025 1:45 PM EDT Office Visit [place] [facility] [address] [place], [place] [id number] Dary Herrera DO [address] [place] [address] documented as of this encounter Procedures Procedure [...] is not intended to ?? distinguish between jykvm-4-yvzprmytjgcowjvotsov, the predominant ?? form of THC in most herbal or marijuana-based products, and ?? ekqms-0-xazkzoeynzwyxxaovxdq. ??Hydromorphone ?43 ?ng/mg creat ??Norhydrocodone ? 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
--- OUTSIDE RECORDS SUMMARY | 2025-01-29 15:52 | XMS_ITS | Encounter Summary ---
Author Organization [employer] Address [address] 7[address] [place] [address] Care Team Providers Care Software Validation Engineer Name Role Phone Dary Herrera DO Primary Care Provider [phone] Lana Varghese Unavailable Unavailable Encounter Details Date Type Department Care Team (Late st Contact Info) Description 11/20/2023 Orders Only [facility] [address] [place] [address] Dary Herrera DO [address] [place] [address] Restless leg; Paresthesia and pain of both [...] 3:13 PM EST Sexual Orientation Straight 11/15/2022 3 :13 PM EST documented as of this encounter Plan of Treatment Upcoming Encounters Date Type Department Care Team (Late st Contact Info) Description 02/18/2025 1:45 PM EDT Office Visit [facility] [address] [place] [address] Dary Herrera DO [address] [place] [address] documented as of this encounter Procedures Procedure [...] documented as of this encounter Care Teams Software Validation Engineer Relationship Specialty Start Date End Date Dary Herrera DO [address] [place] [address] PCP - General Family Medicine 07/21/23 Lana Varghese Community Health Worker Community Health Worker 08/03/23 documented as of this encounter
--- OUTSIDE RECORDS SUMMARY | 2025-01-29 15:52 | XMS_ITS | Encounter Summary ---
Author Organization [employer] Address [address] [facility] [facility] [address]t [place] [address] Care Team Providers Care Intake Counselor Name Role Phone Dary Herrera DO Primary Care Provider [phone] Lana Varghese Unavailable Unavailable Reason for Visit * Reason Onset Date Comments Med Refill 04/15/2024 Encounter Details Date Type Department Care Team (Late st Contact Info) Description 04/15/2024 Telephone [facility] MED[facility] [address] [place] [address] Dary Herrera DO [address] [place] [address] Med Refill Social History Tobacco Use Types [...] Description 02/18/2025 1:45 PM EDT Office Visit [facility] [address] [place] [address] Dary Herrera DO [address] [place] [address] documented as of this encounter Visit Diagnoses Diagnosis Recurrent low back pain Lumbago documented in this encounter Additional Health Concerns Assessment Noted Time PHQ-9 Depression Total Score: 0 08/14/20 23 3:30 PM EST documented as of this encounter Care Teams Intake Counselor Relationship Specialty Start Date End Date Dary Herrera DO [address] [place] [address] PCP - General Family Medicine 07/21/23 Lana Varghese Community Health Worker Community Health Worker 08/03/23 documented as of this encounter
--- OUTSIDE RECORDS SUMMARY | 2025-01-29 15:52 | XMS_ITS | Encounter Summary ---
Author Organization [employer] Address [address] 7t [place] [address] Care Team Providers Care Rn Perinatal Name Role Phone Dary Herrera DO Primary Care Provider [phone] Lana Varghese Unavailable Unavailable Encounter Details Date Type Department Care Team (Late st Contact Info) Description 10/20/2023 Orders Only [facility] MED[facility] [address] [place] [address] Dary Herrera DO [address] [place] [address] Recurrent low back pain Social History Tobacco [...] 02/18/2025 1:45 PM EDT Office Visit [facility] [address] [place] [address] Dary Herrera DO [address] [place] [address] documented as of this encounter Visit Diagnoses Diagnosis Recurrent low back pain Lumbago documented in this encounter Additional Health Concerns Assessment Noted Time PHQ-9 Depression Total Score: 0 08/14/20 3:30 PM EST documented as of this encounter Care Teams Rn Perinatal Relationship Specialty Start Date End Date Dary Herrera DO [address] [place] [address] PCP - General Family Medicine 07/21/23 Lana Varghese Community Health Worker Community Health Worker 08/03/23 documented as of this encounter
--- OUTSIDE RECORDS SUMMARY | 2025-01-29 15:52 | XMS_ITS | Encounter Summary ---
Author Organization [employer] Address [address] 7[address] [place] [address] Care Team Providers Care Harbor Pilot Name Role Phone Dary Herrera DO Primary Care Provider [phone] Lana Varghese Unavailable Unavailable Reason for Visit * Reason Onset Date Comments Med Refill 10/12/2023 Encounter Details Date Type Department Care Team (Late st Contact Info) Description 10/12/2023 Refill [place] [facility] [address] [place] [address] Dary Herrera DO [address] [place] [address] Recurrent low back pain Social History Tobacco [...] Description 02/18/2025 1:45 PM EDT Office Visit [facility] [address] [place] [address] Dary Herrera DO [address] [place] [address] documented as of this encounter Visit Diagnoses Diagnosis Recurrent low back pain Lumbago documented in this encounter Additional Health Concerns Assessment Noted Time PHQ-9 Depression Total Score: 0 08/14/20 3:30 PM EST documented as of this encounter Care Teams Harbor Pilot Relationship Specialty Start Date End Date Dary Herrera DO [address] [place] [address] PCP - General Family Medicine 07/21/23 Lana Varghese Community Health Worker Community Health Worker 08/03/23 documented as of this encounter
--- OUTSIDE RECORDS SUMMARY | 2025-01-29 15:52 | XMS_ITS | Encounter Summary ---
Author Organization [employer] Address [address] 7[address] [place] [address] Care Team Providers Care Cleaner And Trimmer Name Role Phone Dary Herrera Primary Care Provider [phone] Lana Varghese Unavailable Unavailable Encounter Details Date Type Department Care Team (Late st Contact Info) Description 02/19/2024 Orders Only [facility] MED[facility] [address] [place] [address] ProviderJessica MD Social History Tobacco Use Types [...] 02/18/2025 1:45 PM EDT Office Visit [place] [facility] [address] [place] [address] Dary Herrera DO [address] [place] [address] documented as of this encounter Procedures Procedure [...] documented as of this encounter Care Teams Cleaner And Trimmer Relationship Specialty Start Date End Date Dary Herrera DO [address] [place] [address] PCP - General Family Medicine 07/21/23 Lana Varghese Community Health Worker Community Health Worker 08/03/23 documented as of this encounter
--- OUTSIDE RECORDS SUMMARY | 2025-01-29 15:52 | XMS_ITS | Encounter Summary ---
Author Organization [employer] Address [address] 7[address] [place] [address] Care Team Providers Care Entry Level Electrical Engineer Name Role Phone Dary Herrera DO Primary Care Provider [phone] Lana Varghese Unavailable Unavailable Encounter Details Date Type Department Care Team (Late st Contact Info) Description 11/08/2023 Orders Only [facility] MED[facility] [address] [place] [address] Dary Herrera DO [address] [place] [address] Social History Tobacco Use Types Packs/Day Years [...] the past 12 months, has t he [employer], gas, oil or water [employer] threatened to shut off services in your [...] 1:45 PM EDT Office Visit [facility] [address] [place] [address] Dary Herrera DO [address] [place] [address] documented as of this encounter Visit Diagnoses Not on filedocumented in this encounter Additional Health Concerns Assessment Noted Time PHQ-9 Depression Total Score: 0 08/14/20 3:30 PM EST documented as of this encounter Care Teams Entry Level Electrical Engineer Relationship Specialty Start Date End Date Dary Herrera DO [address] [place] [address] PCP - General Family Medicine 07/21/23 Lana Varghese Community Health Worker Community Health Worker 08/03/23 documented as of this encounter
--- OUTSIDE RECORDS SUMMARY | 2025-01-29 15:52 | XMS_ITS | Encounter Summary ---
Author Organization [employer] Address [address] [place] [address] Care Team Providers Care Chain Maker Hand Name Role Phone Dary Herrera DO Primary Care Provider [phone] Lana Varghese Unavailable Unavailable Reason for Visit * Reason Onset Date Comments Med Refill 04/08/2024 Encounter Details Date Type Department Care Team (Late st Contact Info) Description 04/08/2024 Refill [place] [facility] [address] [place] [address] Dary Herrera DO [address] [place] [address] Recurrent low back pain Social History Tobacco [...] 02/18/2025 1:45 PM EDT Office Visit [facility] [address] [place] [address] Dary Herrera DO [address] [place] [address] documented as of this encounter Visit Diagnoses Diagnosis Recurrent low back pain Lumbago documented in this encounter Additional Health Concerns Assessment Noted Time PHQ-9 Depression Total Score: 0 08/14/20 23 3:30 PM EST documented as of this encounter Care Teams Chain Maker Hand Relationship Specialty Start Date End Date Dary Herrera DO [address] [place] [address] PCP - General Family Medicine 07/21/23 Lana Varghese Community Health Worker Community Health Worker 08/03/23 documented as of this encounter
--- OUTSIDE RECORDS SUMMARY | 2025-01-29 15:52 | XMS_ITS | Encounter Summary ---
Author Organization [employer] Address [address] 7t [place] [address] Care Team Providers Care Fitter Helper Name Role Phone Dary Herrera DO Primary Care Provider [phone] Lana Varghese Unavailable Unavailable Reason for Visit * Reason Onset Date Comments Can not get ahold of patient 01/29/2025 Encounter Details Date Type Department Care Team (Late st Contact Info) Description 01/29/2025 Telephone [facility] MED[facility] [address] [place] [address] Dary Herrera DO [address] [place] [address] Can not get ahold of patient Social [...] reports he is seeing pain management at [facility]. Had OV January 16 and today January 30. Had an MRI at [facility] in January as well. Pt states he called [facility] pain management and canceled his appointment [...] medications. I asked pt to make sure [facility] has PCP info and for them to send all his records to his PCP. TE to HIM to get [facility] office notes and MRI report. [...] 11:15 AM EDT Manuela, a nurse from [facility] pain management left VM on patient explaining that she can not get incontact with the patient. She has tried to call him on 01/07 and today, and left a message the firsttime, second time his mailbox was full, he has not contacted her in response. He was referred to physiatry at [facility] and no showed that appt 12/17. She just wants to let [facility] know that they cannot get ahold of him. With any question call back [phone] documented in this encounter Plan of Treatment Upcoming Encounters Date Type Department Care Team (Late st Contact Info) Description 02/18/2025 1:45 PM EDT Office Visit [place] [facility] [address] [place] [address] Dary Herrera DO [address] [place] [address] documented as of this encounter Visit Diagnoses Not on filedocumented in this encounter Additional Health Concerns Assessment Noted Time PHQ-9 Depression Total Score: 0 08/14/20 23 3:30 PM EST documented as of this encounter Care Teams Fitter Helper Relationship Specialty Start Date End Date Dary Herrera DO [address] [place] [address] PCP - General Family Medicine 07/21/23 Lana Varghese Community Health Worker Community Health Worker 08/03/23 documented as of this encounter
== END 2025-01-29 15:12 | disposition home or self-care (01) ==
LOC: HO.XRAY 15:11
PROVIDERS: PCP Family Medicine; Visit Provider Registered Nurse Emergency
DX: M47.816 Spondylosis without myelopathy or radiculopathy, lumbar region (principal)
CPT/HCPCS: 72114; 99212

== ENCOUNTER → 2025-01-29 15:54 | Outpatient (BNV) | payer MEDICAID, SELFPAY | PROVIDERS: PCP Family Medicine; Visit Provider Radiology Diagnostic Radiology | DX: M47.816 Spondylosis without myelopathy or radiculopathy, lumbar region (principal) | CPT/HCPCS: 72114 ==

== ENCOUNTER 2025-04-01 06:25 | Outpatient (REF) | payer MEDICAID, SELFPAY ==
--- OUTSIDE RECORDS SUMMARY | 2025-04-01 06:28 | XMS_ITS | Encounter Summary ---
Author Organization [employer] Address [address] [facility] 7t [place] [address] Care Team Providers Care Real Estate Sales Agent Name Role Phone Dary Herrera DO Primary Care Provider [phone] Lana Vraghese Unavailable Unavailable Reason for Visit * Reason Onset Date Comments Med Refill 04/08/2024 Encounter Details Date Type Department Care Team (Late st Contact Info) Description 04/08/2024 Refill [facility] [address] [place] [address] Dary Herrera DO 73 [place] [address] Recurrent low back pain Social History Tobacco [...] as of this encounter Plan of Treatment Not on file documented as of this encounter Visit Diagnoses Diagnosis Recurrent low back pain Lumbago documented in this encounter Additional Health Concerns Assessment Noted Time PHQ-9 Depression Total Score: 0 08/14/20 23 3:30 PM EST documented as of this encounter Care Teams Real Estate Sales Agent Relationship Specialty Start Date End Date Dary Herrera DO [address] [place] [address] PCP - General Family Medicine 07/21/23 Lana Varghese Community Health Worker Community Health Worker 08/03/23 documented as of this encounter
== END 2025-04-01 06:26 | disposition home or self-care (01) ==
LOC: CF 06:25
PROVIDERS: Visit Provider Anesthesiology
DX: Z13.89 Encounter for screening for other disorder (principal)

== ENCOUNTER 2025-06-10 06:09 | Outpatient (REF) | payer MEDICAID, SELFPAY ==
--- NOTE | ~2025-06-10 | FL_ITS ---
EXAMINATION: FL GUIDANCE ONLY HISTORY: M47.816 - Spondylosis without myelopathy or radiculopathy, lumbar region COMPARISON: None available. TECHNIQUE: Fluoroscopy time: 54 seconds. Cumulative Dose: 7.7 mGy. DAP: 237.54 uGym2 Images: 12. FINDINGS: Fluoroscopic spot films of the lumbar spine in the AP projection demonstrate needles and contrast material in the regions of the bilateral L3-4, L4-5, and L5-S1 facet joints. FL/FL guidance in treatment room IMPRESSION: Fluoroscopy during procedure. Please see procedure report for additional information. Electronically signed by: Howard Hoff MD 06/12/2025 07:31 AM EDT
--- OUTSIDE RECORDS SUMMARY | 2025-06-10 06:13 | XMS_ITS | Encounter Summary ---
Author Organization [employer] Address [address] [facility] [address] 7t [place] [address] Care Team Providers Care Juvenile Justice Specialist Name Role Phone Dary Herrera DO Primary Care Provider [phone] Lana Varghese Unavailable Unavailable Marianne Lynn Unavailable Encounter Details Date Type Department Care Team (Late st Contact Info) Description 12/30/2024 Orders Only [facility] [address] [place] [address] Dary Herrera DO 73 [place] [address] Social History Tobacco Use Types Packs/Day Years Used Date Smoking Tobacco: Every Day Cigarettes 1 1.7 Started: 2023 Passive Smoke Exposure: Current Smokeless [...] on file documented as of this encounter Procedures Procedure [...] documented as of this encounter Care Teams Juvenile Justice Specialist Relationship Specialty Start Date End Date Dary Herrera DO [address] [place] [address] PCP - General Family Medicine 07/21/23 Lana Varghese Community Health Worker Community Health Worker 08/03/23 Marianne Lynn 04/08/25 documented as of this encounter
--- OUTSIDE RECORDS SUMMARY | 2025-06-10 06:13 | XMS_ITS | Encounter Summary ---
Author Organization [employer] Address [address] [facility] [address] Floor [address] Care Team Providers Care Engineering Equipment Operator Name Role Phone Dary Herrera DO Primary Care Provider [phone] Lana Varghese Unavailable Unavailable Marianne Lynn Unavailable Encounter Details Date Type Department Care Team (Late st Contact Info) Description 02/28/2024 Orders Only [place] [facility] [address] [place] [address] Dary Herrera DO 73 [place] [address] Social History Tobacco Use Types Packs/Day Years [...] documented as of this encounter Care Teams Engineering Equipment Operator Relationship Specialty Start Date End Date Dary Herrera DO [address] [place] [address] PCP - General Family Medicine 07/21/23 Lana Varghese Community Health Worker Community Health Worker 08/03/23 Marianne Lynn 04/08/25 documented as of this encounter
--- OUTSIDE RECORDS SUMMARY | 2025-06-10 06:13 | XMS_ITS | Encounter Summary ---
Author Organization [employer] Address [address] [facility] [address] 7t [place] [address] Care Team Providers Care Fats And Oils Loader Name Role Phone Dary Herrera DO Primary Care Provider [phone] Lana Varghese Unavailable Unavailable Marianne Lynn Unavailable Encounter Details Date Type Department Care Team (Late st Contact Info) Description 01/30/2025 Orders Only [place] [facility] [address] [place] [address] Dary Herrera DO 73 [place] [address] Social History Tobacco Use Types Packs/Day Years [...] Procedure Name Priority Date/Time Associated Diagnosis Comments MRI LUMBAR SPINE WO CONTRAST Routine 01/16/2025 9:26 AM EDT documented in this encounter Results * MRI LUMBAR SPINE WO CONTRAST (01/16/2025 9:26 AM EDT) Anatomical Region Laterality Modality Magnetic Resonan ce Dary Herrera DO IMG MRI PROCEDURES Final Resul t documented in this encounter Visit Diagnoses Not on filedocumented in this encounter Additional Health Concerns Assessment Noted Time PHQ-9 Depression Total Score: 0 08/14/20 3:30 PM EST documented as of this encounter Care Teams Fats And Oils Loader Relationship Specialty Start Date End Date Dary Herrera DO [address] [place] [address] PCP - General Family Medicine 07/21/23 Lana Varghese Community Health Worker Community Health Worker 08/03/23 Marianne Lynn 04/08/25 documented as of this encounter
--- OUTSIDE RECORDS SUMMARY | 2025-06-10 06:13 | XMS_ITS ---
Author Organization [employer] Address [address] [facility] 7t [place] [address] Care Team Providers Care Electronic Test Technician Name Role Phone Dary Herrera DO Primary Care Provider [phone] Lana Varghese Unavailable Unavailable Marianne Lynn Unavailable CM Complex Status:Enrolled (Active) Start date:04/08/2025 Enrollment date:05/05/2025 Enrollment reason:ADT Feed Case Team Name Relationship Phone Marianne Lynn(Responsible Staff) [phone] Continued Care and Services Coordination
--- OUTSIDE RECORDS SUMMARY | 2025-06-10 06:13 | XMS_ITS | Encounter Summary ---
Author Organization [employer] Address [address] [facility] [address] 7t [place] [address] Care Team Providers Care Procedures Tech Name Role Phone Dary Herrera DO Primary Care Provider [phone] Lana Varghese Unavailable Unavailable Marianne Lynn Unavailable Reason for Visit * Reason Onset Date Comments Med Refill 04/08/2024 Encounter Details Date Type Department Care Team (Late st Contact Info) Description 04/08/2024 Refill [facility] 73 [place] [address] Dary Herrera DO 73 [place] [address] Recurrent low back pain Social History Tobacco [...] documented as of this encounter Care Teams Procedures Tech Relationship Specialty Start Date End Date Dary Herrera DO 73 [place] [address] PCP - General Family Medicine 07/21/23 Lana Varghese Community Health Worker Community Health Worker 08/03/23 Marianne Lynn 04/08/25 documented as of this encounter
--- OUTSIDE RECORDS SUMMARY | 2025-06-10 06:13 | XMS_ITS | Encounter Summary ---
Author Organization [employer] Address [address] [facility] [address] 7t [place] [address] Care Team Providers Care Dope Pourer Name Role Phone Dary Herrera DO Primary Care Provider [phone] Lana Varghese Unavailable Unavailable Marianne Lynn Unavailable Reason for Visit * Reason Comments Med Refill Encounter Details Date Type Department Care Team (Late st Contact Info) Description 06/09/2025 Refill [facility] 73 [place] [address] Dary Herrera DO 73 [place] [address] Recurrent low back pain Social History Tobacco [...] Answer Date Recorded Patient Health Questionnaire-9 Score 12 05/05/2025 Patient Health Questionnaire-9 Score 12 05/05/2025 Last PHQ-9: Questionnaire Data Not on file 0 05/05/2025 Housing Stability Answer Date Recorded What is [...] Answer Date Recorded Patient Health Questionnaire-2 Score 4 05/05/2025 Internet Access Answer Date Recorded Internet Access [...] * Telephone Encounter - Yaron Sanchez - 06/09/2025 2:43 PM EDT Refill Gabapentin 300 mg caps [facility] Last Fill Date:05/16/25 [facility] Sold Date:05/16/25 #180/30 d Last OV:02/18/25 Next OV:N/A CSA Date:12/12/24 Last Utox:02/18/25 DNF Date:06/15/25 documented in this encounter Plan of Treatment Not on file documented as of this encounter Visit Diagnoses Diagnosis Recurrent low back pain Lumbago documented in this encounter Additional Health Concerns Assessment Noted Time PHQ-9 Depression Total Score: 12 025 1:44 PM EDT documented as of this encounter Care Teams Dope Pourer Relationship Specialty Start Date End Date Dary Herrera DO [address] [place] [address] PCP - General Family Medicine 07/21/23 Lana Varghese Community Health Worker Community Health Worker 08/03/23 Marianne Lynn 04/08/25 documented as of this encounter
--- OUTSIDE RECORDS SUMMARY | 2025-06-10 06:13 | XMS_ITS | Encounter Summary ---
Author Organization [employer] Address [address] [facility] [address] 7t [place] [address] Care Team Providers Care Card Doffer Name Role Phone Dary Herrera DO Primary Care Provider [phone] Lana Varghese Unavailable Unavailable Marianne Lynn Unavailable Encounter Details Date Type Department Care Team (Late st Contact Info) Description 11/08/2023 Orders Only [facility] [address] [place] [address] Dary Herrera DO 73 [place] [address] Social History Tobacco Use Types Packs/Day Years [...] documented as of this encounter Care Teams Card Doffer Relationship Specialty Start Date End Date Dary Herrera DO [address] [place] [address] PCP - General Family Medicine 07/21/23 Lana Varghese Community Health Worker Community Health Worker 08/03/23 Marianne Lynn 04/08/25 documented as of this encounter
--- OUTSIDE RECORDS SUMMARY | 2025-06-10 06:13 | XMS_ITS | Encounter Summary ---
Author Organization [employer] Address [address] [facility] [address] 7t [place] [address] Care Team Providers Care Correctional Nurse Name Role Phone Dary Herrera DO Primary Care Provider [phone] Lana Varghese Unavailable Unavailable Marianne Lynn Unavailable Encounter Details Date Type Department Care Team (Late st Contact Info) Description 11/20/2023 Orders Only [facility] 73 [place] [address] Dary Herrera DO 73 [place] [address] Restless leg; Paresthesia and pain of both [...] encounter Results * Nerve conduction test (11/15/2023) us Dary Herrera DO NEUROLOGY ORDERABLES Final Res ult documented in this encounter Visit Diagnoses Diagnosis Restless leg Restless legs syndrome (RLS) Paresthesia and pain of both upper extremities documented in this encounter Additional Health Concerns Assessment Noted Time PHQ-9 Depression Total Score: 0 08/14/20 3:30 PM EST documented as of this encounter Care Teams Correctional Nurse Relationship Specialty Start Date End Date Dary Herrera DO [address] [place] [address] PCP - General Family Medicine 07/21/23 Lana Varghese Community Health Worker Community Health Worker 08/03/23 Marianne Lynn 04/08/25 documented as of this encounter
--- OUTSIDE RECORDS SUMMARY | 2025-06-10 06:13 | XMS_ITS | Encounter Summary ---
Author Organization [employer] Address [address] [facility] [address] 7t [place] [address] Care Team Providers Care Day Light Relief Operator Name Role Phone Dary Herrera DO Primary Care Provider [phone] Lana Varghese Unavailable Unavailable Marianne Lynn Unavailable Encounter Details Date Type Department Care Team (Late st Contact Info) Description 11/09/2023 Orders Only [facility] [address] [place] [address] Dary Herrera DO 73 [place] [address] Social History Tobacco Use Types Packs/Day Years [...] documented as of this encounter Care Teams Day Light Relief Operator Relationship Specialty Start Date End Date Dheeraj Herrerara [address] [place] [address] PCP - General Family Medicine 07/21/23 Lana Varghese Community Health Worker Community Health Worker 08/03/23 Marianne Lynn 04/08/25 documented as of this encounter
--- OUTSIDE RECORDS SUMMARY | 2025-06-10 06:13 | XMS_ITS | Encounter Summary ---
Author Organization [facility] [employer] Address [address] [facility] [address] 7t [place] [address] Care Team Providers Care Professor Of Rhetoric Name Role Phone Dary Herrera DO Primary Care Provider [phone] Lana Varghese Unavailable Unavailable Marianne Lynn Unavailable Encounter Details Date Type Department Care Team (Late st Contact Info) Description 10/20/2023 Orders Only [facility] 73 [place] [address] Dary Herrera DO 73 [place] [address] Recurrent low back pain Social History Tobacco [...] documented as of this encounter Care Teams Professor Of Rhetoric Relationship Specialty Start Date End Date Dary Herrera DO [address] [place] [address] PCP - General Family Medicine 07/21/23 Lana Varghese Community Health Worker Community Health Worker 08/03/23 Marianne Lynn 04/08/25 documented as of this encounter
--- OUTSIDE RECORDS SUMMARY | 2025-06-10 06:13 | XMS_ITS | Clinical Summary ---
Author Organization [employer] Address 75 [facility] 7t [place] [address] Care Team Providers Care Survey Compiler Name Role Phone Dary Herrera Primary Care Provider [phone] Lana Varghese Unavailable Unavailable Marianne Lynn Unavailable Allergies Active Allergy Reactions Criticality Noted Date Comments Penicillin G Hives Low 11/17/2022 Sulfa Antibiotics Hives Low 11/17/2022 Medications albuterol (ProAir HFA) 108 (90 Base) MCG/ACT inhalerIndicat ions:COVID-19, Shortness of breath Inhale 2 puffs every 4 (four) hours if needed for wheezing or shortness of breath. 8.5 g 10/25/19 25 026 Active methocarbamol (Robaxin) 500 MG tabletIndicati ons:Recurrent low back pain TAKE 3 TABLETS BY MOUTH EVERY 8 HOURS NEEDED FOR MUSCLE SPASM 135 tablet 01/25/20 25 Active Additional Information Patient not taking.Reported on 05/08/2025 gabapentin (Neurontin) 300 MG capsuleIndicat ions:Recurrent low back pain TAKE 2 CAPSULES BY MOUTH 3 TIMES DAILY. 180 capsule 5 06/09/20 25 Active gabapentin (Neurontin) 300 MG capsuleIndicat ions:Recurrent low back pain Take 2 capsules (600 mg) by mouth 3 times daily. Do not start before April 12, 2025. 180 capsule 04/12/20 25 025 Discontinued gabapentin (Neurontin) 300 MG capsuleIndicat ions:Recurrent low back pain TAKE 2 CAPSULES (600 MG) BY MOUTH 3 TIMES DAILY. DO NOT START BEFORE APRIL 12, 2025. 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 He states he did not wash them [...] molar dental extraction by [place] in [facility] on 10 06 23 presents today requesting [...] but apparently only filled the Tramadol. [employer] database referenced and confirmed. Pt agrees to [...] a neurosurgeon on Monday this week in [place] (see HPI, Dandre cannot recall the name of the specialist but states he is at [address] in [place]. He states the neurosurgeon told him he [...] Tonight we encouraged Dandre to call the [facility] tomorrow to make that overdue [...] pain with radiculopathy. Orthopedics referral entered by MACHINE PAN GREASER at last same-day visit, pending. Preliminary X [...] time . Discussed with pt recommendation for demo event specialist exam and also discussed red flag [...] established with PCP JOHN PAUL Bassett at [place] on schedule tonight for telehealth visit reporting that his therapist Shelia Ortiz at [facility] recommended he ask his PCP [...] therapist share with his PCP/chart here at [place] for future visit. Resolved Problems Problem Noted Date Diagnosed Date Resolved Date Opioid dependence with current use 04/16/2024 02/18/2025 Overview (04/16/2024): In process of planned taper with his PCP, expressing some anxiety about symptoms experienced recently over the last few weeks that he is concerned are opioid withdrawal. Discussed in detail with Dandre and reassured no red flag symptoms of this at fernandez's visit. Encouraged to eat lightly and regularly [...] treatment/taper. No further questions/concerns at visit conclusion. Abuse of analgesics 08/14/2023 10/17/19 24 Overview (10/17/2023): In the past has taken gabapentin in excess of 4500mg daily, and ibuprofen 3600 mg daily, both well above prescribed levels. Assessment & Plan (08/28/2023 11:43 PM EST): At prior visit patient endorsed taking gabapentin 300mg, 3 tabs (900 mg) q4 hours and ibuprofen 600mg, 2 tabs (1200 mg) [id number], due to perceived lack of efficacy of [...] Encounters Date Type Department Care Team Description 06/09/2025 [facility] [address] [place] [address] Dary Herrera DO Recurrent low back pain 06/06/2025 Patient Outreach [facility] (C3) Department [address] [place] [phone] Marianne Lynn 05/28/2025 Patient Outreach [facility] ([facility]) Department [address] [place] [phone] Lynn, Marianne 05/27/2025 [facility] ([facility] Department [address] [place] [address] Lynn, Marianne 05/15/2025 [facility] [address] [place] [address] Dary Herrera DO Recurrent low back pain 05/08/2025 Patient Outreach [facility] ([facility] Department [address] [place] [address] Lynn, Marianne 05/06/2025 Patient Outreach [facility] ([facility] Department [address] [place] [address] [facility] 05/05/2025 Patient Outreach [facility] ([facility] Department [address] [place] [address] Lynn, Marianne 04/24/2025 Telephone [place] [facility] [address] [place] [address] Dary Herrera DO ER Follow-up 04/14/2025 Patient Outreach [facility] Department [address] [place] [address] Lynn, Marianne 04/11/2025 [facility] [address] [place] [address] Dary Herrera DO Recurrent low back pain 04/08/2025 Patient Outreach [facility] ([facility]) Department [address] [place] [address] Shane, Marianne 04/07/2025 Telephone [place] [facility] [address] [place] [address] Dary Herrera DO ER Follow-up from Last 3 Months Immunizations Immunization Administration [...] the past 12 months, has t he [employer], oil or water [employer] threatened to shut off services in your [...] Sign Reading Time Taken Comments Blood Pressure 110/69 02/18/2025 1:57 PM EDT Pulse 84 02/18/2025 1:57 PM EDT Temperature 36.7 C (98.1 F) 02/18/2025 1:57 PM EDT Respiratory Rate 16 01/06/2025 2:26 PM EDT Oxygen Saturation 97% 02/18/2025 1:57 PM EDT Inhaled Oxygen Concentration - - Weight 72.4 kg (159 lb 9.6 oz) 02/18/2025 1:57 P M EDT Height 172.7 cm (5' 8 ) 02/18/2025 1:57 PM EDT Body Mass Index 24.27 02/18/2025 1:57 PM EDT Plan of Treatment Health Maintenance Due Date Last Done Comments HPV Vaccines (1 - Male 3-dose series) 2005 Pneumococcal Vaccine: Pediatrics (0 to 5 Years) and At-Risk Patients (6 to 49) Years (1 of 2 - PCV) 2009 COVID-19 Vaccine (1 - season) 2025 Influenza Vaccine (#1) 2025 07/22/2015 Alcohol/Substance Use Screening 10/25/2025 10/25/2024 Disability Screening 10/25/2025 10/25/2024 Family Planning (PISQ) 10/25/2025 10/25/2024 SDOH Screening 10/25/2025 10/25/2024 Depression Monitoring 11/05/2025 05/05/2025, 025 Tobacco Screening 02/18/2026 02/18/2025 Lipid Panel 07/21/2028 07/21/2023 DTaP/Tdap/Td Vaccines (8 [...] 03/19/2013 Hepatitis C Screening Completed 08/25/2021, 021 Hepatitis A Vaccines Aged Out No long [...] Procedure Name Priority Date/Time Associated Diagnosis Comments LIPID PANEL, STANDARD Routine 07/21/2023 9:08 AM EDT Lipid screening [facility] HISTORICAL HEPATITIS C ANTIBODY TEST Routine 08/25/2021 3:21 PM EST HIV 1/2 ANTIGEN/ANTIBODY, FOURTH GENERATION W/RFL Routine 08/25/2021 3:21 PM EST from Last 3 Months or Most Recently Relevant to Health Maintenance Results * (ABNORMAL) Lipid panel (07/21/2023 9:08 AM EDT) Cholesterol, Total 166 (<200) MG/DL [facility] Triglyceride (mg/dL) in Serum/Plasma 205(H) (<150) MG/DL [facility] HDL Cholesterol 40 (>39) MG/DL [facility] LDL Cholesterol, Calculated 85 (0-130) MG/DL [facility] Non HDL Chol. (LDL+VLDL) 126 (<160) MG/DL [facility] Comment: Testing performed or reported by [facility], a Service of [facility], [address] [place] [address] José eDluna MD, [employer] [facility]# [id number] Blood Venous blood specimen / Unknown 07/21/2023 9:08 AM EDT 07/21/2023 9:11 AM EDT Dary Herrera DO LAB BLOOD ORDERABLES Final Res ult [facility] [address] [place] [id number] * -Hepatitis C Antibody Test (08/25/2021 3:21 PM EST) ANTI-HEPATITIS C NEGATIVE (NEG) [facility] Comment: Reference range: Negative This test was performed on the [employer] Automatic Clipper immunoassay system. 08/25/2021 3:21 PM EST Deandre Delatorre MACHINE PAN GREASER HISTORICAL/NON ORDERABLE LAB S Final Result [facility] [place] [address], * -HIV AB-AG 4TH GENERATION (08/25/2021 3:21 PM EST) RESULT 4TH GEN HIV AB-AG NEGATIVE (NEG) [facility] Comment: Negative for antibodies to HIV 1 and HIV 2 and P24 antigen. Reference range: Negative Additional note: Written patient authorization is required for each separate release of this test result. This test was performed on the [employer] Automatic Clipper immunoassay system. 08/25/2021 3:21 PM EST us Deandre Delatorre MACHINE PAN GREASER LAB BLOOD ORDERABLES Final R esult [facility] [address] from Last 3 Months or Most Recently Relevant to Health Maintenance Insurance [facility] C3 Care Teams Survey Compiler Relationship Specialty Start Date End Date Dary Herrera [address] [place] [address] PCP - General Family Medicine 07/21/23 Lana Varghese Community Health Worker Community Health Worker 08/03/23 Marianne Lynn 04/08/25
--- OUTSIDE RECORDS SUMMARY | 2025-06-10 06:13 | XMS_ITS | Encounter Summary ---
Author Organization [employer] Address [address] [facility] [address] 7t [place] [address] Care Team Providers Care Cuprous Chloride Operator Name Role Phone Dary Herrera DO Primary Care Provider [phone] Lana Varghese Unavailable Unavailable Marianne Lynn Unavailable Reason for Visit * Reason Onset Date Comments Med Refill 10/12/2023 Encounter Details Date Type Department Care Team (Late st Contact Info) Description 10/12/2023 Refill [facility] [address] [place] [address] Dary Herrera DO [address] [place] [address] Recurrent low back pain Social History Tobacco [...] documented as of this encounter Care Teams Cuprous Chloride Operator Relationship Specialty Start Date End Date Dary Herrera DO [address] [place] [address] PCP - General Family Medicine 07/21/23 Lana Varghese Community Health Worker Community Health Worker 08/03/23 Marianne Lynn 04/08/25 documented as of this encounter
--- OUTSIDE RECORDS SUMMARY | 2025-06-10 06:13 | XMS_ITS | Encounter Summary ---
Author Organization [employer] Address [address] 7[address] [place] [address] Care Team Providers Care Life Science Teacher Name Role Phone Dary Herrera DO Primary Care Provider [phone] Lana Varghese Unavailable Unavailable Marianne Lynn Unavailable Encounter Details Date Type Department Care Team (Late st Contact Info) Description 01/31/2025 Orders Only [facility] [address] [place] [address] Dary Herrera DO [address] [place] [address] Social History Tobacco Use Types Packs/Day Years [...] Date/Time Associated Diagnosis Comments XR LUMBAR SPINE 6V W BENDING Routine 01/29/2025 11:09 AM EDT documented in this encounter Results * XR LUMBAR SPINE 6V W BENDING (01/29/2025 11:09 AM EDT) Anatomical Region Laterality Modality Abdomen Radiographic Clari ging Dary Herrera DO IMG XR PROCEDURES Final Result documented in this encounter Visit Diagnoses Not on filedocumented in this encounter Additional Health Concerns Assessment Noted Time PHQ-9 Depression Total Score: 0 08/14/20 23 3:30 PM EST documented as of this encounter Care Teams Life Science Teacher Relationship Specialty Start Date End Date Dary Herrera DO [address] [place] [address] PCP - General Family Medicine 07/21/23 Lana Varghese Community Health Worker Community Health Worker 08/03/23 Marianne Lynn 04/08/25 documented as of this encounter
--- OUTSIDE RECORDS SUMMARY | 2025-06-10 06:13 | XMS_ITS | Encounter Summary ---
Author Organization [employer] Address [address] 7[address] [place] [address] Care Team Providers Care Senior Warehouse Clerk Name Role Phone Dary Herrera DO Primary Care Provider [phone] Lana Varghese Unavailable Unavailable Marianne Lynn Unavailable Reason for Visit * Reason Onset Date Comments Med Refill 05/06/2024 Encounter Details Date Type Department Care Team (Late st Contact Info) Description 05/06/2024 Refill [place] [facility] [address] [place] [address] Dary Herrera DO [address] [place] [address] Recurrent low back pain Social History Tobacco [...] encounter Miscellaneous Notes * Telephone Encounter - BETY Manning - 05/06/2024 12:32 PM EDT [facility] Last fill Date:04/30/24 Last OV:04/16/24 Next OV:N/A Last UTOX:02/06/24 CSA Date:09/25/23 DNF Date:05/07/24 documented in this encounter Plan of Treatment Not on file documented as of this encounter Visit Diagnoses Diagnosis Recurrent low back pain Lumbago documented in this encounter Additional Health Concerns Assessment Noted Time PHQ-9 Depression Total Score: 0 08/14/20 23 3:30 PM EST documented as of this encounter Care Teams Senior Warehouse Clerk Relationship Specialty Start Date End Date Dary Herrera DO [address] [place] [id number] PCP - General Family Medicine 07/21/23 Lana Varghese Community Health Worker Community Health Worker 08/03/23 Marianne Lynn 04/08/25 documented as of this encounter
--- OUTSIDE RECORDS SUMMARY | 2025-06-10 06:13 | XMS_ITS | Encounter Summary ---
Author Organization [employer] Address [address] 7[address] [place] [address] Care Team Providers Care Sas Programmer Name Role Phone Dary Herrera DO Primary Care Provider [phone] Lana Varghese Unavailable Unavailable Marianne Lynn Unavailable Reason for Visit * Reason Onset Date Comments Med Refill 04/15/2024 Encounter Details Date Type Department Care Team (Late st Contact Info) Description 04/15/2024 Telephone [place] [facility] [address] [place] [address] Dary Herrera DO [address] [place] [address] Med Refill Social History Tobacco Use Types [...] Miscellaneous Notes * Telephone Encounter - Dary KingDO - 04/16/2024 1:31 PM EDT New Medications [...] documented as of this encounter Care Teams Sas Programmer Relationship Specialty Start Date End Date Dary Herrera DO [address] [place] [id number] PCP - General Family Medicine 07/21/23 Lana Varghese Community Health Worker Community Health Worker 08/03/23 Marianne Lynn 04/08/25 documented as of this encounter
--- OUTSIDE RECORDS SUMMARY | 2025-06-10 06:13 | XMS_ITS | Encounter Summary ---
Author Organization [employer] [facility] Address [address] [facility] [facility] 7t [place] [address] Care Team Providers Care Commercial Drone Software Developer Name Role Phone Dary Herrera Primary Care Provider [phone] Lana Varghese Unavailable Unavailable Marianne Lynn Unavailable Encounter Details Date Type Department Care Team ([facility] st Contact Info) Description 06/06/2025 Patient Outreach [facility] Care [facility] (C3) Department [address] [facility] [address] [place] [phone] Marianne Lynn Social History Tobacco Use Types Packs/Day Years [...] documented as of this encounter Care Teams Commercial Drone Software Developer Relationship Specialty Start Date End Date Dary Herrera [address] [place] [address] PCP - General Family Medicine 07/21/23 Lana Varghese Community Health Worker Community Health Worker 08/03/23 Marianne Lynn 04/08/25 documented as of this encounter
--- OUTSIDE RECORDS SUMMARY | 2025-06-10 06:13 | XMS_ITS | Encounter Summary ---
Author Organization [employer] Address [address] [facility] 7t [place] [address] Care Team Providers Care Gas Regulator Repairer Helper Name Role Phone Dary Herrera DO Primary Care Provider [phone] Lana Varghese Unavailable Unavailable Marianne Lynn Unavailable Reason for Referral * Consultation (Routine) - Closed Specialty Diagnoses / Procedures Referred By Contac t Referred To Contact Pain Medicine Diagnoses Recurrent low back pain Spondylolysis of lumbar region Lumbar pars defect Dary Herrera DO [address] [place] [address] Phone: tel: fax: [facility], [address] [place], [place] Phone: tel: fax: Referral ID Status Reason Start Date Expiration Date V isits Requested Visits Authorized [id number] Closed Specialty Services Required 02/01/2024 01/31/2025 1 1 Encounter Details Date Type Department Care Team (Late st Contact Info) Description 02/01/2024 Orders Only [place] [facility] [address] [place] [address] Dary Herrera DO [address] [place] [address] Recurrent low back pain (Primary Dx); Spondylolysis of lumbar region L5; Lumbar pars defect; residential use of drug; Abnormal drug screen Social [...] * Referral to Pain Medicine (01/10/2025) D[facility] OUTPATIENT REFERRAL ORDERABLES Final Result * TOXASSURE (R) SELECT 13 (PRESCRIPTION DRUG MONITORING) (02/06/2024 4:45 PM EDT) Summary Report FINAL [facility] 1 Comment: TOXASSURE SELECT 13 (MW) Test Result Flag Units Drug Present Benzoylecgonine 91 ng/mg creat Benzoylecgonine is a metabolite of cocaine; its presence indicates use of this drug. Source is most commonly illicit, but cocaine is present in some topical anesthetic solutions. Carboxy-THC 7 ng/mg creat Carboxy-THC is a metabolite of tetrahydrocannabinol (THC). Source of THC is most commonly herbal marijuana or marijuana-based products, but THC is also present in a scheduled prescription medication. Trace amounts of THC can be present in hemp and cannabidiol (CBD) products. This test is not intended to distinguish between jcphp-1-vgiudwlemivtvdtxjiyh, the predominant form of THC in most herbal or marijuana-based products, and mtqxk-0-eimmpzaiowmcciiverlv. Hydromorphone 43 ng/mg creat Norhydrocodone 41 ng/mg creat Hydromorphone and norhydrocodone are expected metabolites of hydrocodone. Sources of hydrocodone are scheduled prescription medications. Hydromorphone is also available as a scheduled prescription medication. Interpret results with caution. Trace amounts of hydrocodone and/or hydrocodone metabolites in the presence of large amounts of oxycodone may be due to impurities present in the dosage form. Oxycodone >2933 ng/mg creat Oxymorphone 2202 ng/mg creat Noroxycodone >2933 ng/mg creat Noroxymorphone 2409 ng/mg creat Sources of oxycodone are scheduled prescription medications. Oxymorphone, noroxycodone, and noroxymorphone are expected metabolites of oxycodone. Oxymorphone is also available as a scheduled prescription medication. Test Result Flag Units Ref Range Creatinine 341 mg/dL >=20 Declared Medications: Medication list was not provided. For clinical consultation, please call . Urine 02/06/2024 4:45 PM EDT 02/06/2024 Narrative [facility] 1 - 02/15/2024 8:05 PM EDT Performed at: 01 - [employer] [address] [place] [id number] Design Project Manager: Livier Mak [facility], Phone: [phone] us Dary Herrera DO LAB BLOOD ORDERABLES Final Res ult Performing Organization Address City/State/[facility] Co de Phone Number [facility] 1 documented in this encounter Visit Diagnoses Diagnosis Recurrent low back pain- Primary Lumbago Spondylolysis of lumbar region L5 Lumbosacral spondylosis without myelopathy Lumbar pars defect residential use of drug Abnormal drug screen documented in this encounter Additional Health Concerns Assessment Noted Time PHQ-9 Depression Total Score: 0 08/14/20 23 3:30 PM EST documented as of this encounter Care Teams Gas Regulator Repairer Helper Relationship Specialty Start Date End Date Dary Herrera DO [address] [place] [address] PCP - General Family Medicine 07/21/23 Lana Varghese Community Health Worker Community Health Worker 08/03/23 Marianne Lynn 04/08/25 documented as of this encounter
--- OUTSIDE RECORDS SUMMARY | 2025-06-10 06:13 | XMS_ITS | Encounter Summary ---
Author Organization [employer] Address [address] 7[address] [place] [address] Care Team Providers Care Cryptographic Clerk Name Role Phone Dary Herrera DO Primary Care Provider [phone] Lana Varghese Unavailable Unavailable Marianne Lynn Unavailable Reason for Visit * Reason Comments Med Change Request Encounter Details Date Type Department Care Team (Late st Contact Info) Description 08/14/2023 V[place] [facility] [address] [place] [address] Dary Herrera DO [address] [place] [address] Social History Tobacco Use Types Packs/Day Years [...] Questionnaire-2 Score 0 07/20 3:30 PM EST Sarah Grigsby RMA * Little interest or pleasure in doing things Answer Date of Assessment Author Not at all 08/14/2023 3:30 PM EST Calista, Mi sty, RMA * Feeling down, depressed, or hopeless [...] PM EST Calista, Mi sty, RMA * Thoughts that you would be better off or hurting yourself in some way Answer Date of Assessment Author Not at all 08/14/2023 3:30 PM EST Calista, Mi sty, RMA * Patient Health Questionnaire-9 [...] documented as of this encounter Care Teams Cryptographic Clerk Relationship Specialty Start Date End Date Dary Herrera DO [address] [place] [id number] PCP - General Family Medicine 07/21/23 Lana Varghese Community Health Worker Community Health Worker 08/03/23 Marianne Lynn 04/08/25 documented as of this encounter
--- OUTSIDE RECORDS SUMMARY | 2025-06-10 06:13 | XMS_ITS | Encounter Summary ---
Author Organization [employer] Address [address] 7[address] [place] [address] Care Team Providers Care Bowling Alley Manager Name Role Phone Dary Herrera DO Primary Care Provider [phone] Lana Varghese Unavailable Unavailable Marianne Lynn Unavailable Encounter Details Date Type Department Care Team (Late st Contact Info) Description 02/19/2024 Orders Only [place] [facility] [address] [place] [address] Provider, MD Jessica Social History Tobacco Use Types Packs/Day Years [...] documented as of this encounter Care Teams Bowling Alley Manager Relationship Specialty Start Date End Date Dary Herrera DO [address] [place] [address] PCP - General Family Medicine 07/21/23 Lana Varghese Community Health Worker Community Health Worker 08/03/23 Marianne Lynn 04/08/25 documented as of this encounter
== END 2025-06-10 06:10 | disposition home or self-care (01) ==
LOC: CF 06:09
PROVIDERS: Visit Provider Anesthesiology
DX: M47.816 Spondylosis without myelopathy or radiculopathy, lumbar region (principal)
CPT/HCPCS: 64493; 64494; J2003; J2795; Q9967

== ENCOUNTER 2025-06-10 08:03 | Outpatient (AMB) | payer MEDICAID, SELFPAY ==
[2025-06-10 08:09] VITALS: BP 119/74; PULSE 85; RESP 20; O2SAT 98
--- NOTE | 2025-06-10 08:09 | A.OFFVIS_ITS ---
Vital Signs 06/10/25 08:09 Weight 163 lb BP 119/74 Blood Pressure Location Lt brachial Position Sitting Respiration 20 Pulse 85 Pulse Source Pulse Oximeter Pulse Oximetry (%) 98 Oxygen Delivery Method Room Air Intake Visit Reasons: BILATERAL DIAGNOSTIC L3, L4, DRL5 MBB Senior Accounting Specialist Required: No Allergies Penicillins Allergy (Unknown, Verified 01/29/25 15:16) Anaphylaxis Sulfa (Sulfonamide Antibiotics) Allergy (Unknown, Verified 01/29/25 15:16) Hives [facility] Medical History (Updated 01/10/25 @ 09:51 by Wanda Molina, FREIGHT INSPECTOR, SUPERVISOR CONCRETE STONE FINISHING) Ureteral stent present Intractable pain Hyperglycemia Chronic lower back pain Social History (Updated 01/10/25 @ 09:12 by Elizabeth Melissa) Tobacco use type: Cigarette Cigarettes Per Day: 15 Physical Exam Vital Signs: Last Vital Signs Pulse 85 06/10/25 08:09 Resp 20 06/10/25 08:09 BP 119/74 06/10/25 08:09 Pulse Ox 98 06/10/25 08:09 Oxygen Delivery Method Room Air 06/10/25 08:09 Assessment & Plan Assessment & Plan (1) Lumbar spondylosis: Code(s): M47.816 - Spondylosis without myelopathy or radiculopathy, lumbar region Category: Medical Plan Diagnostic medial branch block L3,L4 dorsal ramus L5 bilateral.? ? ?Informed consent was explained to the patient. All questions were explained and? answered.? The patient was taken inside the operating room where he was positioned prone on the operating table. Time-out was performed delineating correct site, side, the nature of the procedure, patient's allergy, . All operating room staff was participating in OR time-out procedure. ? ? The lower back was prepped with ChloraPrep and draped with sterile utility towels.? C-arm was brought over the operating field and sq picture of L4-, L5 vertebra and S1 AREA were delineated on the screen.? Point of interest were delineated as confluence of superior articular process of L4 and L5 vertebra bilaterally with corresponding transverse processes as well as confluence of the sacral alae bilaterally with superior articular process of S1.? The projection of the point of interest to the skin were injected with the small amount of local anesthetic lidocaine 2% mixed with ropivacaine 0.5% 1-1 approximately 1 cc.? After that 22 gauge 3.5 inch spinal needle was driven sequentially to the points of interest in tunnel vision fashion. After needles gently contacted the bone at the point of interests the needle was injected with small amount of the contrast.? The injection of the contrast did not demonstrate any intravascular or intrathecal spread of the contrast.? After that injection of the? ropivacaine 0.5%-1cc was performed at each needle location.?After that the needles were removed and Bandaids were applied. Orders: Orders FL guidance in treatment room Today M47.816 - Spondylosis without myelopathy or radiculopathy, lumbar region Coding Level of Care Code Procedure Only Diagnoses Lumbar spondylosis M47.816
== END 2025-06-10 08:36 | disposition home or self-care (01) ==
LOC: HO.PMCPRC 08:03
PROVIDERS: PCP Family Medicine; Visit Provider Anesthesiology
DX: M47.816 Spondylosis without myelopathy or radiculopathy, lumbar region (principal)
CPT/HCPCS: 64493; 64494